=== PATIENT | male | born 1945 | race Caucasian/White ===

== ENCOUNTER 2020-10-12 06:08 | Outpatient (REF) | payer OTHER, SELFPAY ==
[2020-10-12 11:42] LABS: Alanine Aminotransferase 22 U/L (0-40); Albumin Level 4.2 g/dL (3.5-5.0); Alkaline Phosphatase 58 U/L (39-117); Anion Gap 12 (12-20); Aspartate Amino Transferase 27 U/L (5-37); Bilirubin Total 0.6 mg/dL (0.0-1.0); Blood Urea Nitrogen 25 mg/dL (9-16); Calcium 8.9 mg/dL (8.4-10.2); Carbon Dioxide 28 mmol/L (22-29); Chloride 100 mmol/L (96-108); Cholesterol 138 mg/dL; Estimated Glomerular Filt Rate > 60; Glucose Fasting 99 mg/dL (60-99); HDL Cholesterol 30 mg/dL; LDL Cholesterol Calculated 90 mg/dl; Potassium 4.3 mmol/L (3.3-5.1); Sodium 136 mmol/L (135-145); Triglycerides 93 mg/dL
[2020-10-12 11:49] LABS: Estimated Average Glucose 117 mg/dL; Hemoglobin A1c % 5.7 %
== END 2020-10-12 06:09 | disposition home or self-care (01) ==
LOC: HO.HMGCLDS 06:08
PROVIDERS: PCP Internal Medicine; Visit Provider Internal Medicine
DX: E78.5 Hyperlipidemia, unspecified (principal); I10 Essential (primary) hypertension; R73.9 Hyperglycemia, unspecified
CPT/HCPCS: 36415; 80053; 80061; 83036

== ENCOUNTER → 2020-10-18 15:07 | Outpatient (BNVA) | payer OTHER, SELFPAY | PROVIDERS: PCP Internal Medicine; Visit Provider Internal Medicine Cardiovascular Disease | DX: I25.10 Atherosclerotic heart disease of native coronary artery without angina pectoris (principal); I10 Essential (primary) hypertension | CPT/HCPCS: 93005 ==

== ENCOUNTER → 2020-10-25 07:42 | Outpatient (REF) | payer OTHER, SELFPAY ==
--- NOTE | 2020-10-25 07:49 | CA_ITS ---
Acquisition Time: 2020-10-25 08:44:19 Total Exercise Time: 00:05:58 Test Indications: Screening for CAD Medications: ASA ATENOLOL LISINOPRIL ATORVASTATIN HCTZ/TRIAMTERENE Protocol: FANTA Max HR: 126 BPM 86% of Pred: 146 BPM Max BP: 158/068 mmHG Max Work Load: 7.0 METS Exercise stress test using Fanta protocol. Total of 5 min 58 sec. METS 7.00, and TAPHR up to 86%. . Denies any anginal sx. EKG with occ. PVC's in Recovery. Ischemic changes seen in some lateral and inferior leads. Normotensive response to exercise. Patient has no symptoms with his previous NE. ? The need for diagnostic cardiac catheterization. tests reviewed with Dr. Casillas Referred By: Klaus Casillas Overread By: Michelle Hodge
== END ==
LOC: HO.CARD 07:42
PROVIDERS: Visit Provider Internal Medicine Cardiovascular Disease
DX: I25.10 Atherosclerotic heart disease of native coronary artery without angina pectoris (principal)
CPT/HCPCS: 93017

== ENCOUNTER 2020-11-15 06:07 | Outpatient (REF) | payer OTHER, SELFPAY ==
[2020-11-15 11:24] LABS: Prothrombin Time 12.1 SEC (10.8-13.0)
[2020-11-15 11:26] LABS: Hematocrit 35.1 % (42-52); Hemoglobin 11.7 g/dl (14.0-18.0); Mean Corpuscular HGB Conc 33.3 g/dl (31.0-36.0); Mean Corpuscular Hemoglobin 29.9 pg (27.0-33.0); Mean Corpuscular Volume 89.8 fL (80-98); Mean Platelet Volume 12.2 fL (9.4-12.4); Platelet Count 133 X10*3/uL (160-400); Red Blood Count 3.91 X10*6/uL (4.60-5.80); Red Cell Distribution Width 12.4 % (11.0-16.0); White Blood Count 5.5 X10*3/uL (4.8-10.8)
[2020-11-15 11:55] LABS: Anion Gap 13 (12-20); Blood Urea Nitrogen 32 mg/dL (9-16); Carbon Dioxide 26 mmol/L (22-29); Chloride 102 mmol/L (96-108); Estimated Glomerular Filt Rate > 60; Glucose Random 100 mg/dL (60-115); Potassium 4.6 mmol/L (3.3-5.1); Sodium 136 mmol/L (135-145)
== END 2020-11-15 06:08 | disposition home or self-care (01) ==
LOC: HO.HMGCLDS 06:07
PROVIDERS: PCP Internal Medicine; Visit Provider Internal Medicine Cardiovascular Disease
DX: I25.10 Atherosclerotic heart disease of native coronary artery without angina pectoris (principal)
CPT/HCPCS: 36415; 80048; 85027; 85610

== ENCOUNTER → 2020-12-13 15:19 | Outpatient (BNVA) | payer OTHER, SELFPAY | PROVIDERS: PCP Internal Medicine; Visit Provider Internal Medicine Cardiovascular Disease ==

== ENCOUNTER → 2021-03-28 14:43 | Outpatient (BNVA) | payer OTHER, SELFPAY | PROVIDERS: PCP Internal Medicine; Referring Provider Internal Medicine; Visit Provider Internal Medicine Cardiovascular Disease | DX: I25.10 Atherosclerotic heart disease of native coronary artery without angina pectoris (principal); I21.9 Acute myocardial infarction, unspecified; I10 Essential (primary) hypertension; R73.9 Hyperglycemia, unspecified; E78.5 Hyperlipidemia, unspecified; Z98.61 Coronary angioplasty status | CPT/HCPCS: 93005 ==

== ENCOUNTER → 2021-09-26 15:02 | Outpatient (BNVA) | payer OTHER, SELFPAY | PROVIDERS: PCP Internal Medicine; Referring Provider Internal Medicine; Visit Provider Internal Medicine Cardiovascular Disease ==

== ENCOUNTER 2021-10-09 05:59 | Outpatient (REF) | payer OTHER, SELFPAY ==
[2021-10-09 11:40] LABS: Hematocrit 35.9 % (42.0-52.0); Hemoglobin 12.1 g/dl (14.0-18.0); Mean Corpuscular HGB Conc 33.7 g/dl (31.0-36.0); Mean Corpuscular Hemoglobin 30.1 pg (27.0-33.0); Mean Corpuscular Volume 89.3 fL (80.0-98.0); Mean Platelet Volume 11.4 fL (9.4-12.4); Platelet Count 139 X10*3/uL (160-400); Red Blood Count 4.02 X10*6/uL (4.60-5.80); Red Cell Distribution Width 12.6 % (11.0-16.0); White Blood Count 5.5 X10*3/uL (4.8-10.8)
[2021-10-09 11:53] LABS: Estimated Average Glucose 114 mg/dL; Hemoglobin A1c % 5.6 %
[2021-10-09 12:05] LABS: Alanine Aminotransferase 17 U/L (0-40); Alkaline Phosphatase 63 U/L (39-117); Anion Gap 11 (12-20); Aspartate Amino Transferase 25 U/L (5-37); Bilirubin Total 0.7 mg/dL (0.0-1.0); Blood Urea Nitrogen 16 mg/dL (9-16); Calcium 9.3 mg/dL (8.4-10.2); Carbon Dioxide 28 mmol/L (22-29); Chloride 100 mmol/L (96-108); Cholesterol 125 mg/dL; Estimated Glomerular Filt Rate > 60; Glucose Fasting 103 mg/dL (60-99); HDL Cholesterol 31 mg/dL; LDL Cholesterol Calculated 79 mg/dl; Potassium 4.2 mmol/L (3.3-5.1); Sodium 135 mmol/L (135-145); Triglycerides 79 mg/dL
== END 2021-10-09 06:00 | disposition home or self-care (01) ==
LOC: HO.HMGCLDS 05:59
PROVIDERS: Visit Provider Internal Medicine
DX: E78.5 Hyperlipidemia, unspecified (principal); I10 Essential (primary) hypertension; I25.10 Atherosclerotic heart disease of native coronary artery without angina pectoris; R73.9 Hyperglycemia, unspecified
CPT/HCPCS: 36415; 80053; 80061; 83036; 85027

== ENCOUNTER 2022-04-18 06:03 | Outpatient (REF) | payer OTHER, SELFPAY ==
[2022-04-18 12:04] LABS: Creatinine Urine 48.22 mg/dL; Microalbum/Creatinine Ratio Ur 16.5 ug/mg cr
[2022-04-18 12:05] LABS: Estimated Average Glucose 111 mg/dL; Hemoglobin A1c % 5.5 %
[2022-04-18 12:30] LABS: Alanine Aminotransferase 23 U/L (0-40); Albumin Level 4.2 g/dL (3.5-5.0); Alkaline Phosphatase 59 U/L (39-117); Anion Gap 13 (12-20); Aspartate Amino Transferase 32 U/L (5-37); Bilirubin Total 0.5 mg/dL (0.0-1.0); Blood Urea Nitrogen 27 mg/dL (9-16); Calcium 9.2 mg/dL (8.4-10.2); Carbon Dioxide 26 mmol/L (22-29); Chloride 99 mmol/L (96-108); Cholesterol 122 mg/dL; Estimated Glomerular Filt Rate > 60; Glucose Fasting 106 mg/dL (60-99); HDL Cholesterol 35 mg/dL; LDL Cholesterol Calculated 68 mg/dl; Potassium 4.3 mmol/L (3.3-5.1); Prostate Specific Antigen Scr 3.31 ng/mL (<0.05-4.0); Sodium 134 mmol/L (135-145); Triglycerides 96 mg/dL
== END 2022-04-18 06:04 | disposition home or self-care (01) ==
LOC: HO.HMGCLDS 06:03
PROVIDERS: PCP Internal Medicine; Visit Provider Internal Medicine
DX: Z12.5 Encounter for screening for malignant neoplasm of prostate (principal); E78.5 Hyperlipidemia, unspecified; R73.9 Hyperglycemia, unspecified; I10 Essential (primary) hypertension; I25.10 Atherosclerotic heart disease of native coronary artery without angina pectoris
CPT/HCPCS: 36415; 80053; 80061; 82043; 83036; 84153

== ENCOUNTER → 2022-05-27 15:45 | Outpatient (BNVA) | payer OTHER, SELFPAY | PROVIDERS: PCP Internal Medicine; Referring Provider Internal Medicine; Visit Provider Internal Medicine Cardiovascular Disease | DX: I10 Essential (primary) hypertension (principal); E78.5 Hyperlipidemia, unspecified; Z98.61 Coronary angioplasty status | CPT/HCPCS: 93005 ==

== ENCOUNTER 2022-11-06 11:51 | Outpatient (REF) | payer OTHER, SELFPAY ==
[2022-11-06 14:41] LABS: Anion Gap 12 (12-20); Blood Urea Nitrogen 21 mg/dL (9-16); Calcium 9.4 mg/dL (8.4-10.2); Carbon Dioxide 28 mmol/L (22-29); Chloride 98 mmol/L (96-108); Estimated Glomerular Filt Rate > 60; Glucose Random 86 mg/dL (60-115); Potassium 4.5 mmol/L (3.3-5.1); Sodium 133 mmol/L (135-145)
== END 2022-11-06 11:52 | disposition home or self-care (01) ==
LOC: HO.HMGCLDS 11:51
PROVIDERS: PCP Internal Medicine; Visit Provider Internal Medicine
DX: E87.1 Hypo-osmolality and hyponatremia (principal); I25.10 Atherosclerotic heart disease of native coronary artery without angina pectoris; R60.9 Edema, unspecified
CPT/HCPCS: 36415; 80048

== ENCOUNTER 2022-11-18 12:58 | Outpatient (REF) | payer OTHER, SELFPAY ==
--- NOTE | ~2022-11-18 | XR_ITS ---
EXAMINATION: XR SHOULDER, LEFT CLINICAL INFORMATION: Left shoulder pain COMPARISON: None TECHNIQUE: Three views of the left shoulder. FINDINGS: No fracture or dislocation. The glenohumeral joint is well aligned with prominent osteophytes and mild narrowing of the joint space. Narrowing of the subacromial space. Moderate hypertrophic degenerative change of the acromioclavicular joint. The visualized lung is clear. The visualized ribs are intact. XR/XR shoulder LT min 2V IMPRESSION: Moderate degenerative changes of the left shoulder.
== END 2022-11-18 12:59 | disposition home or self-care (01) ==
LOC: HO.HMGCX 12:58
PROVIDERS: PCP Internal Medicine; Visit Provider Physician Assistant
DX: M25.512 Pain in left shoulder (principal)
CPT/HCPCS: 73030

== ENCOUNTER → 2022-11-20 14:47 | Outpatient (REF) | payer OTHER, SELFPAY ==
--- NOTE | 2022-11-20 14:49 | CA_ITS ---
Transthoracic Echocardiogram Patient (Last, First, Middle): Zander Brambila, Gender: Male Date of : 1945 Age: 77 Procedure Date: 11/20/2022 Procedure Type: Transthoracic Echocardiogram Location: OP Height: 172. cm Weight: 68.04 kg BSA: 1.80 m2 Heart Rate: 65 bpm BP: 135 / 55 mmHg Bulk Coolers Installer: BLANK Referring MD: Hollie Starks MD Symptoms: I25.10 - Atherosclerotic heart disease of [place] coronary artery without... Study Quality: Fair ECG Rhythm: Sinus Conclusions: - The left ventricular systolic function is normal. The calculated ejection fraction is 57% by biplane method. - The basal inferior segment is akinetic. Findings Left Ventricle Normal left ventricular cavity size. There is normal left ventricular wall thickness. The left ventricular systolic function is normal. The calculated ejection fraction is 57% by biplane method. There is evidence of regional wall motion abnormalities. Wall Motion Rest Echo Findings The basal inferior segment is akinetic. Aortic Valve There is no aortic valve stenosis. Mitral Valve There is mild mitral annular calcification. There is no mitral valve stenosis. Great Vessels The asc aorta is normal in size. Small plaque is seen in the sino tubular ridge. Pericardium/Pleural There is no evidence of pericardial effusion. Prior Study Comparison No significant change compared to prior study dated: 02/08/2019. Inferior wall motion abnormality noted on prior images. Measurements 2D Linear Measurements IVSd: 0.81 0.6-0.9/0.6-1.0 cm LVIDd: 4.36 3.9-5.3/4.2-5.9 cm LVIDd Index: 2.42 2.4-3.2/2.2-3.1 cm/m2 LVIDs: 2.98 2.0-3.6 cm LVPWd: 0.90 0.7-1.1 cm LV Mass: 146.97 67-162/88-224 g LV Mass Index: 81.65 43-95/49-115 g/m2 LVOT Diam: 2.20 3.0+(-)1.3 cm 2D Systolic Function EF 4C: 63.70 >55% EF 2C: 53.60 >55% EF BiP: 56.70 >55% LVOT LVOT Pk Harry: 0.84 LVOT Mn Harry: 0.58 LVOT VTI: 0.20 LVOT Pk Grad: 3.00 LVOT Mn Grad: 2.00 LVOT Diam: 2.20 LVOT Area: 3.80 Tricuspid Valve RA Press: 3.00 Updated in Other Vendor System with Status of Final Austin Kim MD electronically signed on 11/20/2022 3:54:32 PM with status of Final
== END ==
LOC: HO.CARD 14:47
PROVIDERS: Visit Provider Internal Medicine
DX: R60.9 Edema, unspecified (principal); I25.10 Atherosclerotic heart disease of native coronary artery without angina pectoris; E87.1 Hypo-osmolality and hyponatremia
CPT/HCPCS: 93308

== ENCOUNTER 2022-11-25 14:19 | Outpatient (REF) | payer OTHER, SELFPAY ==
[2022-11-25 15:08] LABS: Influenza A PCR NEGATIVE (Negative); Influenza B PCR NEGATIVE (Negative); Resp Syncy Virus RNA Qual PCR NEGATIVE (Negative); SARS COV2 PCR INHOUSE NEGATIVE (Negative)
== END 2022-11-25 14:20 | disposition home or self-care (01) ==
LOC: HO.LNP 14:19
PROVIDERS: Visit Provider Internal Medicine
DX: Z20.822 Contact with and (suspected) exposure to COVID-19 (principal); R43.9 Unspecified disturbances of smell and taste
CPT/HCPCS: 0241U

== ENCOUNTER → 2022-12-19 10:58 | Outpatient (BNVA) | payer OTHER, SELFPAY | PROVIDERS: PCP Internal Medicine; Visit Provider Physician Assistant | DX: M19.012 Primary osteoarthritis, left shoulder (principal) | CPT/HCPCS: 20610; J1040 ==

== ENCOUNTER 2023-04-21 06:02 | Outpatient (REF) | payer OTHER, SELFPAY ==
[2023-04-21 08:15] LABS: B Type Natriuretic Peptide 98 pg/mL (<100)
[2023-04-21 11:59] LABS: MANUAL DIFF FLAG NO
[2023-04-21 12:38] LABS: Basophils Percent Auto 0.8 % (0-2); Eosinophils Absolute Auto 0.4 X10*3/uL (0.0-0.4); Eosinophils Percent Auto 8.4 % (0-4); Hematocrit 33.6 % (42.0-52.0); Hemoglobin 11.8 g/dl (14.0-18.0); Imm Gran Abs Auto 0.01 X10*3/uL (0.00-0.03); Imm Gran Pct Auto 0.2 % (0.0-0.4); Lymphocytes Absolute Auto 1.3 X10*3/uL (1.2-4.9); Lymphocytes Percent Auto 25.7 % (20-40); Mean Corpuscular HGB Conc 35.1 g/dl (31.0-36.0); Mean Corpuscular Volume 88.2 fL (80.0-98.0); Mean Platelet Volume 12.2 fL (9.4-12.4); Monocytes Absolute Auto 0.6 X10*3/uL (0.1-1.2); Monocytes Percent Auto 11.4 % (2-11); Neutrophils Absolute Auto 2.7 x10*3/uL (2.0-8.3); Neutrophils Percent Auto 53.5 % (45-73); Platelet Count 120 X10*3/uL (160-400); Red Blood Count 3.81 X10*6/uL (4.60-5.80); Red Cell Distribution Width 12.6 % (11.0-16.0); White Blood Count 5.1 X10*3/uL (4.8-10.8)
[2023-04-21 12:41] LABS: Alanine Aminotransferase 21 U/L (0-40); Albumin Level 3.9 g/dL (3.5-5.0); Alkaline Phosphatase 58 U/L (39-117); Anion Gap 11 (12-20); Aspartate Amino Transferase 31 U/L (5-37); Bilirubin Total 0.6 mg/dL (0.0-1.0); Blood Urea Nitrogen 18 mg/dL (9-16); Calcium 9.3 mg/dL (8.4-10.2); Carbon Dioxide 26 mmol/L (22-29); Chloride 101 mmol/L (96-108); Cholesterol 121 mg/dL; Estimated Glomerular Filt Rate > 60; Glucose Fasting 105 mg/dL (60-99); HDL Cholesterol 37 mg/dL; LDL Cholesterol Calculated 66 mg/dl; Potassium 3.9 mmol/L (3.3-5.1); Sodium 134 mmol/L (135-145); Total Protein 7.2 g/dL (6.5-8.0); Triglycerides 92 mg/dL
[2023-04-22 05:50] LABS: Estimated Average Glucose 111 mg/dL; Hemoglobin A1c % 5.5 %
== END 2023-04-21 06:03 | disposition home or self-care (01) ==
LOC: HO.HMGCLDS 06:02
PROVIDERS: PCP Internal Medicine; Visit Provider Internal Medicine
DX: Z00.00 Encounter for general adult medical examination without abnormal findings (principal); E78.5 Hyperlipidemia, unspecified; E87.1 Hypo-osmolality and hyponatremia; I25.10 Atherosclerotic heart disease of native coronary artery without angina pectoris; R73.9 Hyperglycemia, unspecified; I10 Essential (primary) hypertension
CPT/HCPCS: 36415; 80053; 80061; 83036; 83880; 85025

== ENCOUNTER 2023-04-28 13:00 | Outpatient (AMB) | payer OTHER, SELFPAY ==
[2023-04-28 13:34] VITALS: BP 108/62; PULSE 57; O2SAT 98; BMI 22.7
--- NOTE | 2023-04-28 13:34 | A.OFFPC_ITS ---
Vital Signs 04/28/23 13:34 Height 5 ft 8 in Weight 149 lb BMI 22.7 BP 108/62 Blood Pressure Location Lt brachial Position Sitting Pulse 57 Pulse Source Pulse Oximeter Pulse Oximetry (%) 98 Oxygen Delivery Method Room Air Intake Visit Reasons: Annual Physical Intake Note: Pt is here today for PE. Allergies No Known Allergies [No Known Allergies*] Allergy (Verified 04/28/23 13:37) Medication List - Last Reconciled 04/28/23 by Hollie Starks MD aspirin 81 mg PO DAILY atenolol (Tenormin) 50 mg PO DAILY atorvastatin (Lipitor) 40 mg PO DAILY clopidogrel 75 mg PO DAILY dextromethorphan-guaifenesin 10-200 mg (Coricidin HBP Chest Congestion-Cough) 1 tab-cap PO Q8H PRN fluticasone propionate 50 mcg/actuation (Flonase Allergy Relief) 1 spray i ntranasal BID PRN fluticasone propionate 50 mcg/actuation (Flonase Allergy Relief) 1 spray intranasal DAILY lisinopril (Zestril) 40 mg PO DAILY sildenafil (Viagra) 50 mg PO DAILY PRN sildenafil (Viagra) 100 mg PO DAILY PRN triamterene-hydrochlorothiazid 37.5-25 mg 1 cap PO QAM Tobacco use date assessed: 04/28/23 Fall risk assessment: No Falls in past year Last assessed Fall Risk: 04/28/23 Dental Screening Dental Screen Date: 04/28/23 Did you have a dental visit in the last 12 months?: Yes Did you have a dental problem in the last 6 months where you did not have access to dental care?: No Was dental information given to patient?: Patient has dentist HPI Annual Physical HPI Details Pt presents for PE PFSH Medical History Hernia Herniated disc Hyperglycemia Hyperlipidemia Hypertension Normocytic anemia Surgical History S/P colonoscopic polypectomy Family History Father Pneumonia Mother Diabetes mellitus Sister No problems noted. 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 1. Little interest or pleasure in doing things: not at all 2. Feeling down, depressed, or hopeless: not at all 3. Trouble falling or staying asleep, or sleeping too much: not at all 4. Feeling tired or having little energy: not at all 5. Poor appetite or overeating: not at all 6. Feeling bad about yourself - or that you are a failure or have let yourself or your family down: not at all 7. Trouble concentrating on things, such as reading the newspaper or watching television: not at all 8. Moving or speaking so slowly that other people could have noticed. Or the opposite - being so fidgety or restless that you have been moving around a lot more than usual: not at all 9. Thoughts that you would be better off or of hurting yourself in some way: not at all Total score: 0 Depression Screening Interpretation: Negative Source: Developed by Drs. Efrain Nelson, Kathleen Strong, Matt Mason and colleagues, with an educational jamila from [employer] Thrive Questionnaire Date Thrive assessed: 04/28/23 I am a: Patient What is your living situation today?: I have a steady place to live Within the past 12 months, did the food you bought not last and you didn't have the money to get more?: Never true Within the past 12 months, did you worry whether your food would run out before you got money to buy more?: Never true Do you have trouble paying for medicines?: No Do you have trouble getting transportation to medical appointments?: No Do you have trouble paying your heating and electricity bill?: No Do you have trouble taking care of your child, family member or friend?: No Do you have trouble with day-to-day activities such as bathing, preparing meals, shopping, managing finances, etc.?: No Are you currently unemployed and looking for a job?: No Are you interested in more education?: No Please select the resources that you would like help with: None Currently or been in a relationship where the following occur: no concerns reported AUDIT C Alcohol Use Questionnaire (AUDIT-C) 1. How often do you have a drink containing alcohol?: Monthly or less 2. How many drinks containing alcohol do you have on a typical day when you are drinking?: 1 or 2 3. How often do you have six or more drinks on one occasion?: Never Total Score: 1 MARLEY-7 AMB Questionnaire MARLEY-7 Date MARLEY - 7 assessed: 04/28/23 Feeling nervous, anxious, or on edge: 0 = Not at all Not being able to stop or control worryin = Not at all Worrying too much about different things: 0 = Not at all Trouble relaxin = Not at all Being so restless that it is hard to sit still: 0 = Not at all Becoming easily annoyed or irritable: 0 = Not at all Feeling afraid as if something awful might happen: 0 = Not at all Total MARLEY-7 score (0-4 normal; 5-9 mild; 10-14 moderate; 15-21 severe): 0 Source: Developed by Drs. Efrain Nelson, Kathleen Strong, Matt Mason and colleagues, with an educational jamila from [employer]. Review of Systems Const All systems reviewed & are unremarkable except as noted in HPI and below Reports no additional complaints Eyes Reports no additional complaints ENT Reports no additional complaints Card Reports no additional complaints Resp Reports no additional complaints GI Reports no additional complaints Reports no additional complaints Physical exam (Primary Care) Vital Signs: Last Vital Signs Pulse 57 04/28/23 13:34 BP 108/62 04/28/23 13:34 Pulse Ox 98 04/28/23 13:34 Oxygen Delivery Method Room Air 04/28/23 13:34 BMI result Body Mass Index 22.7 Tobacco/Smoking Status: Tobacco use Status Tobacco use date assessed 04/28/23 04/28/23 13:40 Patient Tobacco Use Status Former Tobacco user 04/28/23 13:36 e-Cigarette/Vaping Use Never Used 04/28/23 13:36 PHQ-9: PHQ-9 Score PHQ-9: Total score 0 04/28/23 13:41 Depression Screening Interpretation: Negative Thrive Assessment: Date of Thrive Assessment Date Thrive assessed 04/28/23 04/28/23 13:41 Currently or been in a relationship where the following occur: no concerns reported Const General: no acute distress HENMT Ears: hearing grossly normal bilaterally Mouth: Normal oral and palatal mucosa present Eyes General: appearance normal, both eyes and all related structures Resp Effort & Inspection: normal respiratory effort Auscultation: clear to auscultation bilaterally Cardio Rhythm: regular rhythm Heart sounds: S1 normal heart sound present and S2 normal heart sound present Bruits: Abdominal aortic bruit present GI Inspection: Yes normal to inspection Palpation (GI): Abdominal aortic bruit present Extrem General: Yes no clubbing, cyanosis or edema Assessment and Plan Assessment & Plan (1) Hyperglycemia: Code(s): R73.9 - Hyperglycemia, unspecified Plan: A1c is 5.5, continue ADA diet regular exercise (2) Hyperlipidemia: Code(s): E78.5 - Hyperlipidemia, unspecified Plan: Continue statin (3) Hypertension: Comment: Stable Code(s): I10 - Essential (primary) hypertension Plan: Continue current medications (4) CAD (coronary artery disease): Comment: silent ischemia. 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 He has FFR positive mid LAD stenosis which is collateralizing the right coronary artery. s/p MICHAEL placement 11/2020 Code(s): I25.10 - Atherosclerotic heart disease of [place] coronary artery without angina pectoris (5) Annual physical exam: Code(s): Z00.00 - Encounter for general adult medical examination without abnormal findings Plan: Return for physical in 1 year Orders: Orders Comprehensive [place]. Panel Fast 365 Days E78.5 - Hyperlipidemia, unspecified, I10 - Essential (primary) hypertension, I25.10 - Atherosclerotic heart disease of [place] coronary artery without angina pectoris, R73.9 - Hyperglycemia, unspecified Complete Blood Count Auto Diff 365 Days E78.5 - Hyperlipidemia, unspecified, I10 - Essential (primary) hypertension, I25.10 - Atherosclerotic heart disease of [place] coronary artery without angina pectoris, R73.9 - Hyperglycemia, unspecified Lipid Panel 365 Days E78.5 - Hyperlipidemia, unspecified, I10 - Essential (p rimary) hypertension, I25.10 - Atherosclerotic heart disease of [place] coronary artery without angina pectoris, R73.9 - Hyperglycemia, unspecified PSA,Total (Free>4and<10) 365 Days E78.5 - Hyperlipidemia, unspecified, I10 - Essential (primary) hypertension, I25.10 - Atherosclerotic heart disease of [place] coronary artery without angina pectoris, R73.9 - Hyperglycemia, un specified Hemoglobin A1c 365 Days E78.5 - Hyperlipidemia, unspecified, I10 - Essential (primary) hypertension, I25.10 - Atherosclerotic heart disease of [place] coronary artery without angina pectoris, R73.9 - Hyperglycemia, unspecified Coding Level of Care Code Est Pt Prev Care >65y(67184) Diagnoses Hyperglycemia R73.9 Hyperlipidemia E78.5 Hypertension I10 CAD (coronary artery disease) I25.10 Annual physical exam Z00.00
== END 2023-04-28 14:19 | disposition home or self-care (01) ==
PROVIDERS: PCP Internal Medicine; Visit Provider Internal Medicine
DX: R73.9 Hyperglycemia, unspecified (principal); E78.5 Hyperlipidemia, unspecified; I10 Essential (primary) hypertension; I25.10 Atherosclerotic heart disease of native coronary artery without angina pectoris; Z00.00 Encounter for general adult medical examination without abnormal findings
CPT/HCPCS: 99397

== ENCOUNTER 2023-05-14 14:01 | Outpatient (AMB) | payer OTHER, SELFPAY ==
--- NOTE | 2023-05-14 14:12 | A.OFFVIS_ITS ---
Intake Vital Signs 05/14/23 14:13 Height 5 ft 8 in Weight 150 lb 5.684 oz BMI 22.9 BP 102/54 L Blood Pressure Location Lt brachial Position Sitting Pulse 63 Pulse Source Monitor Intake Visit Reasons: 1 YEAR FOLLOW UP Intake Note: 1 year follow up with EKG. Telecommunications Technician Required: No Accompanied by: Self / Same As Patient Allergies No Known Allergies [No Known Allergies*] Allergy (Verified 05/14/23 14:16) Medication List - Last Reconciled 05/14/23 by Klaus Casillas MD aspirin 81 mg PO DAILY atenolol (Tenormin) 50 mg PO DAILY atorvastatin (Lipitor) 40 mg PO DAILY clopidogrel 75 mg PO DAILY dextromethorphan-guaifenesin 10-200 mg (Coricidin HBP Chest Congestion-Cough) 1 tab-cap PO Q8H PRN fluticasone propionate 50 mcg/actuation (Flonase Allergy Relief) 1 spray intranasal DAILY lisinopril (Zestril) 40 mg PO DAILY sildenafil (Viagra) 100 mg PO DAILY PRN triamterene-hydrochlorothiazid 37.5-25 mg 1 cap PO QAM HPI HPI Comments History of Present Illness Details 78-year-old gentleman here for follow-up. He has background history of known coronary artery disease with occluded right coronary artery and severe LAD stenosis which was FFR positive. He was taken for PCI to LAD. He had right radial artery dissection. He is asymptomatic. No bleeding issues. He has been following Mediterranean diet and has lost 20 pounds. 05/14/2023: He returns for follow-up. He has been doing well. He continues to work 40 hours per week. No chest discomfort shortness of breath. He had some shoulder injury and is asking whether he can use NSAIDs. I have advised him to use them as needed and not regularly specially not multiple doses in a day. He has been taking aspirin Plavix since his PCI. [facility] Medical History Hernia Herniated disc Hyperglycemia Hyperlipidemia Hypertension Normocytic anemia Surgical History S/P colonoscopic polypectomy Family History Father Pneumonia Mother Diabetes mellitus Sister No problems noted. 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 Cognitive needs: No Hearing needs: Yes Vision needs: No Review of Systems Const Denies weakness ENT Denies dizziness Card Denies chest pain, Denies chest pain with activity, Denies syncope, Denies rapid heart rate, Denies pedal edema, Denies edema, Denies leg edema, Denies lightheadedness, Denies palpitations, Denies dyspnea, Denies dyspnea on exertion and Denies orthopnea Resp Denies cough, Denies dyspnea and Denies dyspnea on exertion GI Denies hematochezia and Denies change in stool character Musc Denies abnormal gait, Denies muscle cramps, Denies muscle weakness, Denies numbness, Denies radiating pain into limb and Denies tingling Neuro Denies abnormal gait, Denies dizziness, Denies syncope, Denies numbness, Denies tingling and Denies weakness Endo Denies palpitations Physical Exam Vital Signs: Last Vital Signs Pulse 63 05/14/23 14:13 BP 102/54 L 05/14/23 14:13 BMI result Body Mass Index 22.9 GENERAL APPEARANCE: in no acute distress, well developed, well nourished. NECK/THYROID: no carotid bruit, no jugular venous distention. SKIN: no suspicious lesions, warm and dry. HEART: no murmurs, regular rate and rhythm, S1, S2 normal. LUNGS: clear to auscultation bilaterally. ABDOMEN: normal, bowel sounds present, soft, nontender, nondistended. EXTREMITIES: no clubbing, cyanosis, or edema. PERIPHERAL PULSES: equal. NEUROLOGIC: nonfocal, alert and oriented. PSYCH: mood/affect full range. Office Procedures EKG Details: Sinus rhythm 63 beats per minute, normal ECG, QTC 409 milliseconds. [id number], Complete Assessment & Plan Assessment & Plan (1) Stable angina: Code(s): I20.8 - Other forms of angina pectoris Plan: Pleasant 78-year-old gentleman who is presenting for follow-up. He previously had LAD PCI. He has been doing well. No chest discomfort shortness of breath. He is doing well. I have advised him to stop the aspirin and use Plavix monotherapy going forward. He can use NSAIDs as needed but not regularly. I have advised him to use Tylenol more regularly if he has pain in his shoulder. Thank you for allowing me to participate in the care of your patient. Please feel free to contact me if you have any questions. Medications: Discontinued aspirin Discontinued Reason: Doctor's Order 81 mg PO DAILY 90 tabs 3RF Coding Level of Care Code Est Pt Level 3 (00478) Diagnoses Stable angina I20.8 CPT Codes EKG - CPT: 99742-[id number], Complete ([id number])
[2023-05-14 14:13] VITALS: BP 102/54; PULSE 63; BMI 22.9
== END 2023-05-14 14:36 | disposition home or self-care (01) ==
PROVIDERS: PCP Internal Medicine; Visit Provider Internal Medicine Cardiovascular Disease
DX: I20.8 Other forms of angina pectoris (principal)
CPT/HCPCS: 93010; 99213

== ENCOUNTER → 2023-05-14 14:01 | Outpatient (BNVA) | payer OTHER, SELFPAY | PROVIDERS: PCP Internal Medicine; Visit Provider Internal Medicine Cardiovascular Disease | DX: I20.8 Other forms of angina pectoris (principal) | CPT/HCPCS: 93005 ==

== ENCOUNTER 2023-05-19 13:25 | Outpatient (AMB) | payer OTHER, SELFPAY ==
--- NOTE | 2023-05-19 13:54 | MHC.OFFWIV ---
Intake Vital Signs 05/19/23 14:04 Height 5 ft 8 in Weight 146 lb BMI 22.2 BP 132/80 Blood Pressure Location Lt brachial Position Sitting Pulse 65 Pulse Source Pulse Oximeter Temp 97.6 F Temp Source Temporal Artery Scan Pulse Oximetry (%) 98 Oxygen Delivery Method Room Air Intake Visit Reasons: EP Muscle weak/Flu (masked) Intake Note: Pt is here c/o body aches, and diarhea. Patient Tobacco Use Status: Former Tobacco user Quit Date: 1983 Allergies No Known Allergies [No Known Allergies*] Allergy (Verified 05/19/23 14:35) Medication List - Last Reconciled 05/19/23 by Henrry Martinez MD atenolol (Tenormin) 50 mg PO DAILY atorvastatin (Lipitor) 40 mg PO DAILY clopidogrel 75 mg PO DAILY dextromethorphan-guaifenesin 10-200 mg (Coricidin HBP Chest Congestion-Cough) 1 tab-cap PO Q8H PRN fluticasone propionate 50 mcg/actuation (Flonase Allergy Relief) 1 spray intranasal DAILY lisinopril (Zestril) 40 mg PO DAILY sildenafil (Viagra) 100 mg PO DAILY PRN triamterene-hydrochlorothiazid 37.5-25 mg 1 cap PO QAM Do you need a note to return to daycare/school/sports/work: No HPI EP Muscle weak/Flu (masked) HPI Details 78-year-old male presents to the office for a sick visit. He is complaining of weakness, fatigue and shoulder pain for the past day. Patient complains of pain in the upper part of the neck. Is also feeling symptoms of malaise and fatigue. Started having symptoms of diarrhea this morning. [facility] Medical History Hernia Herniated disc Hyperglycemia Hyperlipidemia Hypertension Normocytic anemia Surgical History S/P colonoscopic polypectomy Family History Father Pneumonia Mother Diabetes mellitus Sister No problems noted. 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 Cognitive needs: No Hearing needs: Yes Vision needs: No Physical Exam Vital Signs: Last Vital Signs Temp 97.6 F 05/19/23 14:04 Pulse 65 05/19/23 14:04 BP 132/80 05/19/23 14:04 Pulse Ox 98 05/19/23 14:04 Oxygen Delivery Method Room Air 05/19/23 14:04 BMI result Body Mass Index 22.2 Const General: cooperative and healthy appearing Nutritional Appearance: well nourished Orientation/consciousness: patient oriented x3 Limitations: no limitations HEENT Head: Yes normal to inspection Eyes General: appearance normal, both eyes and all related structures Neck Neck: Yes normal visual inspection Chest Chest palpation & inspection: normal palpation of entire chest wall Resp Effort & Inspection: normal respiratory effort Neuro General: patient oriented x3 Extrem Other: Right shoulder: Movement arm at the shoulder causes crepitus. Full range of motion Assessment & Plan Assessment & Plan (1) Shoulder strain: Code(s): S46.919A - Strain of unspecified muscle, fascia and tendon at shoulder and upper arm level, unspecified arm, initial encounter Plan: X-ray images personally reviewed by me, evidence of DJD. I suggested he contact his PCP for a referral to Orthopedic surgery for possible steroid injections. COVID testing and Lyme testing done. Will call with the results. Orders: Orders Liver Panel Today S43.401A - Unspecified sprain of right shoulder joint, initial encounter, S46.919A - Strain of unspecified muscle, fascia and tendon at shoulder and upper arm level, unspecified arm, initial encounter Basic Metabolic Panel Today S43.401A - Unspecified sprain of right shoulder joint, initial encounter, S46.919A - Strain of unspecified muscle, fascia and tendon at shoulder and upper arm level, unspecified arm, initial encounter SARS-CoV2/FLU/RSV Today R43.9 - Unspecified disturbances of smell and taste, S43.401A - Unspecified sprain of right shoulder joint, initial encounter, S46.919A - Strain of unspecified muscle, fascia and tendon at shoulder and upper arm level, unspecified arm, initial encounter Erythrocyte Sedimentation Rate Today S43.401A - Unspecified sprain of right shoulder joint, initial encounter, S46.919A - Strain of unspecified muscle, fascia and tendon at shoulder and upper arm level, unspecified arm, initial encounter Complete Blood Count no Diff Today S43.401A - Unspecified sprain of right shoulder joint, initial encounter, S46.919A - Strain of unspecified muscle, fascia and tendon at shoulder and upper arm level, unspecified arm, initial encounter Creatine Kinase Total Today S43.401A - Unspecified sprain of right shoulder joint, initial encounter, S46.919A - Strain of unspecified muscle, fascia and tendon at shoulder and upper arm level, unspecified arm, initial encounter XR shoulder RT min 2V Today S43.401A - Unspecified sprain of right shoulder joint, initial encounter Lyme IgG/IgM w/reflex to WB Today S43.401A - Unspecified sprain of right shoulder joint, initial encounter Coding Level of Care Code Est Pt Level 4 (06159) Diagnoses Shoulder strain S46.919A
[2023-05-19 14:04] VITALS: BP 132/80; PULSE 65; TEMP 36.4; O2SAT 98; BMI 22.2
== END 2023-05-19 14:50 | disposition home or self-care (01) ==
PROVIDERS: PCP Internal Medicine; Visit Provider Internal Medicine
DX: S46.919A Strain of unspecified muscle, fascia and tendon at shoulder and upper arm level, unspecified arm, initial encounter (principal)
CPT/HCPCS: 99214

== ENCOUNTER 2023-05-19 14:32 | Outpatient (REF) | payer OTHER, SELFPAY ==
--- NOTE | ~2023-05-19 | XR_ITS ---
EXAMINATION: XR SHOULDER, RIGHT CLINICAL INFORMATION: Right shoulder sprain. COMPARISON: Right shoulder 03/29/2020. TECHNIQUE: Three views of the right shoulder. FINDINGS: Alignment is anatomic. Mild degenerative changes across the glenohumeral joint with inferior glenoid spurring. Moderate degenerative changes at the acromioclavicular joint with undersurface spurring of the acromion. The visualized lungs are clear. The visualized rib cage appears normal. XR/XR shoulder RT min 2V IMPRESSION: Degenerative changes in the shoulder. No fracture.
[2023-05-19 16:25] LABS: Alanine Aminotransferase 19 U/L (0-40); Albumin Level 4.5 g/dL (3.5-5.0); Alkaline Phosphatase 68 U/L (39-117); Anion Gap 16 (12-20); Aspartate Amino Transferase 28 U/L (5-37); Bilirubin Direct 0.3 mg/dL (0.0-0.5); Bilirubin Total 0.7 mg/dL (0.0-1.0); Blood Urea Nitrogen 41 mg/dL (9-16); Calcium 9.9 mg/dL (8.4-10.2); Carbon Dioxide 23 mmol/L (22-29); Chloride 98 mmol/L (96-108); Estimated Glomerular Filt Rate 34; Glucose Random 103 mg/dL (60-115); Potassium 4.2 mmol/L (3.3-5.1); Sodium 133 mmol/L (135-145); Total Protein 8.2 g/dL (6.5-8.0)
[2023-05-19 16:46] LABS: Hematocrit 36.7 % (42.0-52.0); Hemoglobin 12.9 g/dl (14.0-18.0); Mean Corpuscular HGB Conc 35.1 g/dl (31.0-36.0); Mean Corpuscular Hemoglobin 31.5 pg (27.0-33.0); Mean Corpuscular Volume 89.5 fL (80.0-98.0); Mean Platelet Volume 11.9 fL (9.4-12.4); Platelet Count 137 X10*3/uL (160-400); White Blood Count 4.3 X10*3/uL (4.8-10.8)
[2023-05-19 16:56] LABS: Influenza A PCR NEGATIVE (Negative); Influenza B PCR NEGATIVE (Negative); Resp Syncy Virus RNA Qual PCR NEGATIVE (Negative); SARS COV2 PCR INHOUSE POSITIVE (Negative)
[2023-05-19 17:32] LABS: Erythrocyte Sedimentation Rate 27 MM/HR (0-15)
[2023-05-21 05:20] LABS: Lyme Abs Screen <0.90 index
== END 2023-05-19 14:33 | disposition home or self-care (01) ==
LOC: HO.HMGCX 14:32
PROVIDERS: PCP Internal Medicine; Visit Provider Internal Medicine
DX: S43.401A Unspecified sprain of right shoulder joint, initial encounter (principal); S46.919A Strain of unspecified muscle, fascia and tendon at shoulder and upper arm level, unspecified arm, initial encounter; X58.XXXA Exposure to other specified factors, initial encounter; Y93.9 Activity, unspecified; Y92.9 Unspecified place or not applicable; Y99.9 Unspecified external cause status; R43.9 Unspecified disturbances of smell and taste; M25.511 Pain in right shoulder; Z20.828 Contact with and (suspected) exposure to other viral communicable diseases
CPT/HCPCS: 0241U; 36415; 73030; 80048; 80076; 82550; 85027; 85652; 86617; 86618

== ENCOUNTER 2023-05-27 10:30 | Outpatient (REF) | payer OTHER, SELFPAY ==
[2023-05-27 14:07] LABS: Anion Gap 12 (12-20); Blood Urea Nitrogen 20 mg/dL (9-16); Calcium 9.7 mg/dL (8.4-10.2); Carbon Dioxide 25 mmol/L (22-29); Chloride 100 mmol/L (96-108); Estimated Glomerular Filt Rate > 60; Glucose Random 94 mg/dL (60-115); Potassium 4.4 mmol/L (3.3-5.1); Sodium 133 mmol/L (135-145)
== END 2023-05-27 10:31 | disposition home or self-care (01) ==
LOC: HO.HMGCLDS 10:30
PROVIDERS: PCP Internal Medicine; Visit Provider Internal Medicine
DX: N17.9 Acute kidney failure, unspecified (principal)
CPT/HCPCS: 36415; 80048

== ENCOUNTER 2023-06-12 08:23 | Outpatient (AMB) | payer OTHER, SELFPAY ==
--- NOTE | 2023-06-12 08:30 | MHC.PC.OV ---
Vital Signs 06/12/23 08:31 Height 5 ft 8 in Weight 147 lb BMI 22.3 BP 106/60 Blood Pressure Location Lt brachial Position Sitting Pulse 61 Pulse Source Pulse Oximeter Pulse Oximetry (%) 98 Oxygen Delivery Method Room Air Intake Visit Reasons: Followup COVID-sinus congestion Intake Note: Pt is here today for a follow up visit after Covid. Pt c/o sinus congestion. Allergies No Known Allergies [No Known Allergies*] Allergy (Verified 06/12/23 08:32) Medication List - Last Reconciled 06/12/23 by Hollie Stakrs MD atenolol (Tenormin) 50 mg PO DAILY atorvastatin (Lipitor) 40 mg PO DAILY clopidogrel 75 mg PO DAILY dextromethorphan-guaifenesin 10-200 mg (Coricidin HBP Chest Congestion-Cough) 1 tab-cap PO Q8H PRN fluticasone propionate 50 mcg/actuation (Flonase Allergy Relief) 1 spray intranasal DAILY lisinopril (Zestril) 40 mg PO DAILY sildenafil (Viagra) 100 mg PO DAILY PRN triamterene-hydrochlorothiazid 37.5-25 mg 1 cap PO QAM Tobacco use date assessed: 04/28/23 HPI Followup COVID-sinus congestion HPI Details Pt presents c/o nasal congestion and clear discharge for 3 weeks. Patient tested positive for COVID 3 weeks ago. He denies fever chills shortness of breath sore throat facial pain. Patient denies seasonal allergies. He has been using Flonase nasal spray and taking Claritin for the last 3 days without significant relief. Hypertension is controlled on current medications [facility] Medical History Hernia Herniated disc Hyperglycemia Hyperlipidemia Hypertension Normocytic anemia Surgical History S/P colonoscopic polypectomy Family History Father Pneumonia Mother Diabetes mellitus Sister No problems noted. 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 Efrain Nelson, Kathleen Strong, Matt Mason and colleagues, with an educational jamila from [employer]. Review of Systems Const All systems reviewed & are unremarkable except as noted in HPI and below Reports no additional complaints Eyes Reports no additional complaints ENT Reports no additional complaints Card Reports no additional complaints Resp Reports no additional complaints GI Reports no additional complaints Reports no additional complaints Physical exam (Primary Care) Vital Signs: Last Vital Signs Pulse 61 06/12/23 08:31 BP 106/60 06/12/23 08:31 Pulse Ox 98 06/12/23 08:31 Oxygen Delivery Method Room Air 06/12/23 08:31 BMI result Body Mass Index 22.3 Tobacco/Smoking Status: Tobacco use Status Tobacco use date assessed 04/28/23 06/12/23 08:34 Patient Tobacco Use Status Former Tobacco user 06/12/23 08:34 e-Cigarette/Vaping Use Never Used 06/12/23 08:34 Thrive Assessment: Date of Thrive Assessment Date Thrive assessed 04/28/23 06/12/23 08:34 Const General: no acute distress [facility] General nose exam: Normal external nose present, Abnormal mucous membranes and turbinates present erythematous bilateral and Nasal discharge present mucoid Face and sinus: Yes normal facial exam and No sinus tenderness Neck Neck: Yes no lymphadenopathy and Yes supple Resp Auscultation: clear to auscultation bilaterally Cardio Rhythm: regular rhythm Heart sounds: S1 normal heart sound present and S2 normal heart sound present Assessment and Plan Assessment & Plan (1) Allergic rhinitis: Code(s): J30.9 - Allergic rhinitis, unspecified Plan: Continue Claritin and prednisone 20 mg daily for 5 days is prescribed. Patient was advised to use saline nasal spray (2) Hypertension: Comment: Stable Code(s): I10 - Essential (primary) hypertension Plan: cont meds Medications: New prednisone 20 mg PO DAILY 5 tabs 0RF Coding Level of Care Code Est Pt Level 3 (77402) Diagnoses Allergic rhinitis J30.9 Hypertension I10
[2023-06-12 08:31] VITALS: BP 106/60; PULSE 61; O2SAT 98; BMI 22.3
== END 2023-06-12 08:55 | disposition home or self-care (01) ==
PROVIDERS: PCP Internal Medicine; Visit Provider Internal Medicine
DX: J30.9 Allergic rhinitis, unspecified (principal); I10 Essential (primary) hypertension
CPT/HCPCS: 99213

== ENCOUNTER 2023-06-25 12:45 | Outpatient (AMB) | payer OTHER, SELFPAY ==
--- NOTE | 2023-06-25 12:50 | A.OFFVIS_ITS ---
Intake Vital Signs 06/25/23 12:54 Height 5 ft 8 in Weight 147 lb BMI 22.3 Intake Visit Reasons: ov- Primary osteoarthritis, left shoulder Intake Note: Zander is a 77 year old male who presents today for a follow up of left shoulder, last injection 12/19/22. Patient reports having bilateral shoulder pain. States last injection provided him relief until recently the past 3 weeks his pain returned. He has complaints of right shoulder pain since April and was seen at [facility] where xrays were taken and told he has arthritis. He is requesting to have bilateral shoulder cortisone injections. Allergies No Known Allergies [No Known Allergies*] Allergy (Verified 06/25/23 12:55) HPI ov- Primary osteoarthritis, left shoulder HPI Details 78-year-old male who returns to the [facility] today for a follow-up of left shoulder pain. He had his last injection on 12/19/22 which provided him relief until the past 3 months. He states he has bilateral shoulder pain which is equal in pain. He c/o right shoulder pain since April and was seen at walk- in clinic where x-rays were performed. He finds relief with heating pads on his right shoulder. He is interested in having a bilateral shoulder cortisone injection. He does not have a history of diabetes. [facility] Medical History Hernia Herniated disc Hyperglycemia Hyperlipidemia Hypertension Normocytic anemia Surgical History S/P colonoscopic polypectomy Family History Father Pneumonia Mother Diabetes mellitus Sister No problems noted. 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 Cognitive needs: No Hearing needs: Yes Vision needs: No Review of Systems Const All systems reviewed & are unremarkable except as noted in HPI and below Physical Exam Vital Signs: BMI result Body Mass Index 22.3 Const General: cooperative, healthy appearing, comfortable, no acute distress, well developed and alert Orientation/consciousness: patient oriented x3 HEENT Head: Yes normal to inspection, Yes normocephalic and Yes atraumatic Eyes General: appearance normal, both eyes and all related structures Resp Effort & Inspection: normal respiratory effort and able to speak in complete sentences Cardio Rate: regular rate Peripheral pulses: Peripheral pulses 2+ throughout GI Palpation (GI): Soft to palpation Skin Lesions: no lesions Rashes: no rashes Neuro General: patient oriented x3 Extrem Other: Left shoulder normal to inspection. No significant tenderness to palpation of the shoulder. Forward flexion to 175, external rotation to 90, internal rotation to S1. 5/5 RTC strength. Negative Gonzalez and cross body abduction. NVI. Office Procedures Joint Injection/Drain Joint Injection/Drain Primary Site: left shoulder Secondary Site: right shoulder Prep: site was prepped using aseptic technique, ethochloride spray was applied and injection warnings given Injected: 80 mg of, DepoMedrol, with 8 mL of, 1% plain lidocaine and in the subcromial space Approach Used: posterolateral Procedure: The patient tolerated the procedure well and there was some relief with the local anesthesia Coding 05195 - Glenohumeral/Tronchanteric Bursa/Intraarticular Procedure code (CPT) selection complete Results Reviewed Results Reviewed: 06/25/23 13:02 Lidocaine HCl 2 % MPF [Xylocaine 2 % MPF] 5 ml .ROUTE .STK-MED ONE methylPREDNISolone acetate [DEPO-MedroL] 80 mg .ROUTE .STK-MED ONE Assessment & Plan Assessment & Plan (1) Osteoarthritis of left shoulder: Code(s): M19.012 - Primary osteoarthritis, left shoulder Qualifiers: Osteoarthritis type: primary Qualified Code(s): M19.012 - Primary osteoarthritis, left shoulder Plan We discussed options today which include steroid injection. They did consent to move forward with the bilateral shoulder injection, which was tolerated well. I recommended rest, ice and elevation and OTC anti-inflammatories PRN for discomfort. If symptoms persist or worsens over the next 6-8 weeks, patient will contact the office, otherwise follow-up as needed. Patient Instructions: Scribed for Kalia Izaguirre PA-C, by Duc Chamberlain medical editor, on 06/25/2023 a t 12:45 PM EST. Kalia Cisse PA-C, have personally reviewed and agree with the information entered by the scribe. Coding Level of Care Code Est Pt Level 3 (75417) Diagnoses Primary osteoarthritis of left shoulder M19.012 Osteoarthritis type: primary CPT Codes Coding - Joint 7: 03756 - Glenohumeral/Tronchanteric Bursa/Intraarticular ([id number])
[2023-06-25 12:54] VITALS: BMI 22.3
== END 2023-06-25 13:46 | disposition home or self-care (01) ==
PROVIDERS: PCP Internal Medicine; Visit Provider Physician Assistant
DX: M19.012 Primary osteoarthritis, left shoulder (principal); M19.011 Primary osteoarthritis, right shoulder
CPT/HCPCS: 20610; 99213

== ENCOUNTER → 2023-06-25 12:45 | Outpatient (BNVA) | payer OTHER, SELFPAY | PROVIDERS: PCP Internal Medicine; Visit Provider Physician Assistant | DX: M19.012 Primary osteoarthritis, left shoulder (principal); M25.511 Pain in right shoulder | CPT/HCPCS: 20610; J1040 ==

== ENCOUNTER 2023-11-14 13:27 | Outpatient (AMB) | payer OTHER, SELFPAY ==
--- NOTE | 2023-11-14 14:01 | A.OFFVIS_ITS ---
Intake Vital Signs 11/14/23 14:09 Height 5 ft 8 in Weight 147 lb BMI 22.3 Intake Visit Reasons: ov- Primary osteoarthritis, left shoulder Intake Note: Zander a 78 year old male presents today for an evaluation of bilateral shoulder pain, last injection 06/25/23. Patient reports injections provided him with relief. States his left shoulder causes him the most discomfort. Limited ROM. He is requesting to repeat injections and also requesting if he could be prescribed medication to help with his sore muscles. Allergies No Known Allergies [No Known Allergies*] Allergy (Verified 11/14/23 14:04) HPI ov- Primary osteoarthritis, left shoulder HPI Details 78-year-old male who [facility] for a follow-up of shoulder pain. He states the right shoulder is doing well, he c/o increased pain in the left shoulder. He states his last injection was helpful. He was able to perform most ADLs without pain. He states over the last several weeks he has noticed increased pain with activity. [facility] Medical History Hernia Herniated disc Hyperglycemia Hyperlipidemia Hypertension Normocytic anemia Surgical History S/P colonoscopic polypectomy Family History Father Pneumonia Mother Diabetes mellitus Sister No problems noted. 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 Tenderness over the bicipital groove and along the deltoid region of the shoulder. Forward flexion to 175, external rotation to 90, internal rotation to S1. 5/5 RTC strength. Negative Gonzalez and cross body abduction. NVI. Office Procedures Joint Injection/Drain Joint Injection/Drain Primary Site: left shoulder Prep: site was prepped using aseptic technique, ethochloride spray was applied and injection warnings given Injected: 80 mg of, DepoMedrol, with 8 mL of, 1% plain lidocaine and in the subcromial space Approach Used: posterolateral Procedure: The patient tolerated the procedure well and there was some relief with the local anesthesia Coding 28542 - Glenohumeral/Tronchanteric Bursa/Intraarticular Procedure code (CPT) selection complete Assessment & Plan Assessment & Plan (1) Osteoarthritis of left shoulder: Code(s): M19.012 - Primary osteoarthritis, left shoulder Qualifiers: Osteoarthritis type: primary Qualified Code(s): M19.012 - Primary osteoarthritis, left shoulder Plan We discussed options today which include steroid injection. They did consent to move forward with the left shoulder injection, which was tolerated well. I recommended rest, ice and elevation and OTC anti-inflammatories PRN for discomfort. If symptoms persist or worsens over the next 6-8 weeks, patient will contact the office, otherwise follow-up as needed. Patient Instructions: Scribed for Kalia Izaguirre PA-C, by Duc Chamberlain medical affairs specialist, on 11/14/2023 at 1:45 PM EST. I, Kalia Izaguirre PA-C, have personally reviewed and agree with the information entered by the scribe. Coding Level of Care Code Est Pt Level 3 (16656) Diagnoses Primary osteoarthritis of left shoulder M19.012 Osteoarthritis type: primary CPT Codes Coding - Joint 7: 34210 - Glenohumeral/Tronchanteric Bursa/Intraarticular ([id number])
[2023-11-14 14:09] VITALS: BMI 22.3
== END 2023-11-14 14:32 | disposition home or self-care (01) ==
PROVIDERS: PCP Internal Medicine; Visit Provider Physician Assistant
DX: M19.012 Primary osteoarthritis, left shoulder (principal)
CPT/HCPCS: 20610; 99213

== ENCOUNTER → 2023-11-14 13:27 | Outpatient (BNVA) | payer OTHER, SELFPAY | PROVIDERS: PCP Internal Medicine; Visit Provider Physician Assistant | DX: M19.012 Primary osteoarthritis, left shoulder (principal) | CPT/HCPCS: 20610; J1040 ==

== ENCOUNTER 2024-03-04 12:30 | Outpatient (AMB) | payer OTHER, SELFPAY ==
[2024-03-04 13:04] VITALS: BP 120/58; PULSE 61; O2SAT 96; BMI 22.7
--- NOTE | 2024-03-04 13:04 | A.OFFPC_ITS ---
Vital Signs 03/04/24 13:04 Height 5 ft 8 in Weight 149 lb BMI 22.7 BP 120/58 L Blood Pressure Location Lt brachial Position Sitting Pulse 61 Pulse Source Pulse Oximeter Pulse Oximetry (%) 96 Oxygen Delivery Method Room Air Intake Visit Reasons: Wax on ears Allergies No Known Allergies [No Known Allergies*] Allergy (Verified 03/04/24 13:04) Medication List - Last Reconciled 03/04/24 by Hollie Starks MD atenolol (Tenormin) 50 mg PO DAILY atorvastatin (Lipitor) 40 mg PO DAILY clopidogrel 75 mg PO DAILY fluticasone propionate 50 mcg/actuation (Flonase Allergy Relief) 1 spray intranasal DAILY lisinopril (Zestril) 40 mg PO DAILY sildenafil (Viagra) 100 mg PO DAILY PRN triamterene-hydrochlorothiazid 37.5-25 mg 1 cap PO QAM Tobacco use date assessed: 03/04/24 Fall risk assessment: No Falls in past year Last assessed Fall Risk: 03/04/24 Dental Screening Dental Screen Date: 03/04/24 Did you have a dental visit in the last 12 months?: Yes Did you have a dental problem in the last 6 months where you did not have access to dental care?: No Was dental information given to patient?: Patient has dentist HPI Wax on ears HPI Details Patient presents for the follow-up hypertension hyperlipidemia controlled on current medications. 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 [facility] Medical History Hyperglycemia Herniated disc Hernia Hyperlipidemia Hypertension Normocytic anemia Surgical History S/P colonoscopic polypectomy Family History Father Pneumonia Mother Diabetes mellitus Sister No problems noted. 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 How often do you have a drink containing alcohol?: Monthly or less 2. How many drinks containing alcohol do you have on a typical day when you are drinking?: 1 or 2 3. How often do you have six or more drinks on one occasion?: Never Total Score: 1 Score Reviewed/Action Taken: Yes MARLEY-7 AMB Questionnaire MARLEY-7 Date MARLEY - 7 assessed: 04/28/23 Source: Developed by Drs. Efrain Nelson, Kathleen Strong, Matt Mason and colleagues, with an educational jamila from [employer]. Review of Systems Const All systems reviewed & are unremarkable except as noted in HPI and below Eyes Reports no additional complaints ENT Reports no additional complaints Card Reports no additional complaints Resp Reports no additional complaints GI Reports no additional complaints Reports no additional complaints Physical exam (Primary Care) Vital Signs: Last Vital Signs Pulse 61 03/04/24 13:04 BP 120/58 L 03/04/24 13:04 Pulse Ox 96 03/04/24 13:04 Oxygen Delivery Method Room Air 03/04/24 13:04 BMI result Body Mass Index 22.7 Tobacco/Smoking Status: Tobacco use Status Tobacco use date assessed 03/04/24 03/04/24 13:05 Patient Tobacco Use Status Former Tobacco user 03/04/24 13:05 e-Cigarette/Vaping Use Never Used 03/04/24 13:05 Thrive Assessment: Date of Thrive Assessment Date Thrive assessed 04/28/23 03/04/24 13:05 Const General: no acute distress HENMT Head: Yes normal to inspection Ears: TM's normal bilaterally Neck Neck: Yes supple Resp Effort & Inspection: normal respiratory effort Auscultation: clear to auscultation bilaterally Cardio Rhythm: regular rhythm Heart sounds: S1 normal heart sound present and S2 normal heart sound present GI Inspection: Yes normal to inspection Assessment and Plan Assessment & Plan (1) Impacted cerumen, right ear: Comment: Cerumen removed from the right ear canal, no complications with procedure, and canal clear with TMs within normal limits afterwards. Patient had no complaints or concerns Code(s): H61.21 - Impacted cerumen, right ear Plan: Patient was advised to use Debrox ear drops to prevent wax buildup regularly (2) Hyperlipidemia: Code(s): E78.5 - Hyperlipidemia, unspecified Plan: Continue statin (3) Hypertension: Comment: Stable Code(s): I10 - Essential (primary) hypertension Plan: Continue current medications Coding Level of Care Code Est Pt Level 3 (74958) Diagnoses Impacted cerumen, right ear H61.21 Hyperlipidemia E78.5 Hypertension I10
== END 2024-03-04 13:36 | disposition home or self-care (01) ==
LOC: HO.HMGC 12:30
PROVIDERS: PCP Internal Medicine; Visit Provider Internal Medicine
DX: H61.21 Impacted cerumen, right ear (principal); E78.5 Hyperlipidemia, unspecified; I10 Essential (primary) hypertension
CPT/HCPCS: 99213

== ENCOUNTER 2024-04-16 08:04 | Outpatient (AMB) | payer OTHER, SELFPAY ==
--- NOTE | 2024-04-16 08:10 | AM.OFFWIN_ITS ---
Intake Vital Signs 04/16/24 08:11 Height 5 ft 8 in Weight 149 lb BMI 22.7 BP 158/68 H Blood Pressure Location Rt brachial Position Sitting Pulse 62 Pulse Source Pulse Oximeter Temp 97.8 F Temp Source Oral Pulse Oximetry (%) 94 Oxygen Delivery Method Room Air Intake Visit Reasons: EP Fell/head cold Intake Note: pt c/o fall last night, hurt ribs RT side and head cold Patient Tobacco Use Status: Former Tobacco user Allergies No Known Allergies [No Known Allergies*] Allergy (Verified 04/16/24 08:10) Do you need a note to return to daycare/school/sports/work: No HPI HPI Comments History of Present Illness Details 79-year-old male with past medical histo ry significant for essential hypertension, hyperlipidemia, coronary artery disease status post PCI who presented to the walk-in clinic complaining of multiple complaints. First, patient is complaining of some sinus congestion as well as left ear fullness. He denies any fever/chills. He denies any cough. He denies any sore throat. He denies any significant rhinorrhea. Second, patient states he had a mechanical fall last night. He states he tripped on something on the floor causing him to fall on his right side. He has been complaining of right lower rib pain since then. He denies any chest pain or shortness of breath. He denies any lightheadedness or dizziness prior to the fall. He states the fall was purely mechanical. He denies any ecchymosis to the area. Patient states he did notice several small spots of dried blood in his urine this morning; however, he denies any juan c/gross hematuria, dysuria, urinary frequency/urgency. Patient denies injuring himself in any other way and denies any head trauma or loss of consciousness. He denies any shoulder pain, elbow pain, wrist pain, hip pain, neck/low back pain, etc. [facility] Medical History Hyperglycemia Herniated disc Hernia Hyperlipidemia Hypertension Normocytic anemia Surgical History S/P colonoscopic polypectomy Family History Father Pneumonia Mother Diabetes mellitus Sister No problems noted. 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 Cognitive needs: No Hearing needs: Yes Vision needs: No Review of Systems Const All systems reviewed & are unremarkable except as noted in HPI and below Reports no additional complaints Eyes Reports no additional complaints ENT Reports no additional complaints Card Reports no additional complaints Resp Reports no additional complaints GI Reports no additional complaints Reports no additional complaints Musc Reports no additional complaints Skin/Breast Reports system reviewed and no additional complaints, except as documented Neuro Reports no additional complaints Psych Reports no additional complaints Endo Reports no additional complaints Khris/Lymph Reports no additional complaints Aller/Immun Reports no additional complaints Physical Exam Vital Signs: BMI result Body Mass Index 22.7 Const Other: Vital signs reviewed. Constitutional: Non-toxic appearing. No acute distress. Well-developed and well-nourished. HEENT: Normocephalic and atraumatic. There is some fluid noted behind the left tympanic membrane; however, tympanic membranes are without erythema or edema bilaterally. External auditory canals without erythema or edema or cerumen impaction bilaterally. Moist mucous membranes. Skin: Warm and dry. No rashes or lesions noted. Neck: Full and painless range of motion. No cervical lymphadenopathy. Cardio: Regular rate and rhythm. No murmurs, gallops, or rubs. No lower extremity edema. No JVD. Pulmonary: No respiratory distress. No accessory muscle usage. Clear to auscultation bilaterally without wheezing, crackles, or rhonchi. Gastrointestinal: Soft, non-tender, and non-distended in all 4 quadrants. Normoactive bowel sounds in all 4 quadrants. Genitourinary: No CVA tenderness. Musculoskeletal: Tenderness to palpation to the left posterior/lateral rib area. No ecchymosis. Neuro: Alert and oriented x4. Cranial nerves 2-12 grossly intact. No focal deficits appreciated. Psych: Normal mood and affect. Results AMB Urinalysis, Automated UA Leukoctes 0 Adeline/uL Last Edit by Miguel Guillermo CMA on 04/16/24 08:56 UA Nitrite Negative Last Edit by Miguel Guillermo CMA on 04/16/24 08:56 UA Urobilinogen 0.2 mg/dL Last Edit by Miguel Guillermo, GARCIA on 04/16/24 08:56 UA Protein 15 mg/dL Last Edit by Miguel Guillermo, GARCIA on 04/16/24 08:56 UA pH 6.0 Last Edit by Miguel Guillermo, GARCIA on 04/16/24 08:56 UA Blood 200 Sandro/uL Last Edit by Miguel Guillermo, GARCIA on 04/16/24 08:56 UA Specific [place] 1.015 Last Edit by Miguel Guillermo CMA on 04/16/24 08:56 UA Ketone Negative Last Edit by Miguel Guillermo CMA on 04/16/24 08:56 UA Bilirubin 0 mg/dL Last Edit by Miguel Guillermo, GARCIA on 04/16/24 08:56 UA Glucose 0 mg/dL Last Edit by Miguel Guillermo CMA on 04/16/24 08:56 Assessment & Plan Assessment & Plan (1) Sinus congestion: Code(s): R09.81 - Nasal congestion Plan: Patient had complained of some nasal/sinus congestion left ear fullness. He denies any other URI symptoms. On physical examination, there is some fluid behind his left ear although tympanic membranes are clear without erythema or edema bilaterally and his external auditory canals are clear without edema or cerumen impaction bilaterally. Patient likely has a mild viral versus allergic rhinitis. Recommended continuing with fluticasone nasal spray as well as starting antihistamines such as cetirizine or loratadine. Patient verbalizes understanding and he is in agreement with the plan. (2) Rib pain on right side: Code(s): R07.81 - Pleurodynia Plan: Patient states he had a mechanical trip and fall last night that caused him to hit the right side of his ribs. He denies any lightheadedness/dizziness or chest pain/shortness of breath prior to the fall and states that it was truly mechanical. Patient has been complaining of right rib pain since then. On physical examination, he has tenderness to palpation of the right posterior/lateral ribs. He did notice a few miniscule spots of dried blood in his urine but denies any juan c/gross hematuria. A urinalysis was obtained, which showed 3+ blood. A chest x-ray and x-ray of the right ribs was obtained, which showed at least 2 fractured ribs posteriorly. Given posterior fractures and hematuria, there is concern for renal injury. We discussed the treatment plan for the rib fractures, which includes pain management with p.o. acetaminophen and [id number] lidocaine patches. Patient was also educated on the importance of pulmonary toileting with incentive spirometer to avoid atelectasis/pneumonia. He was also advised to brace his right side with coughing, sneezing, laughing etc. Patient was instructed to proceed directly to the emergency room given concern for renal injury. I spoke with [facility] and they were made aware of patient's arrival. Patient verbalizes understanding and he is in agreement with the plan. Orders: Orders XR ribs RT min 3V w CXR1V Today R07.81 - Pleurodynia AMB Urinalysis Automated Today Z13.9 - Encounter for screening, unspecified Coding Level of Care Code Est Pt Level 3 (37753) Diagnoses Sinus congestion R09.81 Rib pain on right side R07.81
[2024-04-16 08:11] VITALS: BP 158/68; PULSE 62; TEMP 36.6; O2SAT 94; BMI 22.7
== END 2024-04-16 09:57 | disposition home or self-care (01) ==
PROVIDERS: PCP Internal Medicine; Visit Provider Physician Assistant Medical
DX: R09.81 Nasal congestion (principal); R07.81 Pleurodynia; Z13.9 Encounter for screening, unspecified
CPT/HCPCS: 81003; 99213

== ENCOUNTER 2024-04-16 08:25 | Outpatient (REF) | payer OTHER, SELFPAY ==
--- NOTE | ~2024-04-16 | XR_ITS ---
EXAMINATION: XR RIBS, RIGHT CLINICAL INFORMATION: Pleurodynia. COMPARISON: Chest radiograph 09/29/2019. TECHNIQUE: 3 views of the right ribs were obtained. FINDINGS: Mildly displaced right-sided anterolateral ninth and 10th rib fractures. Possible trace amount of right-sided pleural fluid. No pneumothorax. Focal airspace densities overlying the right infrahilar region/medial right lower lung field. Stable central bronchovascular prominence. Normal heart size. XR/XR ribs RT min 3V w CXR1V IMPRESSION: 1. Mildly displaced right-sided anterolateral 9th and 10th rib fractures. 2. Focal airspace densities in the right infrahilar region/medial right lower lung field could represent contusions or infectious/inflammatory infiltrate. Recommend clinical correlation and a short-term follow-up examination to ensure resolution.
== END 2024-04-16 08:26 | disposition home or self-care (01) ==
LOC: HO.HMGCX 08:25
PROVIDERS: PCP Internal Medicine; Visit Provider Physician Assistant Medical
DX: R07.81 Pleurodynia (principal)
CPT/HCPCS: 71101

== ENCOUNTER 2024-04-16 09:25 | Emergency (ER) | payer OTHER, SELFPAY ==
[2024-04-16] VITALS (9 sets, daily range): BP systolic 139–172; BP diastolic 58–65; PULSE 59–66; RESP 16–18; TEMP 36.2–37.1; O2SAT 98–100; BMI 22.8
--- NOTE | ~2024-04-16 | CT_ITS ---
EXAMINATION: CT CERVICAL SPINE WITHOUT CONTRAST CLINICAL INFORMATION: Neck pain, trauma. COMPARISON: None available. TECHNIQUE: Multiple helical unenhanced images were acquired through the cervical spine. Multiplanar computer reformatted images were acquired from the dataset in the sagittal and coronal plane. This CT examination was performed using dose optimization techniques as appropriate, variously including the following: *Automated exposure control *Adjustment of mA and/or kV according to patient size (this includes techniques or standardized protocols for targeted exams where dose is matched to indication/reason for exam; i.e. extremities or head) *Use of iterative reconstruction technique DLP: 311 mGy-cm FINDINGS: CT examination of the cervical spine shows no prevertebral soft tissue swelling. Vertebral body height and alignment are maintained. No acute fracture or subluxation is evident. The odontoid process, cervicothoracic and cervical medullary junctions are normal. There are no bone lesions. Review of individual intervertebral levels shows degenerative disc disease most advanced at C5-C6, with a vacuum phenomenon, disc space narrowing and anterior and posterior osteophyte formation. Similarly, at C6-C7 and C7-T1, disc space narrowing, prominent anterior and posterior osteophytes are present. There are also degenerative changes at the atlantoaxial articulation. There is a 21 x 15 mm ovoid low density right thyroid lobe mass. Bilateral stylohyoid ligament calcification is present, which can be a cause of neck pain or dysphagia. CT/CT cervical spine wo IV con IMPRESSION: 1. No acute cervical spine fracture or subluxation. 2. Multilevel degenerative disc disease, most advanced at C5-C6 and C6-C7.. 3. Right thyroid lobe nodule. If not done elsewhere previously, thyroid ultrasound is recommended. 4. Bilateral stylohyoid ligament calcification, incidentally noted, which can be associated with neck pain or dysphagia. Fleischner guidelines were followed.
--- NOTE | ~2024-04-16 | CT_ITS ---
EXAMINATION: CT chest w IV con, CT abdomen pelvis w IV con CLINICAL INFORMATION: Reason for Exam R sided rib pain s/p fall COMPARISON: None TECHNIQUE: Multidetector volumetric imaging was performed through the chest, abdomen and pelvis with IV contrast. There was administration of 85 mL of Omnipaque [address] examination was performed using dose optimization techniques as appropriate, variously including the following: *Automated exposure control *Adjustment of mA and/or kV according to patient size (this includes techniques or standardized protocols for targeted exams where dose is matched to indication/reason for exam; i.e. extremities or head) *Use of iterative reconstruction technique DLP: 857 mGy-cm FINDINGS: LUNG: No focal consolidation, nodules or masses. No pulmonary contusion is detected. PLEURA: No pleural effusion, hemothorax or pneumothorax. MEDIASTINUM: Normal heart size. No pericardial effusion. No hilar or mediastinal lymphadenopathy. VASCULAR: Normal caliber thoracic aorta. There are coronary artery calcifications. CHEST WALL/AXILLA: No axillary or internal mammary lymphadenopathy. LIVER, GALLBLADDER, AND BILIARY TREE: The liver is normal in size, shape, and attenuation. No focal hepatic lesion or biliary ductal dilatation is present. The gallbladder is unremarkable with no evidence of radiopaque gallstones, gallbladder wall thickening, or obvious pericholecystic inflammatory changes. PANCREAS: Unremarkable. SPLEEN: Splenic granulomata are present. ADRENAL GLANDS: Unremarkable. KIDNEYS AND URETERS: There are multiple bilateral renal cysts. Other small low density lesions in both kidneys are presumably cysts though too small to characterize. The kidneys are normal in size, shape, and attenuation. No hydronephrosis, hydroureter, or calculi seen. No perinephric stranding. BLADDER: Unremarkable. GASTROINTESTINAL TRACT: The small and large bowel are unremarkable. The appendix is unremarkable. ABDOMINAL WALL: No significant hernia is appreciated. LYMPH NODES: Normal. VASCULAR: Unremarkable. PELVIC VISCERA: Unremarkable. Prominent vascular structures are noted in the left inguinal region, with an appearance suggestive of varices. There is severe proximal iliac and distal aortic atherosclerosis. The distal aortic lumen is narrowed to 6 mm. There is near total occlusion of both the left and right common iliac arterial origin. OSSEOUS STRUCTURES: There are right posterior-lateral seventh, eighth and ninth nondisplaced rib fractures. In the spine, generalized demineralization is present as are severe degenerative changes at all levels, but no compression fracture is evident. CT/CT abdomen pelvis w IV con IMPRESSION: 1. Nondisplaced right posterior-lateral seventh, eighth and ninth rib fractures. No underlying hemopneumothorax or pneumothorax. 2. No other acute post traumatic findings in the chest, abdomen or pelvis. 3. Severe aortoiliac atherosclerosis with near total occlusion of the common iliac arteries bilaterally and marked narrowing of the distal aorta. 4. Prominent left inguinal blood vessel; correlation with physical examination is recommended. Ultrasound might also be of benefit if clinically warranted.
--- NOTE | ~2024-04-16 | CT_ITS ---
EXAMINATION: CT HEAD WITHOUT CONTRAST CLINICAL INFORMATION: Fall, head strike COMPARISON: None available TECHNIQUE: Contiguous axial imaging was performed from the skull base to vertex without intravenous administration of contrast. This CT examination was performed using dose optimization techniques as appropriate, variously including the following: *Automated exposure control *Adjustment of mA and/or kV according to patient size (this includes techniques or standardized protocols for targeted exams where dose is matched to indication/reason for exam; i.e. extremities or head) *Use of iterative reconstruction technique DLP: 617 mGy-cm FINDINGS: CT examination of the brain shows age-related involutional changes with prominence of the ventricles and sulci. Periventricular white matter hypodensities are evident, likely on the basis of chronic microvascular ischemic disease. No acute hemorrhage, mass effect or shift is evident. In the posterior fossa, the brainstem, cerebellum and fourth ventricle are unremarkable. The orbits and bony calvarium are intact. The globes are aphakic. Mucosal thickening is evident within left maxillary, bilateral ethmoid and left frontal sinuses. Mild bilateral sphenoid sinus mucosal thickening is also evident. CT/CT head/brain wo IV con IMPRESSION: 1. Age-related involutional changes and microvascular disease. 2. No acute hemorrhage, mass effect, shift or acute intracranial pathology. 3. Sinusitis.
--- NOTE | 2024-04-16 09:46 | ED_ITS ---
HPI - Fall General Chief Complaint: Fall Stated Complaint: broken ribs Time Seen by Provider: 04/16/24 09:43 Source: patient Mode of arrival: ambulatory Limitations: no limitations History of Present Illness ED Provider: Bo YOUNG HPI Narrative: This is a 79-year-old male history of acute renal failure, angina, edema, dysplastic nevus, CAD, hyperlipidemia, hypertension, hyperglycemia, anemia presenting to the emergency department with concerns of right-sided rib pain that started last night status post trip and fall, he lost his balance, tripped, fell and hit the right side of his chest, since then has been having pain worse with movement, palpation, breathing better at rest. No head strike he had a is on clopidogrel. No loss of consciousness. Patient reports he went to urgent Care he had an x-ray and he was told to of his ribs were broken and then he was advised to come in for further evaluation and treatment. He denies preceding symptoms to fall such as chest pain, shortness of breath and weakness. Patient also complains of mild hematuria which started status post fall. At this time he denies chest pain, shortness of breath, fevers, chills, nausea, vomiting, abdominal pain, headache, vision changes, dizziness and weakness. GCS-15 NIHSS- 0 Related Data Previous Rx's ?Medication ?Instructions ?Recorded sildenafil 100 mg tablet (Viagra) 100 mg PO DAILY PRN sexual 11/06/22 activity #30 tabs fluticasone propionate 50 1 spray intranasal DAILY #9.9 mL 03/18/23 mcg/actuation nasal spray,suspension (Flonase Allergy Relief) clopidogrel 75 mg tablet 75 mg PO DAILY #90 tabs 05/22/23 atorvastatin 40 mg tablet (Lipitor) 40 mg PO DAILY #90 tabs 06/03/23 lisinopril 40 mg tablet (Zestril) 40 mg PO DAILY #90 tabs 12/18/23 atenolol 50 mg tablet (Tenormin) 50 mg PO DAILY #90 tabs 02/10/24 triamterene 37.5 1 cap PO QAM #90 caps 04/05/24 mg-hydrochlorothiazide 25 mg capsule Allergies Allergy/AdvReac Type Severity Reaction Status Date / Time No Known Allergies Allergy Verified 04/16/24 09:32 [No Known Allergies*] Review of Systems 2 Review of Systems: Yes all other systems are reviewed and are negative [facility] Past Medical History Attestation statement: The following information was validated with the patient. Source: old records reviewed and nursing notes reviewed Medical History Hyperglycemia Herniated disc Hernia Hyperlipidemia Hypertension Normocytic anemia Surgical History S/P colonoscopic polypectomy Family History Family History Father Pneumonia Mother Diabetes mellitus Sister No problems noted. 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 Oriented X3.? No acute distress.? Head: Normocephalic, atraumatic, no step-offs or deformities Eyes: Pupils equal, round and reactive to light.? CVS: Normal heart rate and rhythm.? Pulses normal.? Respiratory: No respiratory distress.? Breath sounds normal.? Abdomen: Soft and nontender.? Skin: Skin warm and dry.? Normal skin color.? Normal skin turgor.? MSK: Tenderness to palpation to the left posterior/lateral rib area around ribs 7-10 No ecchymosis. Extremities: No lower extremity edema.? No calf ttp. 5/5 strength to bilateral upper and lower extremities Back: No midline tenderness, no C-spine tenderness, full range of motion, no CVA tenderness bilaterally Neuro: Oriented X 3.? No motor deficit.? No sensory deficit. CN 2-12 intact Course Reevaluation(s) Reevaluation #1: CBC no acute findings needing intervention. Chemistry sodium of 130 IV fluids ordered. BUN and creatinine slightly elevated at baseline no acute findings. Troponin negative. EKG nonischemic. UA without infection. CT scan does confirm nondisplaced right posterior lateral 7th 8th and 9th rib fractures no hemothorax or pneumothorax. No other posttraumatic findings and chest, abdomen or pelvis. Arthrosclerotic disease noted in the aorto iliac region. Left inguinal blood vessel prominent. Palpable pulses bilaterally no leg edema. I do not need emergent Doppler at this time unlikely arterial or venous occlusion. Degenerative changes in the cervical spine. Right thyroid nodule, Time: 14:49 Reevaluation #2: Patient was given incentive spirometer. Patient to be admitted to the hospital for observation Pain still present more morphine ordered as he tolerated it well before. Time: 14:49 Reevaluation #3: Hospitalist do not feel like this is an appropriate admission for this facility, they recommend trauma transfer to [facility] ED Dr. Lopez accepts transfer at this time. Time: 15:27 Medications Administered Discontinued Medications Generic Name Dose Route Start Last Admin Trade Name Freq PRN Reason Stop Dose Admin Sodium Chloride 1,000 mls @ 999 mls/hr 04/16/24 11:15 04/16/24 13:34 Ns IV 04/16/24 12:15 Infused .Q1H1M HIMA Infusion Iohexol 100 ml 04/16/24 11:22 04/16/24 11:22 Iohexol 350 Mg/Ml 100 Ml Infus..Btl IV 04/16/24 11:23 85 ml ONCE ONE Administration Lidocaine 1 patch 04/16/24 10:03 04/16/24 10:34 Lidocaine 4 % Patch Adh..Patch TRANSDERMA 04/16/24 10:04 1 patch ONCE ONE Administration Protocol Morphine Sulfate 4 mg 04/16/24 09:59 04/16/24 10:34 Morphine Sulfate 4 Mg/Ml Cartridge IVPUSH 04/16/24 10:00 4 mg ONCE ONE Administration Protocol Medical Decision Making Medical Decision Making [facility] Narrative: 0949 71-year-old male presents status post fall yesterday complaining of right-sided rib pain. Patient on clopidogrel. Denies preceding symptoms to fall. No head strike or loss of consciousness. Physical exam Tenderness to palpation to the left posterior/lateral rib area. No ecchymosis. History and physical exam concerning for rib fractures, unlikely flail chest, pneumothorax, acute respiratory distress. Unlikely intracranial hemorrhage, stroke, posterior stroke. Low suspicion for cervical spine fracture, dislocation or traumatic subluxation. Will rule out traumatic injury to abdomen. Will rule out UTI and cystitis as patient briefly mentioned he noticed hematuria at some point Plan labs, imaging, urine. Differential Diagnosis Differential Diagnoses: The differential diagnosis associated with the presentation includes History and physical exam concerning for rib fractures, unlikely flail chest, pneumothorax, acute respiratory distress. Unlikely intracranial hemorrhage, stroke, posterior stroke. Low suspicion for cervical spine fracture, dislocation or traumatic subluxation. Will rule out traumatic injury to abdomen. Will rule out UTI and cystitis as patient briefly mentioned he noticed hematuria at some point Admission/Observation Consideration of admission/observation: Escalation of care including admission/observation considered possible Lab Data MDM Lab Attestation statement: I reviewed the patient's lab results. 04/16/24 10:25 04/16/24 10:25 Labs: Lab Results 04/16/24 04/16/24 Range/Units 10:25 11:36 WBC 7.2 (4.8-10.8) X10*3/uL RBC 3.89 L (4.60-5.80) X10*6/uL Hgb 12.1 L (14.0-18.0) g/dl Hct 34.1 L (42.0-52.0) % MCV 87.7 (80.0-98.0) fL MCH 31.1 (27.0-33.0) pg MCHC 35.5 (31.0-36.0) g/dl RDW 13.3 (11.0-16.0) % Plt Count 138 L (160-400) X10*3/uL MPV 11.0 (9.4-12.4) fL Immature Gran % (Auto) 0.3 (0.0-0.4) % Neut % (Auto) 71.5 (45-73) % Lymph % (Auto) 13.8 L (20-40) % [place] % (Auto) 9.5 (2-11) % Eos % (Auto) 4.3 H (0-4) % Baso % (Auto) 0.6 (0-2) % Lymph # (Auto) 1.0 L (1.2-4.9) X10*3/uL [place] # (Auto) 0.7 (0.1-1.2) X10*3/uL Eos # (Auto) 0.3 (0.0-0.4) X10*3/uL Baso # (Auto) 0.0 (0.0-0.2) X10*3/uL Abs Immat Gran (auto) 0.02 (0.00-0.03) X10*3/uL Absolute Neuts (auto) 5.2 (2.0-8.3) x10*3/uL Absolute Nucleated RBC 0.000 (0.0-0.012) X10*3/uL Nucleated RBC % (auto) 0.0 (0.0-0.2) /100WBC PT 12.6 (11.1-13.3) SEC INR 1.0 (0.9-1.1) Sodium 130 L (135-145) mmol/L Potassium 3.9 (3.3-5.1) mmol/L Chloride 94 L (96-108) mmol/L Carbon Dioxide 28 (22-29) mmol/L Anion Gap 12 (12-20) BUN 20 H (9-16) mg/dL Creatinine 0.94 (0.5-1.4) mg/dL Estim Creat Clear Calc 60.3 Estimated GFR > 60 Random Glucose 104 (60-115) mg/dL Calcium 9.9 (8.4-10.2) mg/dL Magnesium 2.1 (1.6-2.6) mg/dL Total Bilirubin 0.8 (0.0-1.0) mg/dL AST 26 (5-37) U/L ALT 23 (0-40) U/L Alkaline Phosphatase 67 (39-117) U/L Troponin I High Sens 4.6 (<3.5-35.0) ng/L Total Protein 7.6 (6.5-8.0) g/dL Albumin 4.3 (3.5-5.0) g/dL Urine Color Yellow Urine Appearance Clear Urine pH 7.5 (5.0-9.0) Ur Specific [place] 1.010 (1.005-1.025) Urine Protein Negative (Neg-Trace) mg/dL Urine Glucose (UA) Negative (Negative) mg/dL Urine Ketones Negative (Negative) mg/dL Urine Blood Small (1+) H (Negative) Urine Nitrite Negative (Negative) Ur Leukocyte Esterase Negative (Negative) Urine RBC 6-10 H (0-2) /HPF Urine WBC 0-5 (0-5) /HPF Ur Squamous Epith Cells 0-2 (0-2) /HPF Urine Bacteria None Seen (None Seen) Hyaline Casts 0-2 (0-2) /LPF Independent Interpretation I performed an independent interpretation of an: EKG (Vent. Rate : 059 BPM Atrial Rate : 059 BPM P-R Int : 194 ms QRS Dur : 114 ms QT Int : 402 ms P-R-T Axes : 086 013 041 degrees QTc Int : 397 ms Sinus bradycardia Otherwise normal ECG No previous ECGs available) and CT Scan (CT/CT chest w IV con IMPRESSION: 1. Nondisplaced right posterior-lateral seventh, eighth and ninth rib fractures. No underlying hemopneumothorax or pneumothorax. 2. No other acute post traumatic findings in the chest, abdomen or pelvis. 3. Severe aortoiliac atherosclerosis with near total occlus) Radiology Impression Discussion of test interpretation with radiology: I have reviewed the radiologist's reading. External Record Review External record reviewed: Inpatient record, Office record, Outpatient record, Prior outpatient labs, Prior outpatient radiology, Primary care record and Outside ED record Prescription Management I considered prescription management with: Pain Medication Chronic Conditions Patient?s care impacted by: Hypertension and Other (htn, hld, ) Critical Care Time Critical Care Time Critical Care Time: Yes Total Critical Care Time: 35 Attestation: I attest to this time spent taking care of the patient, obtaining history, physical, reviewing labs, imaging, speaking to my attending, specialist or hospitalist. Discharge Plan Discharge Clinical Impression: Fracture, ribs, Fall, Acute hyponatremia, Thyroid nodule Patient Disposition: [facility] Transfer Details: Dr. Lopez ED --> ED [facility] Prescriptions: No Action fluticasone propionate [Flonase Allergy Relief] 50 mcg/actuation spray,suspension 1 spray intranasal DAILY Qty: 9.9 1RF Rx Instructions: administer into each nostril clopidogrel 75 mg tablet 75 mg PO DAILY Qty: 90 3RF atorvastatin [Lipitor] 40 mg tablet 40 mg PO DAILY Qty: 90 3RF lisinopril [Zestril] 40 mg tablet 40 mg PO DAILY Qty: 90 3RF atenolol [Tenormin] 50 mg tablet 50 mg PO DAILY Qty: 90 3RF triamterene-hydrochlorothiazid 37.5-25 mg capsule 1 cap PO QAM Qty: 90 3RF sildenafil [Viagra] 100 mg tablet 100 mg PO DAILY PRN (Reason: sexual activity) Qty: 30 0RF Rx Instructions: administer 30 minutes to 4 hours before activity Print Language: Afghan
--- NOTE | 2024-04-16 09:50 | ECG_ITS ---
Test Reason : FALL Blood Pressure : / mmHG Vent. Rate : 059 BPM Atrial Rate : 059 BPM P-R Int : 194 ms QRS Dur : 114 ms QT Int : 402 ms P-R-T Axes : 086 013 041 degrees QTc Int : 397 ms Sinus bradycardia Otherwise normal ECG No previous ECGs available Referred By: Brandy Caicedo Electronically Signed By:GARRY GAMA MD
--- NOTE | 2024-04-16 10:26 | PC.NURSE ---
Labs sent as ordered
--- NOTE | 2024-04-16 10:26 | PC.NURSE ---
20G to RAC. Tolerated well.
[2024-04-16 10:32] LABS: MANUAL DIFF FLAG NO
[2024-04-16] MEDS: Lidocaine 4 % Patch ADH..PATCH 1 PATCH TRANSDERMA (10:34)
[2024-04-16] MEDS: Morphine Sulfate 4 MG/ML CARTRIDGE IVPUSH ×2 (10:34→15:51)
--- NOTE | 2024-04-16 10:34 | PC.NURSE ---
Orthostatic VS complete
--- NOTE | 2024-04-16 10:36 | PC.NURSE ---
Pt. medicated per NOV.
[2024-04-16 10:37] LABS: Basophils Percent Auto 0.6 % (0-2); Eosinophils Absolute Auto 0.3 X10*3/uL (0.0-0.4); Eosinophils Percent Auto 4.3 % (0-4); Hematocrit 34.1 % (42.0-52.0); Hemoglobin 12.1 g/dl (14.0-18.0); Imm Gran Abs Auto 0.02 X10*3/uL (0.00-0.03); Imm Gran Pct Auto 0.3 % (0.0-0.4); Lymphocytes Percent Auto 13.8 % (20-40); Mean Corpuscular HGB Conc 35.5 g/dl (31.0-36.0); Mean Corpuscular Hemoglobin 31.1 pg (27.0-33.0); Mean Corpuscular Volume 87.7 fL (80.0-98.0); Monocytes Absolute Auto 0.7 X10*3/uL (0.1-1.2); Monocytes Percent Auto 9.5 % (2-11); Neutrophils Absolute Auto 5.2 x10*3/uL (2.0-8.3); Neutrophils Percent Auto 71.5 % (45-73); Platelet Count 138 X10*3/uL (160-400); Red Blood Count 3.89 X10*6/uL (4.60-5.80); Red Cell Distribution Width 13.3 % (11.0-16.0); White Blood Count 7.2 X10*3/uL (4.8-10.8)
[2024-04-16 10:45] LABS: Prothrombin Time 12.6 SEC (11.1-13.3)
[2024-04-16 11:03] LABS: Alanine Aminotransferase 23 U/L (0-40); Albumin Level 4.3 g/dL (3.5-5.0); Alkaline Phosphatase 67 U/L (39-117); Anion Gap 12 (12-20); Aspartate Amino Transferase 26 U/L (5-37); Bilirubin Total 0.8 mg/dL (0.0-1.0); Blood Urea Nitrogen 20 mg/dL (9-16); Calcium 9.9 mg/dL (8.4-10.2); Carbon Dioxide 28 mmol/L (22-29); Chloride 94 mmol/L (96-108); Creatinine Clr Calc Pharmacy 60.3; Estimated Glomerular Filt Rate > 60; Glucose Random 104 mg/dL (60-115); Magnesium 2.1 mg/dL (1.6-2.6); Potassium 3.9 mmol/L (3.3-5.1); Sodium 130 mmol/L (135-145); Total Protein 7.6 g/dL (6.5-8.0)
[2024-04-16 11:11] LABS: Troponin-I High Sensitivity 4.6 ng/L (<3.5-35.0)
[2024-04-16] MEDS: iohexoL 350 MG/ML 100 ML INFUS..BTL IV (11:22)
[2024-04-16 11:45] LABS: Appearance Urine Clear; Color Urine Yellow; Glucose Urine UA Negative (Negative); Leukocyte Esterase Urine Negative (Negative); Nitrite Urine Negative (Negative); PH 7.5 (5.0-9.0); UMIC TRIGGER UACC YES; Urine Blood Small (1+) (Negative); Urine Ketones Negative (Negative); Urine Protein Negative (Neg-Trace)
[2024-04-16 11:47] LABS: Bacteria Urine None Seen (None Seen); Hyaline Casts Urine 0-2 /LPF (0-2); Squamous Epithelial Cell Urine 0-2 /HPF (0-2); WBC Urine 0-5 /HPF (0-5)
[2024-04-16] MEDS: 0.9 % Sodium Chloride 1,000 ML 999 ML IV (11:57)
--- NOTE | 2024-04-16 17:48 | PC.NURSE ---
[id number] CALLED ON BEHALF OF THIS PT. TO MAYLIN CHARLTON AT [facility].
== END 2024-04-16 17:49 | disposition short-term general hospital (02) ==
PROVIDERS: Physician Assistant; Emergency Provider Student in an Organized Health Care Education/Training Program; PCP Internal Medicine
DX: S22.41XA Multiple fractures of ribs, right side, initial encounter for closed fracture (principal); W10.1XXA Fall (on)(from) sidewalk curb, initial encounter; E87.1 Hypo-osmolality and hyponatremia; E04.1 Nontoxic single thyroid nodule; I10 Essential (primary) hypertension; E78.5 Hyperlipidemia, unspecified; Z87.891 Personal history of nicotine dependence; Y93.01 Activity, walking, marching and hiking; Y92.480 Sidewalk as the place of occurrence of the external cause; Y99.9 Unspecified external cause status; Z79.02 Long term (current) use of antithrombotics/antiplatelets; Z79.899 Other long term (current) drug therapy
CPT/HCPCS: 36415; 70450; 71260; 72125; 74177; 80053; 81001; 83735; 84484; 85025; 85610; 93005; 94010; 96361; 96374; 96376; 99285; J2270; Q9967

== ENCOUNTER → 2024-04-16 09:50 | Outpatient (BNV) | payer OTHER, SELFPAY | PROVIDERS: Emergency Provider Student in an Organized Health Care Education/Training Program; PCP Internal Medicine; Visit Provider Internal Medicine Cardiovascular Disease | DX: R00.1 Bradycardia, unspecified (principal) | CPT/HCPCS: 93010 ==

== ENCOUNTER 2024-04-22 10:11 | Outpatient (AMB) | payer OTHER, SELFPAY ==
[2024-04-22 10:15] VITALS: BP 136/66; PULSE 62; O2SAT 100; BMI 23.6
--- NOTE | 2024-04-22 10:15 | A.OFFPC_ITS ---
Vital Signs 04/22/24 10:15 Height 5 ft 8 in Weight 155 lb BMI 23.6 BP 136/66 Blood Pressure Location Lt brachial Position Sitting Pulse 62 Pulse Source Pulse Oximeter Pulse Oximetry (%) 100 Oxygen Delivery Method Room Air Intake Visit Reasons: Hospital follow up Intake Note: Pt is here today for a Hospital follow up visit. Allergies No Known Allergies [No Known Allergies*] Allergy (Verified 04/22/24 10:17) Tobacco use date assessed: 04/22/24 Fall risk assessment: 1 Fall in past year Last assessed Fall Risk: 04/22/24 Dental Screening Dental Screen Date: 03/04/24 [facility] Hospital follow up HPI Details Patient presents for the follow-up of hospitalization for right lower rib fracture after a mechanical fall. Patient tripped over the curb. He denies any head trauma loss of consciousness palpitations or chest pains. Patient has been taking oxycodone every 6 hours and reports constipation for the last few days. He denies abdominal pain, nausea vomiting and has been passing gas. Patient tried MiraLax yesterday without effect. Hypertension is controlled on current medications [facility] Medical History (Updated 04/22/24 @ 10:47 by Hollie Starks MD) Hyperglycemia Herniated disc Hernia Hyperlipidemia Hypertension Normocytic anemia Surgical History S/P colonoscopic polypectomy Family History Father Pneumonia Mother Diabetes mellitus Sister No problems noted. 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 1. Little interest or pleasure in doing things: not at all 2. Feeling down, depressed, or hopeless: not at all 3. Trouble falling or staying asleep, or sleeping too much: not at all 4. Feeling tired or having little energy: several days 5. Poor appetite or overeating: not at all 6. Feeling bad about yourself - or that you are a failure or have let yourself or your family down: not at all 7. Trouble concentrating on things, such as reading the newspaper or watching television: not at all 8. Moving or speaking so slowly that other people could have noticed. Or the opposite - being so fidgety or restless that you have been moving around a lot more than usual: not at all 9. Thoughts that you would be better off or of hurting yourself in some way: not at all Total score: 1 Depression Screening Interpretation: Negative Depression Screening Done: Yes 25410 - PHQ-9 Billing: Yes Source: Developed by Drs. Efrain Nelson, Kathleen Strong, Matt Mason and colleagues, with an educational jamila from [employer]. Thrive Questionnaire Date Thrive assessed: 04/22/24 I am a: Patient What is your living situation today?: I have a steady place to live Within the past 12 months, did the food you bought not last and you didn't have the money to get more?: I choose not to answer this question Within the past 12 months, did you worry whether your food would run out before you got money to buy more?: I choose not to answer this question Do you have trouble paying for medicines?: I choose not to answer this question Do you have trouble getting transportation to medical appointments?: I choose not to answer this question Do you have trouble paying your heating and electricity bill?: I choose not to answer this question Do you have trouble taking care of your child, family member or friend?: I choose not to answer this question Do you have trouble with day-to-day activities such as bathing, preparing meals, shopping, managing finances, etc.?: I choose not to answer this question Are you currently unemployed and looking for a job?: I choose not to answer this question Are you interested in more education?: I choose not to answer this question Currently or been in a relationship where the following occur: I choose not to answer THRIVE Score: 0 AUDIT C Alcohol Use Questionnaire (AUDIT-C) 1. How often do you have a drink containing alcohol?: Monthly or less 2. How many drinks containing alcohol do you have on a typical day when you are drinking?: 1 or 2 3. How often do you have six or more drinks on one occasion?: Never Total Score: 1 MARLEY-7 AMB Questionnaire MARLEY-7 Date MARLEY - 7 assessed: 04/22/24 Feeling nervous, anxious, or on edge: 0 = Not at all Not being able to stop or control worryin = Not at all Worrying too much about different things: 0 = Not at all Trouble relaxin = Not at all Being so restless that it is hard to sit still: 0 = Not at all Becoming easily annoyed or irritable: 0 = Not at all Feeling afraid as if something awful might happen: 0 = Not at all Total MARLEY-7 score (0-4 normal; 5-9 mild; 10-14 moderate; 15-21 severe): 0 Source: Developed by Drs. Efrain Nelson, Kathleen Strong, Matt Mason and colleagues, with an educational jamila from [employer]. MARLEY-7 Assessment Billing MARLEY-7 Assessment Tool: MARLEY-7 Assessment 57890 Review of Systems Const All systems reviewed & are unremarkable except as noted in HPI and below Eyes Reports no additional complaints Resp Reports no additional complaints GI Reports no additional complaints Reports no additional complaints Physical exam (Primary Care) Vital Signs: Last Vital Signs Pulse 62 04/22/24 10:15 BP 136/66 04/22/24 10:15 Pulse Ox 100 04/22/24 10:15 Oxygen Delivery Method Room Air 04/22/24 10:15 BMI result Body Mass Index 23.6 Tobacco/Smoking Status: Tobacco use Status Tobacco use date assessed 04/22/24 04/22/24 10:21 Patient Tobacco Use Status Former Tobacco user 04/22/24 10:15 e-Cigarette/Vaping Use Never Used 04/22/24 10:15 PHQ-9: PHQ-9 Score PHQ-9: Total score 1 04/22/24 10:21 Depression Screening Interpretation: Negative Thrive Assessment: Date of Thrive Assessment Date Thrive assessed 04/22/24 04/22/24 10:15 Currently or been in a relationship where the following occur: I choose not to answer Const General: no acute distress Neck Neck: Yes supple Resp Effort & Inspection: normal respiratory effort Auscultation: diminished lung sounds Cardio Rhythm: regular rhythm Heart sounds: S1 normal heart sound present and S2 normal heart sound present GI Inspection: Yes normal to inspection Palpation (GI): Soft to palpation Percussion: Yes normal to percussion Auscultation: normal bowel sounds Assessment and Plan Assessment & Plan (1) Hypertension: Comment: Stable Code(s): I10 - Essential (primary) hypertension Plan: Continue current medications (2) Right rib fracture: Code(s): S22.31XA - Fracture of one rib, right side, initial encounter for closed fracture Plan: Supportive care discussed with the patient, He will continue to use lidocaine patches and he completed oxycodone (3) Constipation: Code(s): K59.00 - Constipation, unspecified Plan: Bowel care discussed with the patient. He was advised to take MiraLax 3 times a day for least 2 days, increase fluid intake and fiber. Coding Level of Care Code Est Pt Level 4 (71660) Diagnoses Hypertension I10 Right rib fracture S22.31XA Constipation K59.00 Additional Codes MARLEY-7 Assessment Billing - MARLEY-7 Assessment Tool: MARLEY-7 Assessment 25967 ([id number])
== END 2024-04-22 10:48 | disposition home or self-care (01) ==
PROVIDERS: PCP Internal Medicine; Visit Provider Internal Medicine
DX: I10 Essential (primary) hypertension (principal); S22.31XA Fracture of one rib, right side, initial encounter for closed fracture; K59.00 Constipation, unspecified
CPT/HCPCS: 99214

== ENCOUNTER 2024-05-04 06:01 | Outpatient (REF) | payer OTHER, SELFPAY ==
[2024-05-04 10:31] LABS: MANUAL DIFF FLAG NO
[2024-05-04 10:38] LABS: Basophils Absolute Auto 0.1 X10*3/uL (0.0-0.2); Basophils Percent Auto 0.9 % (0-2); Eosinophils Absolute Auto 0.4 X10*3/uL (0.0-0.4); Eosinophils Percent Auto 7.8 % (0-4); Hematocrit 33.2 % (42.0-52.0); Hemoglobin 11.4 g/dl (14.0-18.0); Imm Gran Abs Auto 0.01 X10*3/uL (0.00-0.03); Imm Gran Pct Auto 0.2 % (0.0-0.4); Lymphocytes Absolute Auto 1.5 X10*3/uL (1.2-4.9); Lymphocytes Percent Auto 27.1 % (20-40); Mean Corpuscular HGB Conc 34.3 g/dl (31.0-36.0); Mean Corpuscular Hemoglobin 30.1 pg (27.0-33.0); Mean Corpuscular Volume 87.6 fL (80.0-98.0); Monocytes Absolute Auto 0.6 X10*3/uL (0.1-1.2); Monocytes Percent Auto 10.7 % (2-11); Neutrophils Percent Auto 53.3 % (45-73); Platelet Count 145 X10*3/uL (160-400); Red Blood Count 3.79 X10*6/uL (4.60-5.80); Red Cell Distribution Width 13.2 % (11.0-16.0); White Blood Count 5.6 X10*3/uL (4.8-10.8)
[2024-05-04 11:05] LABS: Alanine Aminotransferase 24 U/L (0-40); Albumin Level 4.2 g/dL (3.5-5.0); Alkaline Phosphatase 63 U/L (39-117); Anion Gap 13 (12-20); Aspartate Amino Transferase 25 U/L (5-37); Bilirubin Total 0.8 mg/dL (0.0-1.0); Blood Urea Nitrogen 22 mg/dL (9-16); Calcium 9.9 mg/dL (8.4-10.2); Carbon Dioxide 25 mmol/L (22-29); Chloride 98 mmol/L (96-108); Cholesterol 138 mg/dL (<200); Estimated Glomerular Filt Rate > 60; Glucose Fasting 95 mg/dL (60-99); HDL Cholesterol 33 mg/dL (>40); LDL Cholesterol Calculated 85 mg/dL (<100); Sodium 132 mmol/L (135-145); Total Protein 7.4 g/dL (6.5-8.0); Triglycerides 101 mg/dL (<150)
[2024-05-04 11:07] LABS: Estimated Average Glucose 114 mg/dL; Hemoglobin A1c % 5.6 % (<6.0); PSA,Total (Free>4and<10) 3.12 ng/mL (0.00-4.00)
== END 2024-05-04 06:02 | disposition home or self-care (01) ==
LOC: HO.HMGCLDS 06:01
PROVIDERS: PCP Internal Medicine; Visit Provider Internal Medicine
DX: I25.10 Atherosclerotic heart disease of native coronary artery without angina pectoris (principal); I10 Essential (primary) hypertension; E78.5 Hyperlipidemia, unspecified; R73.9 Hyperglycemia, unspecified; Z12.5 Encounter for screening for malignant neoplasm of prostate
CPT/HCPCS: 36415; 80053; 80061; 83036; 84153; 85025

== ENCOUNTER 2024-05-12 11:29 | Outpatient (AMB) | payer OTHER, SELFPAY ==
[2024-05-12 11:30] VITALS: BP 124/64; PULSE 58; O2SAT 97; BMI 22.2
--- NOTE | 2024-05-12 11:30 | MHC.PC.OV ---
Vital Signs 05/12/24 11:30 Height 5 ft 8 in Weight 146 lb BMI 22.2 BP 124/64 Blood Pressure Location Lt brachial Position Sitting Pulse 58 Pulse Source Pulse Oximeter Pulse Oximetry (%) 97 Oxygen Delivery Method Room Air Intake Visit Reasons: Annual PE Intake Note: Pt is here today for PE. Allergies No Known Allergies [No Known Allergies*] Allergy (Verified 05/12/24 11:30) Medication List - Last Reconciled 05/12/24 by Hollie Starks MD atenolol (Tenormin) 50 mg PO DAILY atorvastatin (Lipitor) 40 mg PO DAILY clopidogrel 75 mg PO DAILY fluticasone propionate 50 mcg/actuation (Flonase Allergy Relief) 1 spray intranasal DAILY lisinopril (Zestril) 40 mg PO DAILY sildenafil (Viagra) 100 mg PO DAILY PRN triamterene-hydrochlorothiazid 37.5-25 mg 1 cap PO QAM Tobacco use date assessed: 05/12/24 Dental Screening Dental Screen Date: 03/04/24 HPI Annual PE HPI Details Pt is for PE. PFSH Medical History Hyperglycemia Herniated disc Hernia Hyperlipidemia Hypertension Normocytic anemia Surgical History S/P colonoscopic polypectomy Family History Father Pneumonia Mother Diabetes mellitus Sister No problems noted. 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 Efrain Nelson, Kathleen Strong, Matt Mason and colleagues, with an educational jamila from [employer]. Review of Systems Const All systems reviewed & are unremarkable except as noted in HPI and below Eyes Reports no additional complaints ENT Reports no additional complaints Card Reports no additional complaints Resp Reports no additional complaints GI Reports no additional complaints Reports no additional complaints Physical exam (Primary Care) Vital Signs: Last Vital Signs Pulse 58 05/12/24 11:30 BP 124/64 05/12/24 11:30 Pulse Ox 97 05/12/24 11:30 Oxygen Delivery Method Room Air 05/12/24 11:30 BMI result Body Mass Index 22.2 Tobacco/Smoking Status: Tobacco use Status Tobacco use date assessed 05/12/24 05/12/24 11:31 Patient Tobacco Use Status Former Tobacco user 05/12/24 11:31 e-Cigarette/Vaping Use Never Used 05/12/24 11:31 Thrive Assessment: Date of Thrive Assessment Date Thrive assessed 04/22/24 05/12/24 11:31 Const General: no acute distress HENMT Head: Yes normal to inspection Face and sinus: Yes normal facial exam Mouth: Normal oral and palatal mucosa present Neck Neck: Yes no lymphadenopathy and Yes supple Resp Effort & Inspection: normal respiratory effort Auscultation: clear to auscultation bilaterally Cardio Rhythm: regular rhythm Heart sounds: S1 normal heart sound present and S2 normal heart sound present GI Inspection: Yes normal to inspection Palpation (GI): Soft to palpation Percussion: Yes normal to percussion Auscultation: normal bowel sounds Extrem Other: 1+ PITTING EDEMA BILATERALLY AND CHRONIC VENOUS STASIS Assessment and Plan Assessment & Plan (1) S/P colonoscopic polypectomy: Comment: 04/2019 Dr. 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 Patient will continue fluid restriction if the sodium level remains low Dyazide will be changed to Lasix otherwise patient will return in 6 months with a fasting labs before (3) CAD (coronary artery disease): Comment: silent ischemia. 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 He has FFR positive mid LAD stenosis which is collateralizing the right coronary artery. s/p MICHAEL placement 11/2020 Code(s): I25.10 - Atherosclerotic heart disease of [place] coronary artery without angina pectoris Plan: Follow-up with the Cardiology (4) Hyperlipidemia: Comment: Patient could not tolerate 80 mg of atorvastatin Code(s): E78.5 - Hyperlipidemia, unspecified Plan: Continue statin (5) Hypertension: Comment: Stable Code(s): I10 - Essential (primary) hypertension Plan: Continue current medications (6) Anemia: Comment: [place] [facility] [place] Code(s): D64.9 - Anemia, unspecified Orders: Orders Lipid Panel 6 Months E78.5 - Hyperlipidemia, unspecified, E87.1 - Hypo-osmolality and hyponatremia, I10 - Essential (primary) hypertension, I25.10 - Atherosclerotic heart disease of [place] coronary artery without angina pectoris IRON PROFILE 3 Months D64.9 - Anemia, unspecified Vitamin B12 and Folate 3 Months D64.9 - Anemia, unspecified Basic Metabolic Panel 3 Months E87.1 - Hypo-osmolality and hyponatremia Comprehensive [place]. Panel Fast 6 Months E78.5 - Hyperlipidemia, unspecified, E87.1 - Hypo-osmolality and hyponatremia, I10 - Essential (primary) hypertension, I25.10 - Atherosclerotic heart disease of [place] coronary artery without angina pectoris Complete Blood Count Auto Diff 6 Months E78.5 - Hyperlipidemia, unspecified, E87.1 - Hypo-osmolality and hyponatremia, I10 - Essential (primary) hypertension, I25.10 - Atherosclerotic heart disease of [place] coronary artery without angina pectoris Referrals Gastroenterology Referral Z98.890 - Other specified postprocedural states Coding Level of Care Code Est Pt Prev Care >65y(00417) Diagnoses S/P colonoscopic polypectomy Z98.890 Hyponatremia E87.1 CAD (coronary artery disease) I25.10 Hyperlipidemia E78.5 Hypertension I10 Anemia D64.9
== END 2024-05-12 12:43 | disposition home or self-care (01) ==
PROVIDERS: PCP Internal Medicine; Visit Provider Internal Medicine
DX: Z00.00 Encounter for general adult medical examination without abnormal findings (principal); E87.1 Hypo-osmolality and hyponatremia; I25.10 Atherosclerotic heart disease of native coronary artery without angina pectoris; E78.5 Hyperlipidemia, unspecified; I10 Essential (primary) hypertension; D64.9 Anemia, unspecified; Z23 Encounter for immunization
CPT/HCPCS: 90471; 90677; 99397

== ENCOUNTER 2024-05-14 10:53 | Outpatient (AMB) | payer OTHER, SELFPAY ==
--- NOTE | 2024-05-14 10:57 | MHC.OFFVIS ---
Vital Signs 05/14/24 11:45 Height 5 ft 8 in Weight 146 lb BMI 22.2 Intake Visit Reasons: OV - Left shoulder pain follow up Intake Note: Hendricks a 79 year old male who presents today for a follow up of left shoulder, last injection on 11/14/23. Patient reports last injection provided him relief until recently. He noticed his pain returned after a fall landing on his right side causing rib fractures. He would like to repeat injection. Allergies No Known Allergies [No Known Allergies*] Allergy (Verified 05/14/24 11:44) Medication List - Last Reconciled 05/14/24 by Kalia Izaguirre PA-C atenolol (Tenormin) 50 mg PO DAILY atorvastatin (Lipitor) 40 mg PO DAILY clopidogrel 75 mg PO DAILY fluticasone propionate 50 mcg/actuation (Flonase Allergy Relief) 1 spray intranasal DAILY lisinopril (Zestril) 40 mg PO DAILY sildenafil (Viagra) 100 mg PO DAILY PRN triamterene-hydrochlorothiazid 37.5-25 mg 1 cap PO QAM HPI HPI OV - Left shoulder pain follow up: Details: 79-year-old male who returns to the office today for a follow-up of left shoulder pain. He reports his pain returned after a fall landing on his right-side causing rib fractures. He had his last injection on 11/14/23 which provided him relief until recently. He would like to repeat the injection. He does not have a history of diabetes. [facility], [facility] Medical History (Updated 05/12/24 @ 12:40 by Hollie Starks MD) Anemia Hyperglycemia Herniated disc Hernia Hyperlipidemia Hypertension Normocytic anemia Surgical History S/P colonoscopic polypectomy Family History Father Pneumonia Mother Diabetes mellitus Sister No problems noted. 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 Tenderness over the bicipital groove and along the deltoid region of the shoulder. Forward flexion to 175, external rotation to 90, internal rotation to S1. 5/5 RTC strength. Negative Gonzalez and cross body abduction. NVI. Office Procedures Joint Injection/Aspiration Joint Injection/Aspiration Primary Site: left shoulder Prep: site was prepped using aseptic technique, ethochloride spray was applied and injection warnings given Injected: 80 mg of, DepoMedrol, with 8 mL of, 1% plain lidocaine and in the subcromial space Approach Used: posterolateral Procedure: The patient tolerated the procedure well and there was some relief with the local anesthesia Coding 32916 - Glenohumeral/Tronchanteric Bursa/Intraarticular Procedure code (CPT) selection complete Assessment & Plan Assessment & Plan (1) Osteoarthritis of left shoulder: Code(s): M19.012 - Primary osteoarthritis, left shoulder Category: Medical Qualifiers: Osteoarthritis type: primary Qualified Code(s): M19.012 - Primary osteoarthritis, left shoulder Plan We discussed options today, which include steroid injection. The patient did consent to move forward with the left shoulder injection, which was tolerated well. I recommended rest, ice, and elevation and OTC anti-inflammatories as needed for discomfort. If symptoms persist or worsen over the next 6-8 weeks, patient will contact the office, otherwise follow-up as needed. ? Patient Instructions: Scribed for Kalia Izaguirre PA-C, by [employer], on 05/14/2024 at 11:00 AM EST.? I, Kalia Izaguirre PA-C, have personally reviewed and agree with the information entered by the scribe. Coding Level of Care Code Est Pt Level 3 (18676) Complex EM visit Add On G2211 Diagnoses Primary osteoarthritis of left shoulder M19.012 Osteoarthritis type: primary CPT Codes Coding - Joint 7: 72787 - Glenohumeral/Tronchanteric Bursa/Intraarticular ([id number])
[2024-05-14 11:45] VITALS: BMI 22.2
== END 2024-05-14 12:17 | disposition home or self-care (01) ==
PROVIDERS: PCP Internal Medicine; Visit Provider Physician Assistant
DX: M19.012 Primary osteoarthritis, left shoulder (principal)
CPT/HCPCS: 20610; 99213

== ENCOUNTER → 2024-05-14 10:53 | Outpatient (BNVA) | payer OTHER, SELFPAY | PROVIDERS: PCP Internal Medicine; Visit Provider Physician Assistant | DX: M19.012 Primary osteoarthritis, left shoulder (principal) | CPT/HCPCS: 20610; J1010 ==

== ENCOUNTER 2024-05-24 15:18 | Outpatient (AMB) | payer OTHER, SELFPAY ==
[2024-05-24 15:22] VITALS: BP 120/60; PULSE 60; BMI 22.2
--- NOTE | 2024-05-24 15:22 | A.OFFVIS_ITS ---
Vital Signs 05/24/24 15:22 Height 5 ft 8 in Weight 145 lb 15.136 oz BMI 22.2 BP 120/60 Blood Pressure Location Lt brachial Position Sitting Pulse 60 Pulse Source Pulse Oximeter Intake Visit Reasons: 1Y follow up Family Caseworker Required: No Accompanied by: Self / Same As Patient Allergies No Known Allergies [No Known Allergies*] Allergy (Verified 05/14/24 11:44) Medication List - Last Reconciled 05/24/24 by Klaus Casillas MD atenolol (Tenormin) 50 mg PO DAILY atorvastatin (Lipitor) 40 mg PO DAILY clopidogrel 75 mg PO DAILY fluticasone propionate 50 mcg/actuation (Flonase Allergy Relief) 1 spray intranasal DAILY lisinopril (Zestril) 40 mg PO DAILY sildenafil (Viagra) 100 mg PO DAILY PRN triamterene-hydrochlorothiazid 37.5-25 mg 1 cap PO QAM HPI Comments Details: 79-year-old gentleman here for follow-up. He has background history of known coronary artery disease with occluded right coronary artery and severe LAD stenosis which was FFR positive. He was taken for PCI to LAD. He had right radial artery dissection. He is asymptomatic. No bleeding issues. He has been following Mediterranean diet and has lost 20 pounds. 05/14/2023: He returns for follow-up. He has been doing well. He continues to work 40 hours per week. No chest discomfort shortness of breath. He had some shoulder injury and is asking whether he can use NSAIDs. I have advised him to use them as needed and not regularly specially not multiple doses in a day. He has been taking aspirin Plavix since his PCI. 05/24/2024: He is here for follow-up. Continues to be asymptomatic. Taking medications regularly. Blood pressure is well controlled. [facility] Medical History (Updated 05/12/24 @ 12:40 by Hollie Starks MD) Anemia Hyperglycemia Herniated disc Hernia Hyperlipidemia Hypertension Normocytic anemia Surgical History S/P colonoscopic polypectomy Family History Father Pneumonia Mother Diabetes mellitus Sister No problems noted. 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 Cognitive needs: No Hearing needs: Yes Vision needs: No Review of Systems Const Denies chills, Denies fatigue, Denies fever(s), Denies frequent falls, Denies weakness, Denies weight gain and Denies weight loss ENT Denies dizziness Card Denies chest pain, Denies leg edema, Denies lightheadedness, Denies palpitations, Denies dyspnea and Denies dyspnea on exertion Resp Denies cough, Denies dyspnea and Denies dyspnea on exertion GI Denies hematochezia Musc Denies abnormal gait, Denies muscle weakness, Denies numbness, Denies radiating pain into limb and Denies tingling Neuro Denies abnormal gait, Denies dizziness, Denies frequent falls, Denies numbness, Denies tingling and Denies weakness Endo Denies fatigue and Denies palpitations Physical Exam Vital Signs: Last Vital Signs Pulse 60 05/24/24 15:22 BP 120/60 05/24/24 15:22 BMI result Body Mass Index 22.2 GENERAL APPEARANCE: in no acute distress, well developed, well nourished. NECK/THYROID: no carotid bruit, no jugular venous distention. SKIN: no suspicious lesions, warm and dry. HEART: no murmurs, regular rate and rhythm, S1, S2 normal. LUNGS: clear to auscultation bilaterally. ABDOMEN: normal, bowel sounds present, soft, nontender, nondistended. EXTREMITIES: no clubbing, cyanosis, or edema. PERIPHERAL PULSES: equal. NEUROLOGIC: nonfocal, alert and oriented. PSYCH: mood/affect full range. Assessment & Plan Assessment & Plan (1) Hypertension: Comment: Stable Code(s): I10 - Essential (primary) hypertension Category: Medical (2) CAD (coronary artery disease): Comment: silent ischemia. 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 He has FFR positive mid LAD stenosis which is collateralizing the right coronary artery. s/p MICHAEL placement 11/2020 Code(s): I25.10 - Atherosclerotic heart disease of [place] coronary artery without angina pectoris Category: Medical Plan Pleasant 79 year gentleman who is here for follow-up. 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 He had a drug-eluting stent placed to LAD in 2020. He has done well since then. On Plavix monotherapy at this point. Blood pressure is well controlled. He will see us back in 6 months. Thank you for allowing me to participate in the care of your patient. Please feel free to contact me if you have any questions. Medications: Refilled clopidogrel 75 mg PO DAILY 90 tabs 3RF Coding Level of Care Code Est Pt Level 4 (62310) Diagnoses Hypertension I10 CAD (coronary artery disease) I25.10
== END 2024-05-24 15:44 | disposition home or self-care (01) ==
PROVIDERS: PCP Internal Medicine; Visit Provider Internal Medicine Cardiovascular Disease
DX: I10 Essential (primary) hypertension (principal); I25.10 Atherosclerotic heart disease of native coronary artery without angina pectoris
CPT/HCPCS: 99214

== ENCOUNTER → 2024-05-24 15:18 | Outpatient (BNVA) | payer OTHER, SELFPAY | PROVIDERS: PCP Internal Medicine; Visit Provider Internal Medicine Cardiovascular Disease ==

== ENCOUNTER 2024-07-20 16:03 | Outpatient (REF) | payer OTHER, SELFPAY ==
[2024-07-20 17:34] LABS: Anion Gap 10 (12-20); Blood Urea Nitrogen 27 mg/dL (9-16); Calcium 9.1 mg/dL (8.4-10.2); Carbon Dioxide 28 mmol/L (22-29); Chloride 101 mmol/L (96-108); Estimated Glomerular Filt Rate 52; Glucose Random 94 mg/dL (60-115); Iron 83 mcg/dL (45-160); Percent Iron Saturation 31 % (15-50); Potassium 4.4 mmol/L (3.3-5.1); Sodium 135 mmol/L (135-145); Total Iron Binding Capacity 270 mcg/dL (228-428); Unsaturated Iron Binding 187 ug/dL
[2024-07-20 18:10] LABS: Folate 15.9 ng/mL (> or = 4.0); Vitamin B12 563 pg/mL (200-900)
[2024-07-21 02:40] LABS: CT PCR NOT DETECTED (Not Detect.); NG PCR NOT DETECTED (Not Detect.)
[2024-07-21 08:01] LABS: Syphilis Screen Nonreactive (Nonreactive)
[2024-07-21 08:21] LABS: HIV AB/AG Nonreactive (Nonreactive); HIV Num 1 0.09 S/CO (0.00-0.99)
== END 2024-07-20 16:04 | disposition home or self-care (01) ==
LOC: HO.LAB 16:03
PROVIDERS: PCP Internal Medicine; Visit Provider Internal Medicine
DX: E87.1 Hypo-osmolality and hyponatremia (principal); D64.9 Anemia, unspecified; A64 Unspecified sexually transmitted disease
CPT/HCPCS: 80048; 82607; 82746; 83540; 86780; 87389; 87491; 87591

== ENCOUNTER 2024-08-13 09:43 | Outpatient (AMB) | payer OTHER, SELFPAY ==
--- NOTE | 2024-08-13 09:46 | A.OFFVIS_ITS ---
Vital Signs 08/13/24 09:59 Height 5 ft 8 in Weight 145 lb BMI 22.0 Intake Visit Reasons: Inj-left shoulder inj-last 05/14/24 Limited ROM Intake Note: Zander a 79 year old male who presents today for a left shoulder injection. Patient reports injection on 05/14/24 provided him with relief for about a month. States having limited ROM. He is requesting to repeat injection. Allergies No Known Allergies [No Known Allergies*] Allergy (Verified 08/13/24 09:59) Medication List - Last Reconciled 08/13/24 by Kalia Izaguirre PA-C atenolol (Tenormin) 50 mg PO DAILY atorvastatin (Lipitor) 40 mg PO DAILY clopidogrel 75 mg PO DAILY fluticasone propionate 50 mcg/actuation (Flonase Allergy Relief) 1 spray intranasal DAILY lisinopril (Zestril) 40 mg PO DAILY sildenafil (Viagra) 100 mg PO DAILY PRN triamterene-hydrochlorothiazid 37.5-25 mg 1 cap PO QAM HPI HPI Inj-left shoulder inj-last 05/14/24 Limited ROM: Details: 79-year-old male who returns to the office today for a follow-up of left shoulder pain. He continues to have pain and limited ROM in his shoulder. He had his last injection on 05/14/24 which provided him relief for about a month. He would like to repeat the injection. [facility] Medical History (Updated 07/19/24 @ 14:54 by Hollie Starks MD) Anemia Hyperglycemia Herniated disc Hernia Hyperlipidemia Hypertension Normocytic anemia Surgical History S/P colonoscopic polypectomy Family History Father Pneumonia Mother Diabetes mellitus Sister No problems noted. 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 Tenderness over the bicipital groove and along the deltoid region of the shoulder. Forward flexion to 175, external rotation to 90, internal rotation to S1. 5/5 RTC strength. Negative Gonzalez and cross body abduction. NVI. ? Office Procedures AMB Joint Injection/Aspiration Joint Injection/Aspiration Primary Site: left shoulder Prep: site was prepped using aseptic technique, ethochloride spray was applied and injection warnings given Injected: 80 mg of, DepoMedrol, with 8 mL of, 1% plain lidocaine and in the subcromial space Approach Used: posterolateral Procedure: The patient tolerated the procedure well and there was some relief with the local anesthesia Coding 54977 - Glenohumeral/Tronchanteric Bursa/Intraarticular Procedure code (CPT) selection complete Assessment & Plan Assessment & Plan (1) Osteoarthritis of left shoulder: Code(s): M19.012 - Primary osteoarthritis, left shoulder Category: Medical Qualifiers: Osteoarthritis type: primary Qualified Code(s): M19.012 - Primary osteoarthritis, left shoulder Plan We discussed options today, which include steroid injection. The patient did consent to move forward with the left shoulder injection, which was tolerated well. I recommended rest, ice, and elevation and OTC anti-inflammatories as needed for discomfort. If symptoms persist or worsens over the next 6-8 weeks, patient will contact the office, otherwise follow-up as needed. Patient Instructions: Scribed for Kalia Izaguirre PA-C, by Duc Chamberlain medical assistant per diem, on 08/13/2024 at 9:45 AM EST.? I, Kalia Izaguirre PA-C, have personally reviewed and agree with the information entered by the scribe. Coding Level of Care Code Est Pt Level 3 (40113) Complex EM visit Add On G2211 Diagnoses Primary osteoarthritis of left shoulder M19.012 Osteoarthritis type: primary CPT Codes Coding - Joint 7: 91303 - Glenohumeral/Tronchanteric Bursa/Intraarticular ([id number])
[2024-08-13 09:59] VITALS: BMI 22.0
--- OUTSIDE RECORDS SUMMARY | 2024-08-18 07:06 | XMS_ITS ---
Author Name [facility] [facility] [place] [facility] [place] [facility] [place] Address [address] [place] [address] Care Team Providers Care Regional Hr Manager Name Role Phone DOUG CONTRERAS Primary Care Provider Unavail able LADAN AGUIAR Unavailable Unavailable JOSE THAPA Unavailable Unavailable Insurance Providers: All historical and current Section Date Range: From patient's date of to the date document was created. This section includes the names of all active insurance providers for the patient. Insurance Provider Type of Coverage Plan Name Start of Policy Coverage End of Policy Coverage Group Number Member ID Insurance Provider's Telephone Number Policy Anthony's Name Patient's Relationship to Policy Anthony [facility] [employer] [facility] Jul 09, 2012 [id number] LAYNE SMART PATIENT MEDICARE (R) MEDICARE (M) PART A Dec 07, 2010 PART A [id number] LAYNE SMART PATIENT Selected Encounter This section includes the information on record at [place] for the Encounter. Date/Time Encounter Type Encounter Description Reason Provider Source Apr 27, 2024 09:00 AM HEARING AID REPAIR/MODIFYING AUDIOLOGY ICD-10-CM Z46.1 Encounter for fitting and adjustment of hearing aid TERE FISCHER Encounter Template Text not used by [facility] Assessments - Encounter Diagnoses This section includes the primary and secondary diagnoses documented for the Encounter. Date/Time Primary/Secondary Diagnosis Diagnosis Name Provider Source Apr 27, 2024 09:24 AM PRIMARY Encounter for fitting and adjustment of hearing aid RAS CASTANON Errol FAHEEM [facility] Apr 27, 2024 09:24 AM SECONDARY Sensorineural hearing loss, bilateral KENNYRayaRAS [facility] Social History: Smoking Status (Most current) and Tobacco Use (All prior to encounter date) This section includes the most current, and the historical, smoking and tobacco- related health factors from the [place] facility where the Encounter took place. Current Smoking Status This section includes the most current smoking, or tobacco-related health factor, from the [place] facility where the Encounter took place. Date/Time Current Smoking Status Comment Facil ity Dec 30, 2017 02:22 PM QUIT TOBACCO USE > 7 YEARS AGO [facility] Tobacco Use History This section includes a history of the smoking, or tobacco-related health factors, that were collected on or before the date of the Encounter. The data comes from the [place] facility where the Encounter took place. Date/Time Smoking Status/Tobac co Use Comment Facility Nov 12, 2016 02:58 PM QUIT TOBACCO USE > 7 YEARS AGO [facility] Sep 14, 2015 04:22 PM QUIT TOBACCO USE > 7 YEARS AGO stopped in the 's [facility] Aug 05, 2005 03:05 PM HISTORY OF SMOKING Smoke free since 1986 [facility] Jun 27, 2004 03:51 PM HISTORY OF SMOKING smoke-free since 1987. [facility] Jul 13, 2003 03:26 PM HISTORY OF SMOKING Quit in 1983 [facility] Jan 05, 2002 02:30 PM QUIT TOBACCO USE > 7 YEARS AGO [facility] Encounter Notes: All associated encounter notes This section contains the clinical notes associated to the Encounter. Date/Time Encounter Note(s) Provider Source Apr 27, 2024 07:34 AM AUDIOLOGY NOTE: LOCAL TITLE: AUDIOLOGY HEALTH COMMUNICATIONS ELECTRICIAN SUPERVISOR STANDARD TITLE: AUDIOLOGY NOTE DATE OF NOTE: APR 27, 2024@07:34 ENTRY DATE: APR 27, 2024@07:34:36 AUTHOR: SCOTT CASTANON COSIGNER: TERE FISCHER URGENCY: STATUS: COMPLETED April 27, 2024 History/Background: [place] was seen for a hearing aid follow up, unaccompanied. scheduled today's appointment reporting his left earmold is not staying in his ear. Dim[place] also reported his back up hearing aid is not working. Hearing aids: Prism Microwave Evolv AI BTEs Serial Numbers: [id number] Battery size: Rechargeable Date Issued: 02/13/2022 AND Hearing aids: Prism Microwave 13Z Series i110 BTEs Serial Numbers: [id number] Battery size: 13 Date Issued: 11/04/2014 Hearing aid check: Both hearing aids were cleaned and checked. Replaced size 3 thin tube with a size 4 thin tube. [place] reported better fit. Right Z series is confirmed , no power on audibles or amplification heard after battery was replaced. The right Z Series will be sent to television repair teacher for repair and will be mailed directly to via [facility]. Otoscopy: Clear canal left ear, non-occluding cerumen deep in right ear canal. Tympanometry revealed a type A tympanogram. Plan: will follow up as needed. /luly/ SCOTT CASTANON Audiology Health Bone Drier Operator Signed: 04/27/2024 10:20 /luly/ TERE Agustin, [facility]-A CHIEF, AUDIOLOGY/QUILL PICKING MACHINE OPERATOR Cosigned: 04/27/2024 11:02 SCOTT CASTANON CNTL [facility]
--- OUTSIDE RECORDS SUMMARY | 2024-08-18 07:06 | XMS_ITS ---
Author Name [facility] [place] [facility] [place] Address [address] [place] [address] Care Team Providers Care Publisher Assistant Name Role Phone DOUG CONTRERAS Primary Care [...] Anthony's Name Patient's Relationship to Policy Anthony [facility] [employer] [employer] TE[employer] KANCHAN Jul 09, 2012 [id number] LAYNE SMART PATIENT MEDICARE (R) MEDICARE (M) PART A Dec 07, 2010 PART A [id number] LAYNE SMART PATIENT Selected Encounter This section includes the information on record at [place] for the Encounter. Date/Time Encounter Type Encounter Description Reason Provider Source Mar 03, 2024 02:30 PM HEARING AID REPAIR/MODIFYING AUDIOLOGY ICD-10-CM Z46.1 Encounter for fitting and adjustment of hearing aid TERE FISCHER Encounter Template Text not used by [facility] Assessments - Encounter Diagnoses This section includes the primary and secondary diagnoses documented for the Encounter. Date/Time Primary/Secondary Diagnosis Diagnosis Name Provider Source Mar 03, 2024 02:56 PM PRIMARY Encounter for fitting and adjustment of hearing aid RAS CASTANON [facility] Mar 03, 2024 02:56 PM SECONDARY Sensorineural hearing loss, bilateral RAS CASTANON [facility] Plan of Treatment: Future Appointments (+ 6 months) and Future Tests (+/- 45 days) The Plan of Treatment section includes future care activities for the patient from all [place] [facility] [place]. This section includes future appointments and future orders which are active, pending or scheduled. Future Appointments This section includes appointments that were scheduled to occur 6 months from the date of the Encounter, up to a maximum of 20 appointments. The data comes from all [place] treatment facilities. Appointment Date/Time Appointment Type Appointme nt Facility Name Apr 27, 2024 09:00 AM AMBULATORY - REHAB MEDICIN E [facility] Social History: Smoking Status (Most current) and Tobacco Use (All prior to encounter date) This section includes the most current, and the historical, smoking and tobacco- related health factors from the [place] facility where the Encounter took place. Current Smoking Status This section includes the most current smoking, or tobacco-related health factor, from the [place] facility where the Encounter took place. Date/Time Current Smoking Status Comment [facility] Dec 30, 2017 02:22 PM QUIT TOBACCO USE > 7 YEARS AGO [facility] Tobacco Use History This section includes a history of the smoking, or tobacco-related health factors, that were collected on or before the date of the Encounter. The data comes from the [place] facility where the Encounter took place. Date/Time Smoking Status/Tobac co Use Comment Facility Nov 12, 2016 02:58 PM QUIT TOBACCO USE > 7 YEARS AGO [facility] Sep 14, 2015 04:22 PM QUIT TOBACCO USE > 7 YEARS AGO stopped in the 's [facility] Aug 05, 2005 03:05 PM HISTORY OF SMOKING Smoke free since 1986 [facility] Jun 27, 2004 03:51 PM HISTORY OF SMOKING smoke-free since 1987. [facility] Jul 13, 2003 03:26 PM HISTORY OF SMOKING Quit in 1983 [facility] Jan 05, 2002 02:30 PM QUIT TOBACCO USE > 7 YEARS AGO [facility] Encounter Notes: All associated encounter notes This section contains the clinical notes associated to the Encounter. Date/Time Encounter Note(s) Provider Source Mar 03, 2024 08:04 AM AUDIOLOGY NOTE: LOCAL TITLE: AUDIOLOGY [facility] STANDARD TITLE: AUDIOLOGY NOTE DATE OF NOTE: MAR 03, 2024@08:04 ENTRY DATE: MAR 03, 2024@08:04:43 AUTHOR: SCOTT CASTANON COSIGNER: TERE FISCHER URGENCY: STATUS: COMPLETED March 03, 2024 History/Background: [place] was seen for a hearing aid follow up, unaccompanied. scheduled today's appointment reporting his left hearing aid is not working. stated he sent his 2015 Z Series out for repair and since he received them back they have been loud and giving feedback Hearing aids: Rocio Evolv AI BTEs Serial Numbers: [id number] Battery size: Rechargeable Date Issued: 02/13/2022 AND Hearing aids: Rocio 13Z Series i110 BTEs Serial Numbers: [id number] Battery size: 13 Date Issued: 11/04/2014 Hearing aid check: Both hearing aids were cleaned and checked. Replaced size 3 thin tubes and aries covers on all 4 hearing aids. Biologic check was good for EVOLV aids. Z Series were tinny with high pitches. Z Series were connected to [email or web address] and 03/02/2015 settings were restored to hearing aids. Listening inspection was good. Otoscopy: Clear canal left ear, nearly occluding cerumen right ear. Advised to contact pcp team for cerumen removal. Battery supply was ordered per Veterans request. Plan: will follow up as needed. Suicide Screen: C-SSRS Screening [place]-Suicide Severity Rating Scale (C-SSRS Screener) 1. Over the past month, have you wished you were or wished you could go to sleep and not wake up? No 2. Over the past month, have you had any actual thoughts of killing yourself? No 3. Over the past month, have you been thinking about how you might do this? Response not required due to responses to other questions. 4. Over the past month, have you had these thoughts and had some intention of acting on them? Response not required due to responses to other questions. 5. Over the past month, have you started to work out or worked out the details of how to kill yourself? Response not required due to responses to other questions. 6. If yes, at any time in the past month did you intend to carry out this plan? Response not required due to responses to other questions. 7. In your lifetime, have you ever done anything, started to do anything, or prepared to do anything to end your life (for example, collected pills, obtained a gun, gave away valuables, went to the roof but didn't jump)? No 8. If YES, was this within the past 3 months? Response not required due to responses to other questions. /luly/ SCOTT CASTANON Audiology Health Access Service Representative Signed: 03/03/2024 14:58 /luly/ TERE Agustin, JOSE JUAN-A CHIEF, AUDIOLOGY/SOCIAL MEDIA MARKETING SPECIALIST Cosigned: 03/03/2024 15:07 SCOTT CASTANON [facility]
--- OUTSIDE RECORDS SUMMARY | 2024-08-18 07:06 | XMS_ITS | Continuity of Care Document ---
Author Name [facility] Organization [facility] Care Team Providers Care Radio Station Operator Name Role Phone [facility] Unavailable Unavailable Problems Combined list of problems from Department of Defense and Veterans Affairs facilities. It does not include entries that were removed or entered in error. Problem Status Onset Date Problem Type Date of Resolution Comments Source HEARING LOSS NOS Active Condition [facility] [place] HYPERLIPIDEMIA NEC/NOS Active Condition [facility] [place] HYPERTENSION NOS Active Condition [facility] Diagnosis: ICD-10-CM Z46.1 Encounter for fitting and adjustment of hearing aid [facility] [place] [facility] Medications Combined list of outpatient medications from Department of Defense and Veterans Affairs facilities.Medications provided include 1) outpatient medications from the last 15 months, and 2) patient-reported medications. Medication Details Route Status Patient Instructions Prescription Expires Prescription Number Last Dispense Date Ordering Provider Order Date Order Qty Source ATENOLOL 50MG TAB TAKE ONE TABLET BY MOUTH EVERY MORNING ORAL ACTIVE DOUG CONTRERAS [facility] HYDROCHLORO THIAZIDE 50MG/TRIAMT ERENE 75MG TAB TAKE ONE TABLET BY MOUTH EVERY MORNING ORAL ACTIVE [facility] IBUPROFEN TAB TAKE BY MOUTH NEEDED ORAL ACTIVE [facility] LISINOPRIL 40MG TAB TAKE ONE TABLET BY MOUTH DAILY ORAL ACTIVE [facility] SIMVASTATIN 40MG TAB TAKE ONE-HALF TABLET BY MOUTH DAILY [facility] Immunizations Combined list of available immunizations from the Department of Defense and Veterans Affairs facilities. Immunization Series Date Given Administered By Site Reaction Lot Number CVX Code Drug Rehab Director Status Comments Source COVID-19 (MODERNA), MRNA, LNP-S, PF, 100 MCG/0.5 ML DOSE 2 2020 207 complet ed MOD; [id number]; 1 [facility] COVID-19 (MODERNA), MRNA, LNP-S, PF, 100 MCG/0.5 ML DOSE 1 2020 207 complet ed MOD; [id number]; 1 [facility] INFLUENZA, INJECTABLE, MDCK, PRESERVATIVE FREE, QUADRIVALENT 2018 171 complet ed Partner: [facility]. Administe red by: [facility] Clinician (NPI=Not Provided) . Partner 6 Lot#: [id number] Mfr: SEQIRUS [facility] PNEUMOCOCCAL CONJUGATE PCV 13 2017 133 complet ed [facility] INFLUENZA, SEASONAL, INJECTABLE 2016 141 complet ed [facility] FLU,3 YRS (HISTORICAL) 2016 88 complet ed [facility] DTAP 2015 20 complet ed Site: Right Deltoid [facility] DTAP, UNSPECIFIED FORMULATION 2015 107 complet ed [facility] FLU,3 YRS (HISTORICAL) 2015 88 complet ed Site: Left Deltoid [facility] FLU,3 YRS (HISTORICAL) 2013 88 complet ed outside provider [facility] FLU,3 YRS (HISTORICAL) 2005 MOIRA YOST 88 complet ed [facility] FLU,3 YRS (HISTORICAL) 2004 CECILIA CURRY 88 complet ed [facility] FLU,3 YRS (HISTORICAL) 2003 GREG MCKENZIE 88 complet ed [facility] FLU,3 YRS (HISTORICAL) 2002 88 complet ed [facility] Encounters Combined list of: 1) Encounters from Department of Veterans Affairs facilities going back up to thelast 18 months. 2) Encounters from the Department of Defense facilities going back up to 280 months. Location Location Details Encounter Type Encounter Number Reason For Visit Attending Provider ADM Date DC Date Status Disposition Source [facility] [place] [facility] Outpatient Encounter [id number] 09/06 [facility] [place] [facility] [place] [facility] HEARING AID REPAIR/MOD IFYING [id number] Diagnos is: ICD-10- CM Z46.1 Encount er for fitting and adjustm ent of hearing aid<br/ > AALIYAH,KATIE L 03/03 [facility] [place] [facility] [place] [facility] HEARING AID REPAIR/MOD IFYING [id number] Diagnos is: ICD-10- CM Z46.1 Encount er for fitting and adjustm ent of hearing aid<br/ > AALIYAH,KATIE L 04/27 [facility] [place] [facility] [facility] Social History Combined list of available smoking, tobacco, and other social history from Department of Defense and Veterans Affairs facilities. Social History Type Response Date Comment Source Tobacco smoking status NHIS QUIT TOBACCO USE > 7 YEARS AGO 12/30/2017 [facility] [place] [facility] History of tobacco use QUIT TOBACCO USE > 7 YEARS AGO 11/12/2016 [facility] [place] [facility] History of tobacco use QUIT TOBACCO USE > 7 YEARS AGO 09/14/2015 stopped in the 80's [facility] [place] [facility] History of tobacco use HISTORY OF SMOKING 08/05/2005 Smoke free since 1986 [facility] [place] [facility] History of tobacco use HISTORY OF SMOKING 06/27/2004 smoke-free since 1987. [facility] [place] [facility] History of tobacco use HISTORY OF SMOKING 07/13/2003 Quit in 1983 [facility] [place] [facility] History of tobacco use QUIT TOBACCO USE > 7 YEARS AGO 01/05/2002 [facility]
== END 2024-08-13 10:38 | disposition home or self-care (01) ==
PROVIDERS: PCP Internal Medicine; Visit Provider Physician Assistant
DX: M19.012 Primary osteoarthritis, left shoulder (principal)
CPT/HCPCS: 20610; 99213

== ENCOUNTER → 2024-08-13 09:43 | Outpatient (BNVA) | payer OTHER, SELFPAY | PROVIDERS: PCP Internal Medicine; Visit Provider Physician Assistant | DX: M19.012 Primary osteoarthritis, left shoulder (principal) | CPT/HCPCS: 20610; J1010; J2003 ==

== ENCOUNTER 2024-09-17 16:06 | Outpatient (REF) | payer OTHER, SELFPAY ==
--- OUTSIDE RECORDS SUMMARY | 2024-09-17 16:09 | XMS_ITS | Continuity of Care Document ---
Author Name [facility] Organization [facility] Care Team Providers Care Wallpaper Hanger Name Role Phone [facility] Unavailable Unavailable Problems Combined list of problems [...] of hearing aid Active Diagnosis [facility] [place] [facility] Medications Combined list [...] EVERY MORNING ORAL ACTIVE D[facility]G CONTRERAS 2013 [facility] HYDROCHLORO THIAZIDE 50MG/TRIAMT ERENE 75MG TAB TAKE ONE TABLET BY MOUTH EVERY MORNING ORAL ACTIVE [facility] IBUPROFEN TAB TAKE BY MOUTH NEEDED ORAL ACTIVE [facility] LISINOPRIL 40MG TAB TAKE ONE TABLET BY MOUTH DAILY ORAL ACTIVE [facility] SIMVASTATIN 40MG TAB TAKE ONE-HALF TABLET BY MOUTH DAILY ORAL ACTIVE [facility] SM[facility] 2013 [facility] [place] [facility] [facility] Immunizations Combined list of available immunizations from the Department of Defense and Veterans Affairs facilities. Immunization Series Date Given Administered By Site Reaction Lot Number CVX Code Drug Manager Urology Status Comments Source COVID-19 (MODERNA), MRNA, LNP-S, PF, 100 MCG/0.5 ML DOSE 2 2020 207 complet ed MOD; [id number]; 1 [facility] COVID-19 (MODERNA), MRNA, LNP-S, PF, 100 MCG/0.5 ML DOSE 1 2020 207 complet ed MOD; [id number]; 1 [facility] [place] INFLUENZA, INJECTABLE, MDCK, PRESERVATIVE FREE, QUADRIVALENT 2018 171 complet ed Partner: [facility]. Administe red by: [facility] Clinician (NPI=Not Provided) . Partner 6 Lot#: [id number] Mfr: [facility]QIRUS [facility] [place] [...] FLU,3 YRS (HISTORICAL) 2002 88 complet ed [facility] Encounters Combined list of: 1) Encounters from Department of Veterans Affairs facilities going back up to thelast 18 months. 2) Encounters from the Department of Defense facilities going back up to 280 months. Location Location Details Encounter Type Encounter Number Reason For Visit Attending Provider ADM Date DC Date Status Disposition Source [facility] [place] [facility] Outpatient Encounter [id number] 09/06 [facility] [place] [facility] [place] [facility] HEARING AID REPAIR/MOD IFYING [id number] Diagnos is: ICD-10- CM Z46.1 Encount er for fitting and adjustm ent of hearing aid<br/ > AALIYAH,KATIE L 03/03 [facility] [place] [facility] CNT [facility] [place] [facility] HEARING AID REPAIR/MOD IFYING [id number] Diagnos is: ICD-10- CM Z46.1 Encount er for fitting and adjustm ent of hearing aid<br/ > AALIYAH,KATIE L 04/27 [facility] [place] [facility] [facility] Social History Combined list of available smoking, tobacco, and other social history from Department of Defense and Veterans Affairs facilities. Social History Type Response Date Comment Source Tobacco smoking status NHIS QUIT TOBACCO USE > 7 YEARS AGO 12/30/2017 [facility] [place] [facility] History of tobacco use QUIT TOBACCO USE > 7 YEARS AGO 11/12/2016 [facility] [place] [facility] History of tobacco use QUIT TOBACCO USE > 7 YEARS AGO 09/14/2015 stopped in the 80's [facility] [place] [facility] History of tobacco use HISTORY OF SMOKING 08/05/2005 Smoke free since 1986 [facility] [place] [facility] History of tobacco use HISTORY OF SMOKING 06/27/2004 smoke-free since 1987. [facility] [place] [facility] History of tobacco use HISTORY OF SMOKING 07/13/2003 Quit in 1983 [facility] [place] [facility] History of tobacco use QUIT TOBACCO USE > 7 YEARS AGO 01/05/2002 [place] [facility]
--- OUTSIDE RECORDS SUMMARY | 2024-09-17 16:09 | XMS_ITS ---
Author Name [facility] Organization [facility] Address [address] [place] [id number] Care Team Providers Care Glass Worker Name Role Phone DOUG CONTRERAS Primary Care [...] Anthony's Name Patient's Relationship to Policy Anthony [facility] ION TECH KANCHAN Jul 09, 2012 [id number] [phone] LAYNE SMART PATIENT MEDICARE (R) MEDICARE (M) PART A Dec 07, 2010 PART A [id number] LAYNE SMART PATIENT Selected Encounter This section includes the information on record at [place] for the Encounter. Date/Time Encounter Type Encounter [...] of hearing aid RAS CASTANON Errol FAHEEM [facility] Apr 27, 2024 09:24 AM SECONDARY Sensorineural hearing loss, bilateral KENNYRayaRAS [facility] Social History: Smoking Status (Most current) and Tobacco Use (All prior to encounter date) This section includes the most current, and the historical, smoking and tobacco- related health factors from the [place] facility where the Encounter took place. Current Smoking Status This section includes the most current smoking, or tobacco-related health factor, from the [place] facility where the Encounter took place. Date/Time Current Smoking Status Comment Facil ity Dec 30, 2017 02:22 PM QUIT TOBACCO USE > 7 YEARS AGO [facility] Tobacco Use History This section includes a history of the smoking, or tobacco-related health factors, that were collected on or before the date of the Encounter. The data comes from the [place] facility where the Encounter took place. Date/Time Smoking Status/Tobac co Use Comment Facility Nov 12, 2016 02:58 PM QUIT TOBACCO USE > 7 YEARS AGO [facility] Sep 14, 2015 04:22 PM QUIT TOBACCO USE > 7 YEARS AGO stopped in the 's [facility] Aug 05, 2005 03:05 PM HISTORY OF SMOKING Smoke free since 1986 [facility] Jun 27, 2004 03:51 PM HISTORY OF SMOKING smoke-free since 1987. [facility] Jul 13, 2003 03:26 PM HISTORY OF SMOKING Quit in 1983 [facility] Jan 05, 2002 02:30 PM QUIT TOBACCO USE > 7 YEARS AGO [facility] Encounter Notes: All associated encounter notes This section contains the clinical notes associated to the Encounter. Date/Time Encounter Note(s) Provider Source Apr 27, 2024 07:34 AM AUDIOLOGY NOTE: LOCAL TITLE: AUDIOLOGY HEALTH COMPUTER APPLICATIONS DEVELOPER STANDARD TITLE: AUDIOLOGY NOTE DATE OF NOTE: APR 27, 2024@07:34 ENTRY DATE: APR 27, 2024@07:34:36 AUTHOR: SCOTT CASTANON COSIGNER: TERE FISCHER URGENCY: STATUS: COMPLETED April 27, 2024 History/Background: [place] was seen for a hearing aid follow up, unaccompanied. scheduled today's appointment reporting his left earmold is not staying in his ear. also reported his back up hearing aid is not working. Hearing aids: Gewara Evolv AI BTEs Serial Numbers: [id number] Battery size: Rechargeable Date Issued: 02/13/2022 AND Hearing aids: Gewara 13Z Series i110 BTEs Serial Numbers: [id number] Battery size: 13 Date Issued: 11/04/2014 Hearing aid check: Both hearing aids were cleaned and checked. Replaced size 3 thin tube with a size 4 thin tube. reported better fit. Right Z series is confirmed , no power on audibles or amplification heard after battery was replaced. The right Z Series will be sent to documentation designer for repair and will be mailed directly to via [facility]. Otoscopy: Clear canal left ear, non-occluding cerumen deep in right ear canal. Tympanometry revealed a type A tympanogram. Plan: will follow up as needed. /luly/ SCOTT CASTANON Audiology Health Orange Picker Signed: 04/27/2024 10:20 /luly/ TERE Agustin, [facility]A CHIEF, AUDIOLOGY/CHANNEL MARKETING MANAGER Cosigned: 04/27/2024 11:02 SCOTT CASTANON CNTL [facility]N [facility]
--- OUTSIDE RECORDS SUMMARY | 2024-09-17 16:09 | XMS_ITS ---
Author Name [facility] Organization [facility] Address [address] [place] [address] Care Team Providers Care Manager Data Warehousing Name Role Phone DOUG CONTRERAS Primary Care [...] Anthony's Name Patient's Relationship to Policy Anthony [facility]GAN[facility] ION TECH KANCHAN Jul 09, 2012 [id number] [phone] [phone] LAYNE SMART PATIENT MEDICARE (R) MEDICARE (M) PART A Dec 07, 2010 PART A [id number] LAYNE SMART PATIENT Selected Encounter This section includes the information on record at [place] for the Encounter. Date/Time Encounter Type Encounter [...] and adjustment of hearing aid RAS CASTANON [facility] Mar 03, 2024 02:56 PM SECONDARY Sensorineural hearing loss, bilateral RAS CASTANON [facility] Plan of Treatment: Future Appointments (+ 6 months) and Future Tests (+/- 45 days) The Plan of Treatment section includes future care activities for the patient [facility] [place] [facility]. This section includes future appointments and future orders which are active, pending or scheduled. Future Appointments This section includes appointments that were scheduled to occur 6 months from the date of the Encounter, up to a maximum of 20 appointments. The data comes from all [place] treatment facilities. Appointment Date/Time Appointment Type Appointme nt Facility Name Apr 27, 2024 09:00 AM AMBULATORY - REHAB MEDICIN E [facility] Social History: Smoking Status (Most current) and Tobacco Use (All prior to encounter date) This section includes the most current, and the historical, smoking and tobacco- related health factors from the [place] facility where the Encounter took place. Current Smoking Status This section includes the most current smoking, or tobacco-related health factor, from the [place] facility where the Encounter took place. Date/Time Current Smoking Status Comment [facility] Dec 30, 2017 02:22 PM QUIT TOBACCO USE > 7 YEARS AGO [facility] Tobacco Use History This section includes a history of the smoking, or tobacco-related health factors, that were collected on or before the date of the Encounter. The data comes from the [place] facility where the Encounter took place. Date/Time Smoking Status/Tobac co Use Comment Facility Nov 12, 2016 02:58 PM QUIT TOBACCO USE > 7 YEARS AGO [facility] Sep 14, 2015 04:22 PM QUIT TOBACCO USE > 7 YEARS AGO stopped in the 's [facility] Aug 05, 2005 03:05 PM HISTORY OF SMOKING Smoke free since 1986 [facility] Jun 27, 2004 03:51 PM HISTORY OF SMOKING smoke-free since 1987. [facility] Jul 13, 2003 03:26 PM HISTORY OF SMOKING Quit in 1983 [facility] Jan 05, 2002 02:30 PM QUIT TOBACCO USE > 7 YEARS AGO [facility] Encounter Notes: All associated encounter notes This section contains the clinical notes associated to the Encounter. Date/Time Encounter Note(s) Provider Source Mar 03, 2024 08:04 AM AUDIOLOGY NOTE: LOCAL TITLE: AUDIOLOGY RUST STANDARD TITLE: AUDIOLOGY NOTE DATE OF NOTE: MAR 03, 2024@08:04 ENTRY DATE: MAR 03, 2024@08:04:43 AUTHOR: SCOTT CASTANON COSIGNER: TERE FISCHER URGENCY: STATUS: COMPLETED March 03, 2024 History/Background: [place] was seen for a hearing aid follow up, unaccompanied. scheduled today's appointment reporting his left hearing aid is not working. stated he sent his 2015 Z Series out for repair and since he received them back they have been loud and giving feedback Hearing aids: [employer] Evolv AI BTEs Serial Numbers: [id number] Battery size: Rechargeable Date Issued: 02/13/2022 AND Hearing aids: [employer]io 13Z Series i110 BTEs Serial Numbers: [id number] Battery size: 13 Date Issued: 11/04/2014 Hearing aid check: Both hearing aids were cleaned and checked. Replaced size 3 thin tubes and aries covers on all 4 hearing aids. Biologic check was good for EVOLV aids. Z Series were tinny with high pitches. Z Series were connected to [employer] and 03/02/2015 settings were restored to hearing aids. Listening inspection was good. Otoscopy: Clear canal left ear, nearly occluding cerumen right ear. Advised [place] to contact pcp team for cerumen removal. Battery supply was ordered per Veterans request. Plan: [place] will follow up as needed. Suicide Screen: C-SSRS Screening [place]-Suicide Severity Rating Scale (C-SSRS Screener) 1. Over [...] other questions. /luly/ SCOTT CASTANON Audiology Health Service Observer Chief Signed: 03/03/2024 14:58 /luly/ TERE Agustin, JOSE JUAN-A CHIEF, AUDIOLOGY/CONDOMINIUM MANAGER Cosigned: 03/03/2024 15:07 SCOTT CASTANON [facility]
[2024-09-17 17:27] LABS: Alanine Aminotransferase 32 U/L (0-40); Albumin Level 4.2 g/dL (3.5-5.0); Alkaline Phosphatase 61 U/L (39-117); Anion Gap 9 (12-20); Aspartate Amino Transferase 32 U/L (5-37); Bilirubin Total 0.7 mg/dL (0.0-1.0); Blood Urea Nitrogen 23 mg/dL (9-16); Calcium 8.8 mg/dL (8.4-10.2); Carbon Dioxide 29 mmol/L (22-29); Chloride 102 mmol/L (96-108); Estimated Glomerular Filt Rate > 60; Glucose Random 95 mg/dL (60-115); Potassium 4.1 mmol/L (3.3-5.1); Sodium 136 mmol/L (135-145); Total Protein 7.3 g/dL (6.5-8.0)
== END 2024-09-17 16:07 | disposition home or self-care (01) ==
LOC: HO.LAB 16:06
PROVIDERS: PCP Internal Medicine; Visit Provider Internal Medicine
DX: E87.1 Hypo-osmolality and hyponatremia (principal); R73.9 Hyperglycemia, unspecified
CPT/HCPCS: 36415; 80053

== ENCOUNTER 2024-09-29 12:55 | Outpatient (AMB) | payer OTHER, SELFPAY ==
[2024-09-29 13:00] VITALS: BP 124/58; RESP 64; BMI 22.5
--- NOTE | 2024-09-29 13:00 | MHC.OFFVIS ---
Vital Signs 09/29/24 13:00 Height 5 ft 8 in Weight 148 lb BMI 22.5 BP 124/58 L Blood Pressure Location Lt brachial Position Sitting Respiration 64 H Intake Visit Reasons: Overdue for recall colo. Consult. Intake Note: New consult for pre colonoscopy screening recall. Patient denies any GI issues. Industrial Design Engineer Required: No Accompanied by: Self / Same As Patient Allergies No Known Allergies [No Known Allergies*] Allergy (Verified 09/29/24 12:59) HPI HPI Overdue for recall colo. Consult.: Details: LAST COLONOSCOPY 05/06/[address] TUCKER Findings: Terminal Ileum ? Not evaluated Cecum ? A 1 cms sessile polyp adjacent to the appendicular orifice - removed with a cold snare. Ascending Colon ? A 7-8 mm flat polyp in proximal AC removed with a cold snare. Transverse Colon - A 1 cms flat polyp in proximal TC raised with 2 cc of normal saline and removed with a hot snare. Descending Colon ? Moderate diverticulosis Sigmoid Colon ? At 30 - 35 cms - a 12-15 mm sessile polyp removed with a hot snare. A 7-8 mm sessile polyp removed with a cold snare. A 3rd 7-8 mm polyp could not be removed due to excessive spasm of the colon. Moderate diverticulosis Rectum ? Normal Ano-rectum - Moderate internal hemorrhoids Colon preparation: Good Impression and Post Procedure Diagnosis: Colonoscopy Findings: Five polyps removed - a 6th polyp in the SC at 25-30 cms could not be removed due to excessive spasm. Moderate diverticulosis seen in the left colon Moderate hemorrhoids on retroflexed exam. Plan: Await pathology results Patient has an appointment on 05/27/19 in the GI Clinic with Josefa Hough NP. Repeat Colonoscopy interval based on path results ? in 2-3 years if polyps are adenomatous and due to a history of adenomatous colon polyps. Colon polyps and diverticulosis handouts were given in the discharge area ADDENDUM - BIOPSIES SHOWED: A. Colon, cecal polyp, polypectomy: Colonic mucosa with mild surface hyperplastic changes. B. Colon, ascending polyps, polypectomy: Polypoid colonic mucosa within normal limits. C. Colon, transverse polyp, polypectomy: Polypoid colonic mucosa within normal limits. D. Colon, sigmoid polyps, polypectomy: Fragments of tubular TODAY'S VISIT Patient is here today for pre colonoscopy screening. Patient was sent to us by his PCP.? Last colonoscopy?as mentioned above in 2019. Recommendation was made for 2-3 years follow-up. Patient denies any gastrointestinal symptoms in the past or at present.? ? Denies history of difficulty with sedation or anesthesia in the past.? Negative for history of sleep apnea.? Denies any history of cardiac, renal, pulmonary, or hepatic disease.?? No history of infectious? diseases like hepatitis A, B, C, HIV or tuberculosis.? Patient is on Plavix [facility] Medical History (Updated 09/29/24 @ 13:15 by Ayesha Reed, [facility]) Anemia Hyperglycemia Herniated disc Hernia Hyperlipidemia Hypertension Normocytic anemia Surgical History S/P colonoscopic polypectomy Family History Father Pneumonia Mother Diabetes mellitus Sister No problems noted. 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 Cognitive needs: No Hearing needs: Yes Vision needs: No Review of Systems Const Denies weight gain and Denies weight loss ENT Reports no additional complaints, Denies dysphagia and Denies odynophagia Card Reports no additional complaints Resp Reports no additional complaints GI Denies abdominal pain, Denies belching, Denies melena, Denies bloating, Denies change in bowel habits, Denies dysphagia, Denies excessive flatus, Denies dyspepsia, Denies heartburn, Denies diarrhea, Denies loose stools, Denies nausea, Denies odynophagia and Denies vomiting Reports no additional complaints Musc Reports no additional complaints Neuro Reports no additional complaints Psych Reports no additional complaints Endo Reports no additional complaints Physical Exam Vital Signs: Last Vital Signs Resp 64 H 09/29/24 13:00 BP 124/58 L 09/29/24 13:00 BMI result Body Mass Index 22.5 Const General: healthy appearing, no acute distress and well developed Nutritional Appearance: well nourished Orientation/consciousness: patient oriented x3 Resp Effort & Inspection: normal respiratory effort, able to speak in complete sentences, no tracheal deviation and symmetric chest movement Auscultation: clear to auscultation bilaterally Cardio Rate: regular rate GI Inspection: Yes normal to inspection and No distended Palpation (GI): Soft to palpation, not firm, nontender and No hepatosplenomegaly present Auscultation: normal bowel sounds General: Yes no CVA tenderness Back/Spine/Pelvis Back: no CVA tenderness Skin General skin exam: elasticity normal, turgor normal and dry skin Neuro General: patient oriented x3 Psych Appearance: grossly normal Mental Status: mental status grossly normal Assessment & Plan Assessment & Plan (1) Constipation: Code(s): K59.00 - Constipation, unspecified Category: Medical Qualifiers: Constipation type: slow transit constipation Qualified Code(s): K59.01 - Slow transit constipation (2) Anemia: Code(s): D64.9 - Anemia, unspecified Category: Medical (3) Screen for colon cancer: Code(s): Z12.11 - Encounter for screening for malignant neoplasm of colon Plan Patient denies any GI, cardiac or respiratory symptoms.? Denies any issues with anesthesia in the past.? Denies any history of sleep apnea.? No history infectious diseases in the past or present.? Patient is on Plavix? No family or personal history of colon cancer or polyps.? Patient denies melena, hematochezia, unintentional weight loss or ribbon like stools.? Discussed at length the pre-procedure,? prep, diet & medications as well as what to expect prior, during and after the procedure.?? Stressed the importance of good bowel prep.? Recommended the use of Vaseline or Calmoseptine OTC & baby wipes with bowel movements to promote comfort.? ?Patient verbalizes understanding and agrees to plan of care.?He was given the opportunity to ask questions and all questions answered.? Message sent to district claims manager at cardiology practice to add clearance to the appointment before going for the procedure.? Medications: New polyethylene glycol 3350 (Miralax) As directed by gastro[facility]ology department at [facility] 238 grams PO ONCE 238 grams 0RF Z12.11 - Encounter for screening for malignant neoplasm of colon bisacodyl (Dulcolax (bisacodyl)) take 4 tabs at noon the day before your colonoscopy 20 mg (4 x 5 mg) PO ONCE 1 day 4 tabs 0RF Z12.11 - Encounter for screening for malignant neoplasm of colon Coding Level of Care Code New Pt Level 3 (07632) Diagnoses Slow transit constipation K59.01 Constipation type: slow transit constipation Anemia D64.9 Screen for colon cancer Z12.11 Time Spent (min) 40 Comment 30 minutes spent with patient and additional 10 minutes spent reviewing his records
--- OUTSIDE RECORDS SUMMARY | 2024-09-29 14:46 | XMS_ITS | Continuity of Care Document ---
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 Name Role Phone [facility] Unavailable Unavailable Problems Combined list of problems [...] and adjustment of hearing aid [facility] [place] [facility] Medications Combined [...] EVERY MORNING ORAL ACTIVE [facility]G [facility] [place] HYDROCHLORO THIAZIDE 50MG/TRIAMT ERENE 75MG TAB TAKE ONE TABLET BY MOUTH EVERY MORNING ORAL ACTIVE [facility] [place] IBUPROFEN TAB TAKE BY MOUTH NEEDED ORAL ACTIVE [facility]NER [facility] [place] LISINOPRIL 40MG TAB TAKE ONE TABLET BY MOUTH DAILY ORAL ACTIVE [facility] [place] [facility] SIMVASTATIN 40MG TAB TAKE ONE-HALF TABLET BY MOUTH DAILY ORAL ACTIVE [facility] 2013 [facility] [place] [facility] Immunizations Combined list of available immunizations from the Department of Defense and Veterans Affairs facilities. Immunization Series Date Given Administered By Site Reaction Lot Number CVX Code Drug Storage Facility Housekeeper Status Comments Source COVID-19 (MODERNA), MRNA, LNP-S, PF, 100 MCG/0.5 ML DOSE 2 2020 207 complet ed MOD; [id number]; [facility] [place] [facility] [facility] COVID-19 (MODERNA), MRNA, LNP-S, PF, 100 MCG/0.5 ML DOSE 1 2020 207 complet ed MOD; [id number]; 1 [facility] [place] [facility] INFLUENZA, INJECTABLE, MDCK, PRESERVATIVE FREE, QUADRIVALENT 2018 171 complet ed Partner: [facility]. Administe red by: [facility] Clinician (NPI=Not Provided) . Partner 6 Lot#: [id number] Mfr: [facility] [place] [...] FLU,3 YRS (HISTORICAL) 2002 88 complet ed [facility] Encounters Combined list of: 1) Encounters from Department of Veterans Affairs facilities going back up to thelast 18 months. 2) Encounters from the Department of Defense facilities going back up to 280 months. Location Location Details Encounter Type Encounter Number Reason For Visit Attending Provider ADM Date DC Date Status Disposition Source [facility] [place] [facility] Outpatient Encounter [id number] 09/06 [facility] [place] [facility] [facility] [place] [facility] HEARING AID REPAIR/MOD IFYING [id number] Diagnos is: ICD-10- CM Z46.1 Encount er for fitting and adjustm ent of hearing aid<br/ > AALIYAH,KATIE L 03/03 [facility] [place] [facility] [place] [facility] HEARING AID REPAIR/MOD IFYING [id number] Diagnos is: ICD-10- CM Z46.1 Encount er for fitting and adjustm ent of hearing aid<br/ > AALIYAH,KATIE L 04/27 [facility] [place] [facility] [facility] Social History Combined list of available smoking, tobacco, and other social history from Department of Defense and Veterans Affairs facilities. Social History Type Response Date Comment Source Tobacco smoking status NHIS QUIT TOBACCO USE > 7 YEARS AGO 12/30/2017 [facility] [place] [facility] History of tobacco use QUIT TOBACCO USE > 7 YEARS AGO 11/12/2016 [facility] [place] [facility] History of tobacco use QUIT TOBACCO USE > 7 YEARS AGO 09/14/2015 stopped in the 80's [facility] [place] [facility] History of tobacco use HISTORY OF SMOKING 08/05/2005 Smoke free since 1986 [facility] [place] [facility] History of tobacco use HISTORY OF SMOKING 06/27/2004 smoke-free since 1987. [facility] [place] [facility] History of tobacco use HISTORY OF SMOKING 07/13/2003 Quit in 1983 [facility] [place] [facility] History of tobacco use QUIT TOBACCO USE > 7 YEARS AGO [place]05/2002 [facility]
== END 2024-09-29 16:56 | disposition home or self-care (01) ==
PROVIDERS: PCP Internal Medicine; Visit Provider Nurse Practitioner Family
DX: Z01.818 Encounter for other preprocedural examination (principal); Z12.11 Encounter for screening for malignant neoplasm of colon; K59.01 Slow transit constipation; D64.9 Anemia, unspecified
CPT/HCPCS: 99202

== ENCOUNTER → 2024-09-29 12:55 | Outpatient (BNVA) | payer OTHER, SELFPAY | PROVIDERS: PCP Internal Medicine; Visit Provider Nurse Practitioner Family ==

== ENCOUNTER 2024-11-15 15:16 | Outpatient (AMB) | payer OTHER, SELFPAY ==
--- NOTE | 2024-11-15 15:46 | A.OFFVIS_ITS ---
Vital Signs 11/15/24 15:48 Height 5 ft 8 in Weight 152 lb 8.958 oz BMI 23.2 BP 120/60 Blood Pressure Location Lt brachial Position Sitting Pulse 63 Pulse Source Monitor Intake Visit Reasons: 6 mth f/up, clear for colonoscopy Intake Note: 6 mth f/up/ clearance for colonoscopy Recruiting Coordinator Required: No Accompanied by: Self / Same As Patient Allergies No Known Allergies [No Known Allergies*] Allergy (Verified 09/29/24 12:59) Medication List - Last Reconciled 11/15/24 by Klaus Casillas MD atenolol (Tenormin) 50 mg PO DAILY atorvastatin (Lipitor) 40 mg PO DAILY bisacodyl (Dulcolax (bisacodyl)) 20 mg (4 x 5 mg) PO ONCE 1 day clopidogrel 75 mg PO DAILY lisinopril (Zestril) 40 mg PO DAILY polyethylene glycol 3350 (Miralax) 238 grams PO ONCE sildenafil (Viagra) 100 mg PO DAILY PRN triamterene-hydrochlorothiazid 37.5-25 mg 1 cap PO QAM HPI Comments Details: 79-year-old gentleman here for follow-up. He has background history of known coronary artery disease with occluded right coronary artery and severe LAD stenosis which was FFR positive. He was taken for PCI to LAD. He had right radial artery dissection. He is asymptomatic. No bleeding issues. He has been following Mediterranean diet and has lost 20 pounds. 05/14/2023: He returns for follow-up. He has been doing well. He continues to work 40 hours per week. No chest discomfort shortness of breath. He had some shoulder injury and is asking whether he can use NSAIDs. I have advised him to use them as needed and not regularly specially not multiple doses in a day. He has been taking aspirin Plavix since his PCI. 05/24/2024: He is here for follow-up. Continues to be asymptomatic. Taking medications regularly. Blood pressure is well controlled. 11/15/2024: He is here for follow-up. Clinically stable. Denying any significant symptoms. On Plavix monotherapy currently. He needs colonoscopy. [facility] Medical History (Updated 09/29/24 @ 13:15 by Ayesha Reed, [facility] Anemia Hyperglycemia Herniated disc Hernia Hyperlipidemia Hypertension Normocytic anemia Surgical History S/P colonoscopic polypectomy Family History Father Pneumonia Mother Diabetes mellitus Sister No problems noted. 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 Cognitive needs: No Hearing needs: Yes Vision needs: No Review of Systems Const Denies chills, Denies fatigue, Denies fever(s), Denies frequent falls, Denies weakness, Denies weight gain and Denies weight loss ENT Denies dizziness Card Denies chest pain, Denies leg edema, Denies lightheadedness, Denies palpitations, Denies dyspnea and Denies dyspnea on exertion Resp Denies cough, Denies dyspnea and Denies dyspnea on exertion GI Denies hematochezia Musc Denies abnormal gait, Denies muscle weakness, Denies numbness, Denies radiating pain into limb and Denies tingling Neuro Denies abnormal gait, Denies dizziness, Denies frequent falls, Denies numbness, Denies tingling and Denies weakness Endo Denies fatigue and Denies palpitations Physical Exam Vital Signs: Last Vital Signs Pulse 63 11/15/24 15:48 BP 120/60 11/15/24 15:48 BMI result Body Mass Index 23.2 GENERAL APPEARANCE: in no acute distress, well developed, well nourished. NECK/THYROID: no carotid bruit, no jugular venous distention. SKIN: no suspicious lesions, warm and dry. HEART: no murmurs, regular rate and rhythm, S1, S2 normal. LUNGS: clear to auscultation bilaterally. ABDOMEN: normal, bowel sounds present, soft, nontender, nondistended. EXTREMITIES: no clubbing, cyanosis, or edema. PERIPHERAL PULSES: equal. NEUROLOGIC: nonfocal, alert and oriented. PSYCH: mood/affect full range. Office Procedures EKG Details: Sinus rhythm 63 beats per minute, normal axis, nonspecific T-wave changes, QTC 401 milliseconds. [id number], Complete Assessment & Plan Assessment & Plan (1) Hypertension: Comment: Stable Code(s): I10 - Essential (primary) hypertension Category: Medical (2) CAD (coronary artery disease): Comment: silent ischemia. 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 He has FFR positive mid LAD stenosis which is collateralizing the right coronary artery. s/p MICHAEL placement 11/2020 Code(s): I25.10 - Atherosclerotic heart disease of [place] coronary artery without angina pectoris Category: Medical Plan Pleasant 79 year gentleman who is here for follow-up. 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 He had a drug-eluting stent placed to LAD in 2020. He has done well since then. On Plavix monotherapy at this point. Blood pressure is well controlled. Intermediate risk for perioperative complications. For colonoscopy he has to hold the Plavix for 5 days. In that time he will take baby aspirin 81 mg. Colonoscopy should be done on baby aspirin. Follow-up in 6 months. Thank you for allowing me to participate in the care of your patient. Please feel free to contact me if you have any questions. Coding Level of Care Code Est Pt Level 4 (41675) Diagnoses Hypertension I10 CAD (coronary artery disease) I25.10 CPT Codes EKG - CPT: 73612-[id number], Complete ([id number])
[2024-11-15 15:48] VITALS: BP 120/60; PULSE 63; BMI 23.2
--- OUTSIDE RECORDS SUMMARY | 2024-11-15 17:27 | XMS_ITS | Continuity of Care Document ---
Author Name [facility] Organization [facility] Care Team Providers Care Fitness Professional Name Role Phone [facility] Unavailable Unavailable Problems Combined list of problems [...] and adjustment of hearing aid Active [facility] [place] [facility] Medications Combined [...] EVERY MORNING ORAL ACTIVE [facility] [place] HYDROCHLORO THIAZIDE 50MG/TRIAMT ERENE 75MG TAB TAKE ONE TABLET BY MOUTH EVERY MORNING ORAL ACTIVE [facility] [place] IBUPROFEN TAB TAKE BY MOUTH NEEDED ORAL ACTIVE [facility] [place] LISINOPRIL 40MG TAB TAKE ONE TABLET BY MOUTH DAILY [facility]AL ACTIVE [facility] [place] SIMVASTATIN 40MG TAB TAKE ONE-HALF TABLET BY MOUTH DAILY [facility]AL ACTIVE [facility] 2013 [facility] [place] [facility] [facility] Immunizations Combined list of available immunizations from the Department of Defense and Veterans Affairs facilities. 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 Administe red by: [facility] Clinician (NPI=Not Provided) . Partner 6 Lot#: [id number] Mfr: [facility] [place] [...] FLU,3 YRS (HISTORICAL) 2002 88 complet ed [facility] Encounters Combined list of: 1) Encounters from Department of Veterans Affairs facilities going backup to the last 18 months, not all [place] inpatient encounters are included; 2) Encounters from the Department of Defense facilities going backup to 280 months. Location Location Details Encounter Type Encounter Number Reason For Visit Attending Provider ADM Date DC Date Status [facility] Encounter [id number] 09[facility] HEARING AID REPAIR/MOD IFYING [id number] Diagnos is: ICD-10- CM Z46.1 Encount er for fitting and adjustm ent of hearing aid KATIE FISCHER L 03/03 [facility] HEAR[facility] AID REPAIR/MOD IFYING [id number] Diagnos is: ICD-10- CM Z46.1 Encount er for fitting and adjustm ent of hearing aid KATIE FISCHER L 04[facility]27 [facility] Social History Combined list of available smoking, tobacco, and other social history from Department of Defense and Veterans Affairs facilities. Social History Type Response Date Comment Source Tobacco smoking status NHIS QUIT TOBACCO USE > 7 YEARS AGO 12/30/2017 [facility] History of tobacco use QUIT TOBACCO USE > 7 YEARS AGO 11[facility]12/2016 [facility] History of tobacco use QUIT TOBACCO USE > 7 YEARS AGO 09/14/2015 stopped in the 80's [facility] [place] [facility] History of tobacco use HISTORY OF SMOKING 08/05/2005 Smoke free since 1986 [facility] History of tobacco use HISTORY OF SMOKING 06/27/2004 smoke-free since 1987. [facility] [place] [facility] History of tobacco use HISTORY OF SMOKING 07/13/2003 [facility] History of tobacco use QUIT TOBACCO USE > 7 YEARS AGO 01/05/2002 [facility] [place] [facility]
== END 2024-11-15 16:21 | disposition home or self-care (01) ==
PROVIDERS: PCP Internal Medicine; Visit Provider Internal Medicine Cardiovascular Disease
DX: I10 Essential (primary) hypertension (principal); I25.10 Atherosclerotic heart disease of native coronary artery without angina pectoris
CPT/HCPCS: 93010; 99214

== ENCOUNTER → 2024-11-15 15:16 | Outpatient (BNVA) | payer OTHER, SELFPAY | PROVIDERS: PCP Internal Medicine; Visit Provider Internal Medicine Cardiovascular Disease | DX: I25.10 Atherosclerotic heart disease of native coronary artery without angina pectoris (principal); I10 Essential (primary) hypertension; Z79.02 Long term (current) use of antithrombotics/antiplatelets | CPT/HCPCS: 93005 ==

== ENCOUNTER 2025-01-25 09:30 | Outpatient (AMB) | payer OTHER, SELFPAY ==
--- NOTE | 2025-01-25 09:32 | MHC.PC.OV ---
Vital Signs 01/25/25 09:34 Height 5 ft 8 in Weight 151 lb BMI 23.0 BP 122/68 Blood Pressure Location Lt brachial Position Sitting Respiration 18 Pulse 58 Pulse Source Pulse Oximeter Temp 97.5 F Temp Source Oral Pulse Oximetry (%) 99 Oxygen Delivery Method Room Air Intake Visit Reasons: review of xrays Intake Note: Pt is here today for a sick visit. Pt c/o pain on the back of his knee for couple of months. Allergies No Known Allergies [No Known Allergies*] Allergy (Verified 01/25/25 09:37) Tobacco use date assessed: 01/25/25 Fall risk assessment: 1 Fall in past year Last assessed Fall Risk: 01/25/25 Dental Screening Dental Screen Date: 01/25/25 Did you have a dental visit in the last 12 months?: Yes Did you have a dental problem in the last 6 months where you did not have access to dental care?: No Was dental information given to patient?: Patient has dentist HPI review of xrays HPI Details Pt presents for f/u HTN, hyperlipid, CAD, stable on meds. Patient complains of right knee pain behind the joint for 2 months worse when walking down the stairs. He denies any injury joint swelling or pain at rest PFSH Medical History (Updated 01/25/25 @ 10:15 by Hollie Starks MD) Anemia Hyperglycemia Herniated disc Hernia Hyperlipidemia Hypertension Normocytic anemia Surgical History S/P colonoscopic polypectomy Family History Father Pneumonia Mother Diabetes mellitus Sister No problems noted. 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 1. Little interest or pleasure in doing things: not at all 2. Feeling down, depressed, or hopeless: not at all 3. Trouble falling or staying asleep, or sleeping too much: not at all 4. Feeling tired or having little energy: not at all 5. Poor appetite or overeating: not at all 6. Feeling bad about yourself - or that you are a failure or have let yourself or your family down: not at all 7. Trouble concentrating on things, such as reading the newspaper or watching television: not at all 8. Moving or speaking so slowly that other people could have noticed. Or the opposite - being so fidgety or restless that you have been moving around a lot more than usual: not at all 9. Thoughts that you would be better off or of hurting yourself in some way: not at all Total score: 0 Depression Screening Interpretation: Negative Depression Screening Done: Yes 13436 - PHQ-9 Billing: Yes Source: Developed by Drs. Efrain Nelson, Matt Anderson and colleagues, with an educational jamila from [employer]. Thrive Questionnaire Date Thrive assessed: 01/25/25 I am a: Patient AUDIT C Alcohol Use Questionnaire (AUDIT-C) 1. How often do you have a drink containing alcohol?: Monthly or less 2. How many drinks containing alcohol do you have on a typical day when you are drinking?: 1 or 2 3. How often do you have six or more drinks on one occasion?: Never Total Score: 1 MARLEY-7 AMB Questionnaire MARLEY-7 Date MARLEY - 7 assessed: 04/22/24 Source: Developed by Drs. Efrain Nelson, Kathleen Strong, Matt Mason and colleagues, with an educational jamila from [employer]. Review of Systems Const All systems reviewed & are unremarkable except as noted in HPI and below ENT Reports no additional complaints Card Reports no additional complaints Resp Reports no additional complaints GI Reports no additional complaints Reports no additional complaints Physical exam (Primary Care) Vital Signs: Last Vital Signs Temp 97.5 F 01/25/25 09:34 Pulse 58 01/25/25 09:34 Resp 18 01/25/25 09:34 BP 122/68 01/25/25 09:34 Pulse Ox 99 01/25/25 09:34 Oxygen Delivery Method Room Air 01/25/25 09:34 BMI result Body Mass Index 23.0 Tobacco/Smoking Status: Tobacco use Status Tobacco use date assessed 01/25/25 01/25/25 09:41 Patient Tobacco Use Status Former Tobacco user 01/25/25 09:32 e-Cigarette/Vaping Use Never Used 01/25/25 09:32 PHQ-9: PHQ-9 Score PHQ-9: Total score 0 01/25/25 09:32 Depression Screening Interpretation: Negative Thrive Assessment: Date of Thrive Assessment Date Thrive assessed 01/25/25 01/25/25 09:32 Const General: no acute distress HENMT Head: Yes normal to inspection Eyes General: appearance normal, both eyes and all related structures Neck Neck: Yes supple Resp Effort & Inspection: normal respiratory effort Auscultation: diminished lung sounds Cardio Rhythm: regular rhythm Heart sounds: S1 normal heart sound present and S2 normal heart sound present GI Inspection: Yes normal to inspection Palpation (GI): Soft to palpation Extrem Other: There is decreased range of motion , crepitus and osteoarthritic joint deformity of right knee. No soft tissue swelling erythema or warmth. There is no calf tenderness Coding Level of Care Code Est Pt Level 4 (28125) Complex EM visit Add On G2211 Diagnoses Hypertension I10 Hyperlipidemia E78.5 Hyponatremia E87.1 Right knee pain M25.561 Additional Codes PHQ-9 - 30725 - PHQ-9 Billing: Yes ([id number]) Assessment & Plan Assessment & Plan (1) Hypertension: Comment: Stable Code(s): I10 - Essential (primary) hypertension Category: Medical Plan: Continue current medications (2) Hyperlipidemia: Comment: Patient could not tolerate 80 mg of atorvastatin Code(s): E78.5 - Hyperlipidemia, unspecified Category: Medical Plan: Continue statin (3) Hyponatremia: Code(s): E87.1 - Hypo-osmolality and hyponatremia Category: Medical Plan: Check basic metabolic panel today (4) Right knee pain: Code(s): M25.561 - Pain in right knee Category: Medical Plan: Obtain x-ray of right knee and referred to physical therapy Orders: Orders Basic Metabolic Panel Today E78.5 - Hyperlipidemia, unspecified, E87.1 - Hypo-osmolality and hyponatremia, I10 - Essential (primary) hypertension, Z00.00 - Encounter for general adult medical examination without abnormal findings Comprehensive [place]. Panel Fast 6 Months E78.5 - Hyperlipidemia, unspecified, E87.1 - Hypo-osmolality and hyponatremia, I10 - Essential (primary) hypertension, Z00.00 - Encounter for general adult medical examination without abnormal findings Complete Blood Count Auto Diff 6 Months E78.5 - Hyperlipidemia, unspecified, E87.1 - Hypo-osmolality and hyponatremia, I10 - Essential (primary) hypertension, Z00.00 - Encounter for general adult medical examination without abnormal findings Lipid Panel 6 Months E78.5 - Hyperlipidemia, unspecified, E87.1 - Hypo-osmolality and hyponatremia, I10 - Essential (primary) hypertension, Z00.00 - Encounter for general adult medical examination without abnormal findings XR knee RT 2V Today M25.561 - Pain in right knee PT Evaluation and Treatment Today M25.561 - Pain in right knee
[2025-01-25 09:34] VITALS: BP 122/68; PULSE 58; RESP 18; TEMP 36.4; O2SAT 99; BMI 23.0
--- OUTSIDE RECORDS SUMMARY | 2025-01-25 10:25 | XMS_ITS | Encounter Summary ---
Author Name [facility] [place] [facility] [place] [facility] [place] Address [address] [place] [address] Care Team Providers Care Digital Campaign Specialist Name Role Phone DOUG CONTRERAS Primary Care [...] Anthony's Name Patient's Relationship to Policy Anthony [facility] Jul 09, 2012 [id number] LAYNE SMART PATIENT MEDICARE (R) MEDICARE (M) PART A Dec 07, 2010 PART A [id number] LAYNE SMART PATIENT Selected Encounter This section includes the information on record at [place] for the Encounter. Date/Time Encounter Type Encounter [...] of hearing aid RAS CASTANON Errol FAHEEM [facility] Apr 27, 2024 09:24 AM SECONDARY Sensorineural hearing loss, bilateral KENNYRayaRAS [facility] Social History: Smoking Status (Most current) and Tobacco Use (All prior to encounter date) This section includes the most current, and the historical, smoking and tobacco- related health factors from the [place] facility where the Encounter took place. Current Smoking Status This section includes the most current smoking, or tobacco-related health factor, from the [place] facility where the Encounter took place. Date/Time Current Smoking Status Comment Facil ity Dec 30, 2017 02:22 PM QUIT TOBACCO USE > 7 YEARS AGO [facility] Tobacco Use History This section includes a history of the smoking, or tobacco-related health factors, that were collected on or before the date of the Encounter. The data comes from the [place] facility where the Encounter took place. Date/Time Smoking Status/Tobac co Use Comment Facility Nov 12, 2016 02:58 PM QUIT TOBACCO USE > 7 YEARS AGO [facility] Sep 14, 2015 04:22 PM QUIT TOBACCO USE > 7 YEARS AGO stopped in the 's [facility] Aug 05, 2005 03:05 PM HISTORY OF SMOKING Smoke free since 1986 [facility] Jun 27, 2004 03:51 PM HISTORY OF SMOKING smoke-free since 1987. [facility] Jul 13, 2003 03:26 PM HISTORY OF SMOKING Quit in 1983 [facility] Jan 05, 2002 02:30 PM QUIT TOBACCO USE > 7 YEARS AGO [facility] Encounter Notes: All associated encounter notes This section contains the clinical notes associated to the Encounter. Date/Time Encounter Note(s) Provider Source Apr 27, 2024 07:34 AM AUDIOLOGY NOTE: LOCAL TITLE: AUDIOLOGY [facility] STANDARD TITLE: AUDIOLOGY NOTE DATE OF NOTE: APR 27, 2024@07:34 ENTRY DATE: APR 27, 2024@07:34:36 AUTHOR: SCOTT CASTANON COSIGNER: TERE FISCHER URGENCY: STATUS: COMPLETED April 27, 2024 History/Background: [place] was seen for a hearing aid follow up, unaccompanied. [place] scheduled today's appointment reporting his left earmold is not staying in his ear. also reported his back up hearing aid is not working. Hearing aids: AmSafe Evolv AI BTEs Serial Numbers: [id number] Battery size: Rechargeable Date Issued: 02/13/2022 AND Hearing aids: AmSafe 13Z Series i110 BTEs Serial Numbers: [id number] Battery size: 13 Date Issued: 11/04/2014 Hearing aid check: Both hearing aids were cleaned and checked. Replaced size 3 thin tube with a size 4 thin tube. [place] reported better fit. Right Z series is confirmed , no power on audibles or amplification heard after battery was replaced. The right Z Series will be sent to dietitian assistant for repair and will be mailed directly to via [facility]. Otoscopy: Clear canal left ear, non-occluding cerumen deep in right ear canal. Tympanometry revealed a type A tympanogram. Plan: will follow up as needed. /luly/ SCOTT CASTANON Audiology Health Upper Cutter Machine Signed: 04/27/2024 10:20 /luly/ TERE Agustin, [facility]-A CHIEF, AUDIOLOGY/CALCULATION REVIEWER Cosigned: 04/27/2024 11:02 SCOTT CASTANON [facility]
--- OUTSIDE RECORDS SUMMARY | 2025-01-25 10:25 | XMS_ITS | Continuity of Care Document ---
Author Name [facility] Organization [facility] Care Team Providers Care Bun Machine Operator Name Role Phone [facility] Unavailable Unavailable Problems Combined list of problems [...] and adjustment of hearing aid [facility] [place] [facility] Medications Combined [...] TABLET BY MOUTH EVERY MORNING [facility]AL ACTIVE [facility] IBUPROFEN TAB TAKE BY MOUTH NEEDED [facility]AL ACTIVE [facility] LISINOPRIL 40MG TAB TAKE ONE TABLET BY MOUTH DAILY ORAL ACTIVE [facility] SIMVASTATIN 40MG TAB TAKE ONE-HALF TABLET BY MOUTH DAILY ORAL ACTIVE [facility] 2013 [facility] [place] [facility] [facility] Immunizations Combined list of available immunizations from the Department of Defense and Veterans Affairs facilities. Immunization Series Date Given Administered By Site Reaction Lot Number CVX Code Drug Graduate Internship Status Comments Source COVID-19 (MODERNA), MRNA, LNP-S, PF, 100 MCG/0.5 ML DOSE 2 2020 207 complet ed MOD; [id number]; 1 [facility] [place] [facility] [facility] COVID-19 (MODERNA), MRNA, LNP-S, PF, 100 MCG/0.5 ML DOSE 1 2020 207 complet ed MOD; [id number]; 1 [facility] [place] [facility] INFLUENZA, INJECTABLE, MDCK, PRESERVATIVE FREE, QUADRIVALENT 2018 171 complet ed 02, [facility]. Administe red by: [facility] Clinician (NPI=Not Provided) . Partner 6 Lot#: [id number] Mfr: SEQIRUS [facility] [place] [...] 88 complet ed [facility] Encounters Combined list of: 1) Encounters from Department of Veterans Affairs facilities going backup to the last 18 months, not all [place] inpatient encounters are included; 2) Encounters from the Department of Defense facilities going backup to 280 months. Location Location Details Encounter Type Encounter Number Reason For Visit Attending Provider ADM Date DC Date Status Disposition Source [facility] [place] [facility] Outpatient Encounter [id number] 09/06 [facility] [place] [facility] HEARING AID REPAIR/MOD IFYING [id number] Diagnos is: ICD-10- CM Z46.1 Encount er for fitting and adjustm ent of hearing aid KATIE FISCHER L 03/03 [facility] [place] [facility] [place] [facility] HEARING AID REPAIR/MOD IFYING [id number] Diagnos is: ICD-10- CM Z46.1 Encount er for fitting and adjustm ent of hearing aid AALIYAH,KATIE L 04/27 [facility] Social History Combined list of available smoking, tobacco, and other social history from Department of Defense and Veterans Affairs facilities. Social History Type Response Date Comment Source Tobacco smoking status NHIS QUIT TOBACCO USE > 7 YEARS AGO 12/30/2017 [facility] [place] [facility] History of tobacco use QUIT TOBACCO USE > 7 YEARS AGO 11/12/2016 [facility] [place] [facility] History of tobacco use QUIT TOBACCO USE > 7 YEARS AGO 09/14/2015 stopped in the 80's [facility] [place] [facility] History of tobacco use HISTORY OF SMOKING 08/05/2005 Smoke free since 1986 [facility] [place] [facility] History of tobacco use HISTORY OF SMOKING 06/27/2004 smoke-free since 1987. [facility] [place] [facility] History of tobacco use HISTORY OF SMOKING 07/13/2003 Quit in 1983 [facility] [place] [facility] History of tobacco use QUIT TOBACCO USE > 7 YEARS AGO 01/05/2002 [place] [facility]
--- OUTSIDE RECORDS SUMMARY | 2025-01-25 10:25 | XMS_ITS ---
Author Name [facility] [place] Organization [facility] [place] Address [address] [place] [address] Care Team Providers Care Weight Reducing Technician Name Role Phone DOUG CONTRERAS Primary Care [...] Anthony's Name Patient's Relationship to Policy Anthony [facility] ION TECH [facility]AN Jul 09, 2012 [id number] LAYNE SMART PATIENT MEDICARE (R) MEDICARE (M) PART A Dec 07, 2010 PART A [id number] LAYNE SMART PATIENT Selected Encounter This section includes the information on record at [place] for the Encounter. Date/Time Encounter Type Encounter [...] and adjustment of hearing aid RAS CASTANON [facility] Mar 03, 2024 02:56 PM SECONDARY Sensorineural hearing loss, bilateral RAS CASTANON [facility] Plan of Treatment: Future Appointments (+ 6 months) and Future Tests (+/- 45 days) The Plan of Treatment section includes future care activities for the patient from all [place] [facility]. This section includes future appointments and future orders which are active, pending or scheduled. Future Appointments This section includes appointments that were scheduled to occur 6 months from the date of the Encounter, up to a maximum of 20 appointments. The data comes from all [place] treatment facilities. Appointment Date/Time Appointment Type Appointme nt Facility Name Apr 27, 2024 09:00 AM AMBULATORY - REHAB MEDICIN E [facility] Social History: Smoking Status (Most current) and Tobacco Use (All prior to encounter date) This section includes the most current, and the historical, smoking and tobacco- related health factors from the [place] facility where the Encounter took place. Current Smoking Status This section includes the most current smoking, or tobacco-related health factor, from the [place] facility where the Encounter took place. Date/Time Current Smoking Status Comment [facility] Dec 30, 2017 02:22 PM QUIT TOBACCO USE > 7 YEARS AGO [facility] Tobacco Use History This section includes a history of the smoking, or tobacco-related health factors, that were collected on or before the date of the Encounter. The data comes from the [place] facility where the Encounter took place. Date/Time Smoking Status/Tobac co Use Comment Facility Nov 12, 2016 02:58 PM QUIT TOBACCO USE > 7 YEARS AGO [facility] Sep 14, 2015 04:22 PM QUIT TOBACCO USE > 7 YEARS AGO stopped in the 's [facility] Aug 05, 2005 03:05 PM HISTORY OF SMOKING Smoke free since 1986 [facility] Jun 27, 2004 03:51 PM HISTORY OF SMOKING smoke-free since 1987. [facility] Jul 13, 2003 03:26 PM HISTORY OF SMOKING Quit in 1983 [facility] Jan 05, 2002 02:30 PM QUIT TOBACCO USE > 7 YEARS AGO [facility] Encounter Notes: All associated encounter notes This section contains the clinical notes associated to the Encounter. Date/Time Encounter Note(s) Provider Source Mar 03, 2024 08:04 AM AUDIOLOGY NOTE: LOCAL TITLE: AUDIOLOGY [facility] STANDARD TITLE: AUDIOLOGY NOTE DATE OF NOTE: MAR 03, 2024@08:04 ENTRY DATE: MAR 03, 2024@08:04:43 AUTHOR: SCOTT CASTANON COSIGNER: TERE FISCHER URGENCY: STATUS: COMPLETED March 03, 2024 History/Background: [employer] was seen for a hearing aid follow up, unaccompanied. [employer] [place] scheduled today's appointment reporting his left hearing aid is not working. stated he sent his 2015 Z Series out for repair and since he received them back they have been loud and giving feedback Hearing aids: [employer] Evolv AI BTEs Serial Numbers: [id number] Battery size: Rechargeable Date Issued: 02/13/2022 AND Hearing aids: [employer]io 13Z Series i110 BTEs Serial Numbers: [id number] Battery size: 13 Date Issued: 11/04/2014 Hearing aid check: Both hearing aids were cleaned and checked. Replaced size 3 thin tubes and aries covers on all 4 hearing aids. Biologic check was good for EVOLV aids. Z Series were tinny with high pitches. Z Series were connected to [employer] and 03/02/2015 settings were restored to hearing aids. Listening inspection was good. Otoscopy: Clear canal left ear, nearly occluding cerumen right ear. Advised to contact pcp team for cerumen removal. Battery supply was ordered per Veterans request. Plan: will follow up as needed. Suicide Screen: C-SSRS Screening [place]-Suicide Severity Rating Scale (C-SSRS Screener) 1. Over [...] other questions. /luly/ SCOTT CASTANON Audiology Health Painter Helper Spray Signed: 03/03/2024 14:58 /luly/ TERE Agustin, JOSE JUAN-A CHIEF, AUDIOLOGY/SALES APPOINTMENT COORDINATOR Cosigned: 03/03/2024 15:07 SCOTT CASTANON [facility]
== END 2025-01-25 10:19 | disposition home or self-care (01) ==
PROVIDERS: PCP Internal Medicine; Visit Provider Internal Medicine
DX: I10 Essential (primary) hypertension (principal); E78.5 Hyperlipidemia, unspecified; E87.1 Hypo-osmolality and hyponatremia; M25.561 Pain in right knee

== ENCOUNTER 2025-01-25 09:30 | Outpatient (REF) | payer OTHER, SELFPAY ==
--- NOTE | ~2025-01-25 | XR_ITS ---
EXAMINATION: XR KNEE, RIGHT CLINICAL INFORMATION: M25.561 - Pain in right knee COMPARISON: None available. TECHNIQUE: Two views of the right knee. FINDINGS: Normal bone mineralization. No fracture or dislocation. Moderate to severe medial compartment joint space narrowing with compensatory widening of the lateral compartment, and mild varus angulation of the joint. Diffuse chondrocalcinosis is present suggesting CPPD. There is spurring of the tibial spines. Mild degenerative arthrosis in the patellofemoral joint. There is a superior patellar enthesophyte present. No evidence of joint effusion. Soft tissues demonstrate vascular calcifications. XR/XR knee RT 2V IMPRESSION: 1. Tricompartmental arthritis, moderate to severe in the medial compartment. Mild varus angulation of the joint. 2. Diffuse chondrocalcinosis suggesting underlying CPPD. 3. Vascular calcifications in the soft tissues. Electronically signed by: Ganga Elizabeth MD 01/25/2025 10:37 AM EDT
--- OUTSIDE RECORDS SUMMARY | 2025-01-25 11:32 | XMS_ITS | Continuity of Care Document ---
Author Name [facility] Organization [facility] Care Team Providers Care Log Operations Coordinator Name Role Phone [facility] Unavailable Unavailable Problems Combined list of problems [...] and adjustment of hearing aid [facility] [place] [facility] Medications Combined [...] EVERY MORNING ORAL ACTIVE DOUG CONTRERAS 2013 [facility] HYDROCHLORO THIAZIDE 50MG/TRIAMT ERENE 75MG TAB TAKE ONE TABLET BY MOUTH EVERY MORNING ORAL ACTIVE [facility] IBUPROFEN TAB TAKE BY MOUTH NEEDED ORAL ACTIVE [facility] [place] LISINOPRIL 40MG TAB TAKE ONE TABLET BY MOUTH DAILY [facility]IVE [facility] [place] SIMVASTATIN 40MG TAB TAKE ONE-HALF TABLET BY MOUTH DAILY [facility]AL ACTIVE [facility] [place] [facility] [facility] Immunizations Combined list of available immunizations from the Department of Defense and Veterans Affairs facilities. Immunization Series Date Given Administered By Site Reaction Lot Number CVX Code Drug Arcade Game Technician Status Comments Source COVID-19 (MODERNA), MRNA, LNP-S, PF, 100 MCG/0.5 ML DOSE 2 2020 207 complet ed MOD; [id number]; 1 [facility] [place] [facility] [facility] COVID-19 (MODERNA), MRNA, LNP-S, PF, 100 MCG/0.5 ML DOSE 1 2020 207 complet ed MOD; [id number]; 1 [facility] [place] INFLUENZA, INJECTABLE, MDCK, PRESERVATIVE FREE, QUADRIVALENT 2018 171 complet ed 02, [facility]. Administe red by: [facility] Clinician (NPI=Not Provided) . Partner 6 Lot#: [id number] Mfr: SEQIRUS [facility] [place] [...] FLU,3 YRS (HISTORICAL) 2002 88 complet ed [facility] Encounters Combined list of: 1) Encounters from Department of Veterans Affairs facilities going backup to the last 18 months, not all [place] inpatient encounters are included; 2) Encounters from the Department of Defense facilities going backup to 280 months. Location Location Details Encounter Type Encounter Number Reason For Visit Attending Provider ADM Date DC Date Status Disposition Source [facility] [place] [facility] Outpatient Encounter [id number] 09/06 [facility] [place] [facility] HEAR[facility] AID REPAIR/MOD IFYING [id number] Diagnos is: ICD-10- CM Z46.1 Encount er for fitting and adjustm ent of hearing aid KATIE FISCHER L 03/03 [facility] [place] [facility] [facility] HEARING AID REPAIR/MOD IFYING [id number] Diagnos is: ICD-10- CM Z46.1 Encount er for fitting and adjustm ent of hearing aid AALIYAH,KATIE L 04/27 [facility] Social History Combined list of available smoking, tobacco, and other social history from Department of Defense and Veterans Affairs facilities. Social History Type Response Date Comment Source Tobacco smoking status NHIS QUIT TOBACCO USE > 7 YEARS AGO 12/30/2017 [facility] [place] [facility] History of tobacco use QUIT TOBACCO USE > 7 YEARS AGO 11/12/2016 [facility] [place] [facility] History of tobacco use QUIT TOBACCO USE > 7 YEARS AGO 09/14/2015 stopped in the 80's [facility] [place] [facility] History of tobacco use HISTORY OF SMOKING 08/05/2005 Smoke free since 1986 [facility] [place] [facility] History of tobacco use HISTORY OF SMOKING 06/27/2004 smoke-free since 1987. [facility] [place] [facility] History of tobacco use HISTORY OF SMOKING 07/13/2003 Quit in 1983 [facility] [place] [facility] History of tobacco use QUIT TOBACCO USE > 7 YEARS AGO 01/05/2002 [facility]
[2025-01-25 13:44] LABS: Anion Gap 12 (12-20); Blood Urea Nitrogen 18 mg/dL (9-16); Calcium 9.5 mg/dL (8.4-10.2); Carbon Dioxide 27 mmol/L (22-29); Chloride 98 mmol/L (96-108); Estimated Glomerular Filt Rate > 60; Glucose Random 90 mg/dL (60-115); Sodium 133 mmol/L (135-145)
== END 2025-01-25 09:31 | disposition home or self-care (01) ==
LOC: HO.HMGCX 09:30
PROVIDERS: PCP Internal Medicine; Visit Provider Internal Medicine
DX: I10 Essential (primary) hypertension (principal); E78.5 Hyperlipidemia, unspecified; E87.1 Hypo-osmolality and hyponatremia; M25.561 Pain in right knee; I25.10 Atherosclerotic heart disease of native coronary artery without angina pectoris; Z79.899 Other long term (current) drug therapy; Z00.00 Encounter for general adult medical examination without abnormal findings
CPT/HCPCS: 36415; 73560; 80048; 96127

== ENCOUNTER → 2025-01-25 10:22 | Outpatient (BNV) | payer OTHER, SELFPAY | PROVIDERS: PCP Internal Medicine; Visit Provider Radiology Diagnostic Radiology | DX: M17.11 Unilateral primary osteoarthritis, right knee (principal) | CPT/HCPCS: 73560 ==

== ENCOUNTER 2025-02-22 06:52 | Day surgery (SDC) | payer OTHER, SELFPAY ==
--- OUTSIDE RECORDS SUMMARY | 2025-01-25 15:03 | XMS_ITS | Continuity of Care Document ---
Author Name [facility] Organization [facility] Care Team Providers Care Clerk Cashier Name Role Phone [facility] Unavailable Unavailable Problems Combined list of problems [...] and adjustment of hearing aid [facility] [place] [facility] Medications Combined [...] EVERY MORNING ORAL ACTIVE DOUG CONTR[facility]AS [facility] HYDROCHLORO THIAZIDE 50MG/TRIAMT ERENE 75MG TAB TAKE ONE TABLET BY MOUTH EVERY MORNING [facility]AL [facility]IVE [facility] IBUPROFEN TAB TAKE BY MOUTH NEEDED ORAL ACTIVE [facility] LISINOPRIL 40MG TAB TAKE ONE TABLET BY MOUTH DAILY [facility]AL ACTIVE [facility] SIMVASTATIN 40MG TAB TAKE ONE-HALF TABLET BY MOUTH DAILY ORAL ACTIVE [facility] 2013 [facility] [place] [facility] Immunizations Combined list of available immunizations from the Department of Defense and Veterans Affairs facilities. Immunization Series Date Given Administered By Site Reaction Lot Number CVX Code Drug Barrel Brander Status Comments Source COVID-19 (MODERNA), MRNA, LNP-S, PF, 100 MCG/0.5 ML DOSE 2 2020 207 complet ed MOD; [id number]; 1 [facility] [place] COVID-19 (MODERNA), MRNA, LNP-S, PF, 100 MCG/0.5 ML DOSE 1 2020 207 complet ed MOD; [id number]; 1 [facility] [place] [facility] INFLUENZA, INJECTABLE, MDCK, PRESERVATIVE FREE, QUADRIVALENT 2018 171 complet ed 02, [facility]. Administe red by: [facility] Clinician (NPI=Not Provided) . Partner 6 Lot#: [id number] Mfr: [facility]QIRUS [facility] [place] [...] FLU,3 YRS (HISTORICAL) 2002 88 complet ed [facility] Encounters Combined list of: 1) Encounters from Department of Veterans Affairs facilities going backup to the last 18 months, not all [place] inpatient encounters are included; 2) Encounters from the Department of Defense facilities going backup to 280 months. Location Location Details Encounter Type Encounter Number Reason For Visit Attending Provider ADM Date DC Date Status Disposition Source [facility] Outpatient Encounter [id number] 09/06 [facility] [place] [facility] HE[facility]ING AID REPAIR/MOD IFYING [id number] Diagnos is: ICD-10- CM Z46.1 Encount er for fitting and adjustm ent of hearing aid KATIE FISCHER L 03/03 [facility] [place] [facility] [place] [facility] HEARING AID REPAIR/MOD IFYING [id number] Diagnos is: ICD-10- CM Z46.1 Encount er for fitting and adjustm ent of hearing aid AALIYAH,KATIE L 04/27 [facility] Social History Combined list of available smoking, tobacco, and other social history from Department of Defense and Veterans Affairs facilities. Social History Type Response Date Comment Source Tobacco smoking status NHIS QUIT TOBACCO USE > 7 YEARS AGO 12/30/[facility] [place] [facility] History of tobacco use QUIT TOBACCO USE > 7 YEARS AGO 11/12/2016 [facility] [place] [facility] History of tobacco use QUIT TOBACCO USE > 7 YEARS AGO 09/14/2015 stopped in the 80's [facility] [place] [facility] History of tobacco use HISTORY OF SMOKING 08/05/2005 Smoke free since 1986 [facility] [place] [facility] History of tobacco use HISTORY OF SMOKING 06/27/2004 smoke-free since 1987. [facility] [place] [facility] History of tobacco use HISTORY OF SMOKING 07/13/2003 Quit in 1983 [facility] [place] [facility] History of tobacco use QUIT TOBACCO USE > 7 YEARS AGO 01/05/2002 [place] [facility]
[2025-02-18 14:17] VITALS: BMI 23.1
--- NOTE | 2025-02-21 13:02 | HO.ANESPROP2 ---
Documented by User: Jessenia Martinez NP 02/21/25 13:24 HPI - Anesthesia Eval Consult details Narrative: 80yo M for Colonoscopy Follows [facility] Cardiology for CAD s/p MICHAEL 2020. Stable at 11/2024 office visit. OK to proceed with colonoscopy (plavix to be held 5 days and colo should be done on asa) REPLACED BY [facility] Active Problems Active Problems: All Active Problems Right knee pain (Acute) STD (male) (Acute) Constipation (Acute) Right rib fracture (Acute) Allergic rhinitis (Acute) Sprain of shoulder, right (Acute) Shoulder strain (Acute) Sinusitis (Acute) Osteoarthritis of left shoulder (Acute) Upper respiratory tract infection (Acute) Sprain of left shoulder (Acute) Edema (Acute) Dysplastic nevus (Acute) Annual physical exam (Acute) Hyponatremia (Acute) Impacted cerumen, right ear (Acute) S/P colonoscopic polypectomy (Acute) S/P coronary angioplasty (Acute) CAD (coronary artery disease) (Acute) Hyperglycemia (Acute) Hyperlipidemia (Acute) Hypertension (Acute) Biceps tendinitis (Acute) Anemia (Chronic) Past Medical History Medical History (Updated 02/22/25 @ 07:30 by Mari Carpenter RN) Bilateral cataracts CAD (coronary artery disease) Hyperglycemia Anemia Herniated disc Hernia Hyperlipidemia Hypertension Normocytic anemia Family History Family History Father Pneumonia Mother Diabetes mellitus Sister No problems noted. Daughter Mental health disorder Surgical History Surgical History (Updated 02/22/25 @ 07:30 by Mari Carpenter RN) History of surgery S/P colonoscopic polypectomy Social History Social History Household Members: Children and Other Household Members Other:: gradchild Housing: House Alcohol intake: current Alcohol intake frequency: a few times a week Alcohol type: beer Patient Tobacco Use Status: Former Tobacco user Years Smoked: 30+ e-Cigarette/Vaping Use: Never Used Second Hand Smoke Exposure: No Use of substances other than those prescribed or required for medical reasons: No Are you DNR?: No Advance Directives: No Advance Directives Information Provided: Yes Poor oral hygiene: No service: Yes Current occupational status: employed 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 Cognitive needs: No Hearing needs: Yes Vision needs: No Meds Allergies Allergy/AdvReac Type Severity Reaction Status Date / Time No Known Allergies Allergy Verified 01/25/25 09:37 [No Known Allergies*] Home Medications ?Medication ?Instructions ?Recorded ?Confirmed ?Last Taken ?Type aspirin 81 mg tablet,delayed 81 mg PO DAILY 02/18/25 02/18/25 02/21/25 History release Exam Height,Weight and Vital Signs: Height 5 ft 8 in Weight 68.946 kg Pertinent Lab Results Pertinent Lab Results: Laboratory Tests 05/04/24 01/25/25 06:08 10:23 WBC 5.6 Hgb 11.4 L Hct 33.2 L Plt Count 145 L Sodium 133 L Potassium 4.0 Chloride 98 Carbon Dioxide 27 BUN 18 H Creatinine 0.81 Narrative Narrative: EKG 11/2024 Details: Sinus rhythm 63 beats per minute, normal axis, nonspecific T-wave changes, QTC 401 milliseconds. Assessment and Plan Assessment Anesthesia Assessment: Chart Reviewed Documented by User: Ruel Beckham MD 02/22/25 07:57 PMFSH Past Medical History Medical History (Updated 02/22/25 @ 07:30 by Mari Carpenter RN) Bilateral cataracts CAD (coronary artery disease) Hyperglycemia Anemia Herniated disc Hernia Hyperlipidemia Hypertension Normocytic anemia Family History Family History Father Pneumonia Mother Diabetes mellitus Sister No problems noted. Daughter Mental health disorder Family history of problems with anesthesia: No Surgical History Surgical History (Updated 02/22/25 @ 07:30 by Mari Carpenter RN) History of surgery S/P colonoscopic polypectomy History of Problems with Anesthesia: No Social History Social History Household Members: Children and Other Household Members Other:: gradchild Housing: House Alcohol intake: current Alcohol intake frequency: a few times a week Alcohol type: beer Patient Tobacco Use Status: Former Tobacco user Years Smoked: 30+ e-Cigarette/Vaping Use: Never Used Second Hand Smoke Exposure: No Use of substances other than those prescribed or required for medical reasons: No Are you DNR?: No Advance Directives: No Advance Directives Information Provided: Yes Poor oral hygiene: No service: Yes Current occupational status: employed 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 Cognitive needs: No Hearing needs: Yes Vision needs: No Meds Allergies Allergy/AdvReac Type Severity Reaction Status Date / Time No Known Allergies Allergy Verified 01/25/25 09:37 [No Known Allergies*] Home Medications ?Medication ?Instructions ?Recorded ?Confirmed ?Last Taken ?Type aspirin 81 mg tablet,delayed 81 mg PO DAILY 02/18/25 02/18/25 02/21/25 History release Exam Airway Mallampati Class: II TM Dist: >3cm Neck ROM: Full Assessment and Plan Assessment Anesthesia Assessment: Anesthesia Plan Discussed Final Anesthetic Review Family History of Problems with Anesthesia: No History of Problems with Anesthesia: No NPO: Yes ASA Class: III Final Preanesthetic Review: No Changes in Pt Med Stat, Meds/Allgs Chart Reviewed, Consent Obtained/Reviewed and Anes Risks/Benef Reviewed Patient Risk: Intermediate Procedure Risk: Low Anesthetic Plan Anesthetic Plan: TIVA Disposition: Standard PACU
[2025-02-22 07:34] VITALS: BMI 21.9
[2025-02-22 07:38] VITALS: BP 129/45; PULSE 57; RESP 16; TEMP 36.2; O2SAT 99
[2025-02-22] MEDS: Lactated Ringers 1,000 ML 100 ML IVCONT (07:52)
--- NOTE | 2025-02-22 08:04 | P.HPSUR_ITS ---
Pre-Procedural Eval Section A - 24 Hr Update-Section A only Date of Service: 02/22/25 Section B - Complete if H&P > 30 days Chief Complaint: screening Relevant Family History (Specify if Yes): No Relevant Social History: None Present Medications: see Short Stay Collaborative assessment Medical History: Significant History (Anemia Hyperglycemia Herniated disc Hernia Hyperlipidemia Hypertension Normocytic anemia) History of Previous Operations: Relevant previous surgery/procedure and date(s) ( S/P colonoscopic polypectomy) Allergies: Allergies Allergy/AdvReac Type Severity Reaction Status Date / Time No Known Allergies Allergy Verified 01/25/25 09:37 [No Known Allergies*] Review of Systems Sugical H&P ROS: Negative: Constitution, Cardiovascular, Respiratory, Neurological, Psychiatric, Hem-Onc, Allergic/Immunologic, Gastrointestinal, Genitourinary, Musculoskeletal, Integumentary, Endocrine and Eyes/Ears/Nose/Throat Exam Surgical H&P Exam: Normal: HEENT, Normal: Heart, Normal: Lungs, Normal: Ex tremities, Normal: Abdomen, Normal: Skin and Normal: Neurological Plan Diagnosis/Plan: Unchanged I have reviewed the history and physical and performed a pertinent physical examination on my patient. No changes have occurred unless specified. Time Spent With Patient Time: Total time managing care of this patient today ____ minutes.
--- NOTE | 2025-02-22 08:30 | W.PM.OPN ---
Operative Note Operative Note Date of Service: 02/22/25 Narrative: Operative Information Procedure Description: Colonoscopy Indication: hx of polyps Anesthesia: MAC COLONOSCOPY Instrument: Olympus variable stiffness pediatric scope 190L Colonoscopy Monitoring: Vital signs and clinical assessment, continuous EKG monitoring, Pulse oximetry, Carbon Dioxide monitoring and blood pressure monitoring were done throughout the procedure. Colon withdrawal time was 7 minutes. Procedure: The patient was placed in the left lateral decubitis position and pre-procedure medications were administered. After a digital rectal examination of the ano-rectum, the video colonoscope was inserted into the rectum and advanced through the colon to the cecum/TI. The colonoscope was slowly withdrawn in a retrograde panoramic fashion and the colon mucosa was carefully examined including a retroflexed view of the rectum. Findings and interventions are described below. Procedure Difficulty: easy Findings: Terminal Ileum-normal Cecum:normal Right sided retroflexion- normal Ascending Colon: normal Transverse Colon -normal Descending Colon:normal Sigmoid Colon: mild diverticulosis Rectum: Retroflexion with small internal hemorrhoids seen, grade I Anorectum - normal Intervention: none Colon preparation: [place] Bowel Preparation Scale Right colon; 2 Transverse colon: 2 Left colon; 2 (0 = Unprepared colon segment with mucosa not seen due to solid stool that cannot be cleared. 1 = Portion of mucosa of the colon segment seen, but other areas of the colon segment not well seen due to staining, residual stool and/or opaque liquid. 2 = Minor amount of residual staining, small fragments of stool and/or opaque liquid, but mucosa of colon segment seen well. 3 = Entire mucosa of colon segment seen well with no residual staining, small fragments of stool or opaque liquid) Impression and Post Procedure Diagnosis: diverticulosis internal hemorrhoids Plan: High fiber diet leaflet Avoid straining at stool, epsom salts and sitz bath, anusol supps or cream Repeat Colonoscopy in 5 years if health allows due to prior hx of polyps or earlier if clinically indicated Above findings were reviewed with the patient and relevant handouts were provided if indicated.
[2025-02-22 08:34] VITALS: BP 66/35; PULSE 55; RESP 14; TEMP 36.6; O2SAT 97
[2025-02-22 08:39] VITALS: BP 100/46; PULSE 63; RESP 14; O2SAT 97
[2025-02-22 08:49] VITALS: BP 113/91; PULSE 61; RESP 16; TEMP 36.6; O2SAT 100
== END 2025-02-22 09:28 | disposition home or self-care (01) ==
PROVIDERS: PCP Internal Medicine; Visit Provider Internal Medicine Gastroenterology
PROC: 0DJD8ZZ Inspection of Lower Intestinal Tract, Via Natural or Artificial Opening Endoscopic (ICD-10-PCS; CPT 45378; principal; 2025-02-22 08:20)
DX: Z12.11 Encounter for screening for malignant neoplasm of colon (principal); Z86.0101 Personal history of adenomatous and serrated colon polyps; K57.30 Diverticulosis of large intestine without perforation or abscess without bleeding; K64.0 First degree hemorrhoids; I25.10 Atherosclerotic heart disease of native coronary artery without angina pectoris; Z95.5 Presence of coronary angioplasty implant and graft; I10 Essential (primary) hypertension; R73.9 Hyperglycemia, unspecified; E78.5 Hyperlipidemia, unspecified; D64.9 Anemia, unspecified; Z79.82 Long term (current) use of aspirin; Z87.891 Personal history of nicotine dependence
CPT/HCPCS: 45378; J2003; J2704

== ENCOUNTER → 2025-02-22 06:52 | Outpatient (BNV) | payer OTHER, SELFPAY | PROVIDERS: PCP Internal Medicine; Visit Provider Internal Medicine Gastroenterology | DX: Z12.11 Encounter for screening for malignant neoplasm of colon (principal); Z86.0100 Personal history of colon polyps, unspecified; K57.30 Diverticulosis of large intestine without perforation or abscess without bleeding; K64.0 First degree hemorrhoids | CPT/HCPCS: 45378 ==

== ENCOUNTER 2025-02-25 08:50 | Outpatient (REF) | payer OTHER, SELFPAY ==
--- NOTE | ~2025-02-25 | XR_ITS ---
CLINICAL HISTORY: M25.512 - Pain in left shoulder 3 view left shoulder Comparison: None provided Findings: Bones intact. No dislocations. There are degenerative changes in the AC joint. Positioning of the humeral head suggests chronic rotator cuff pathology. No erosions. No radiopaque foreign body. IMPRESSION: 1. No acute findings This document has been electronically signed by: William Patel MD on 02/26/2025 08:55:59
== END 2025-02-25 08:51 | disposition home or self-care (01) ==
LOC: HO.HOSX 08:50
PROVIDERS: Visit Provider Physician Assistant
DX: M19.012 Primary osteoarthritis, left shoulder (principal); M25.512 Pain in left shoulder
CPT/HCPCS: 20610; 73030; J1010; J2003

== ENCOUNTER 2025-02-25 14:40 | Outpatient (AMB) | payer OTHER, SELFPAY ==
--- NOTE | 2025-02-25 14:42 | MHC.OFFVIS ---
Intake Visit Reasons: INJ-Left shoulder Last 08/11/24 Intake Note: Zander is a 79 year old male who presents today for a left shoulder injection, last injetion on 08/13/24. Patient reports he found relief with his last left shoulder injection and would like to repeat today. Allergies No Known Allergies (No Known Allergies*) Allergy (Verified 02/25/25 14:58) HPI HPI INJ-Left shoulder Last 08/11/24: Details: 80-year-old gentleman returns to the office today for a follow-up left shoulder status post injection on 08/11/2024. He states the injections are helpful with pain however he continues to have limitations in his function. [facility] Medical History Bilateral cataracts CAD (coronary artery disease) Hyperglycemia Anemia Herniated disc Hernia Hyperlipidemia Hypertension Normocytic anemia Surgical History History of surgery S/P colonoscopic polypectomy Family History Father Pneumonia Mother Diabetes mellitus Sister No problems noted. 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 He is able to bring the hand to the back of his head. Unable to reach overhead . NVI. ? Office Procedures AMB Joint Injection/Aspiration Joint Injection/Aspiration Primary Site: left shoulder Prep: site was prepped using aseptic technique, ethochloride spray was applied and injection warnings given Injected: 80 mg of, DepoMedrol, with 8 mL of, 1% plain lidocaine and in the subcromial space Approach Used: posterolateral Procedure: The patient tolerated the procedure well and there was some relief with the local anesthesia Coding 79117 - Glenohumeral/Tronchanteric Bursa/Intraarticular Procedure code (CPT) selection complete Results Reviewed Results Reviewed: Xrays were obtained in the office today and personally reviewed by me of the left shoulder is significant for OA Assessment & Plan Assessment & Plan (1) Osteoarthritis of left shoulder: Code(s): M19.012 - Primary osteoarthritis, left shoulder Category: Medical Qualifiers: Osteoarthritis type: primary Qualified Code(s): M19.012 - Primary osteoarthritis, left shoulder Plan We discussed options today, which include steroid injection. The patient did consent to move forward with the left shoulder injection, which was tolerated well. I recommended rest, ice, and elevation and OTC anti-inflammatories as needed for discomfort. If symptoms persist or worsens over the next 6-8 weeks, patient will contact the office, otherwise follow-up as needed. Orders: Orders XR shoulder LT min 2V Today M25.512 - Pain in left shoulder Coding Level of Care Code Est Pt Level 3 (69402) Complex EM visit Add On G2211 Diagnoses Primary osteoarthritis of left shoulder M19.012 Osteoarthritis type: primary CPT Codes Coding - Joint 7: 12219 - Glenohumeral/Tronchanteric Bursa/Intraarticular ([id number])
== END 2025-02-25 15:07 | disposition home or self-care (01) ==
LOC: HO.HOS 14:41
PROVIDERS: PCP Internal Medicine; Visit Provider Physician Assistant
DX: M19.012 Primary osteoarthritis, left shoulder (principal)
CPT/HCPCS: 20610; 99213

== ENCOUNTER → 2025-02-25 14:43 | Outpatient (BNV) | payer OTHER, SELFPAY | PROVIDERS: Visit Provider Specialist | DX: M25.512 Pain in left shoulder (principal) | CPT/HCPCS: 73030 ==

== ENCOUNTER 2025-03-15 13:53 | Outpatient (RCR) | payer OTHER, SELFPAY ==
--- NOTE | 2025-03-15 14:47 | MHC.PT.EP ---
[facility] [place] Office [place] Office [place] Office [address] [place]edar Arte[place] [address] [phone] F: [phone] F: [phone] F: [phone] F: [phone] Physical Therapy Plan of Care Date of Evaluation: 03/15/25 Date of Surgery: n/a Diagnosis: R knee pain Assessment: Patient is a 80 year old male presenting to PT with complaints of pain in his R knee. Pt reports onset of pain began November 2024 due to insidious onset. He presents today with impairments in pain, knee ROM, strength. 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 Pt expresses halfway goal of reducing pain, and is motivated to work towards this in PT. Clinical presentation today is most consistent with signs and sx associated with R knee pain. He would like to work on an HEP at home vs come in to the clinic for scheduled appointments due to his high copay. I feel this is reasonable and therefore will provide him with an HEP today. I will also leave his chart open for 30 days incase anything comes up. These problems limit the patient with the following functional activities: stair negotiation. The prescribed treatment plan of care is medically necessary. Co-morbidities of hx stent and skin CA surgery were identified and taken into considerations of plan of care. Pt was educated on HEP, role of PT, prognosis, POC. Frequency and Duration: The patient will be seen pt wants HEP Short Term Goals: Pt will be independent in HEP in 1 visit. Correction Goals: Treatment Plan: Modalities to reduce pain, spasms and effusion. Manual therapy to restore motion and function. Therapeutic exercise to improve strength and flexibility. Neuromuscular re-education for posture and balance. Therapeutic activities to return to functional activities of daily living. Electronically signed by: Olga Peace, PT, DPT, ATC Please sign and return to therapist. Thank you for your referral.
--- NOTE | 2025-04-29 14:20 | MHC.PT.DC ---
[facility] [place] Office [place] Office [place] Office [address] 140 [facility] [phone] F: [phone] F: [phone] F: [phone] F: [phone] Physical Therapy Discharge Report Diagnosis: R knee pain Date of Surgery: n/a Date of Evaluation: 03/15/25 Date of Discharge: 04/29/25 Treatments to Date: 1 Cancellations to Date: 0 No Shows to Date: 0 Discharge Status: Patient Elected to Stop Discharge Summary: Pt did not return to PT after the eval which was greater than 30 days ago, so therefore to be d/c per policy. Electronically signed by: Olga Peace, PT, DPT, ATC Please sign and return to therapist. Thank you for your referral.
== END 2025-04-29 14:21 | disposition home or self-care (01) ==
LOC: HO.PTCHIC 13:53
PROVIDERS: PCP Internal Medicine; Visit Provider Internal Medicine
DX: M25.561 Pain in right knee (principal)
CPT/HCPCS: 97110; 97161

== ENCOUNTER 2025-05-19 10:18 | Outpatient (AMB) | payer OTHER, SELFPAY ==
[2025-05-19 10:23] VITALS: BP 106/66; PULSE 85; RESP 19; TEMP 36.8; O2SAT 94; BMI 22.8
--- NOTE | 2025-05-19 10:23 | MHC.PC.OV ---
Vital Signs 05/19/25 10:23 Height 5 ft 8 in Weight 150 lb BMI 22.8 BP 106/66 Blood Pressure Location Lt brachial Position Sitting Respiration 19 Pulse 85 Pulse Source Pulse Oximeter Temp 98.2 F Temp Source Oral Pulse Oximetry (%) 94 Oxygen Delivery Method Room Air Intake Visit Reasons: PE Intake Note: Pt is here today for PE. Allergies No Known Allergies (No Known Allergies*) Allergy (Verified 05/19/25 10:31) Medication List - Last Reconciled 05/19/25 by Hollie Starks MD atenolol (Tenormin) 50 mg PO DAILY atorvastatin (Lipitor) 40 mg PO DAILY clopidogrel 75 mg PO DAILY lisinopril (Zestril) 40 mg PO DAILY sildenafil (Viagra) 100 mg PO DAILY PRN triamterene-hydrochlorothiazid 37.5-25 mg 1 cap PO QAM Tobacco use date assessed: 05/19/25 Fall risk assessment: No Falls in past year Last assessed Fall Risk: 05/19/25 Dental Screening Dental Screen Date: 01/25/25 HPI PE HPI Details Patient presents for the follow-up. Hypertension and hyperlipidemia controlled on current medications. Patient has been taking clopidogrel but not an aspirin for history of LAD MICHAEL placement 4 years ago. Patient is established with [facility] and has an appointment coming up. Patient denies angina dyspnea on exertion PND orthopnea palpitations. Patient complains of chronic persistent right knee pain worse when walking up and down the stairs. He denies any joint swelling. [facility] Medical History (Updated 05/20/25 @ 08:40 by Hollie Starks MD) CAD (coronary artery disease) Bilateral cataracts Hyperglycemia Anemia Herniated disc Hernia Hyperlipidemia Hypertension Normocytic anemia Surgical History (Updated 05/20/25 @ 08:40 by Hollie Starks MD) History of surgery S/P colonoscopic polypectomy Family History Father Pneumonia Mother Diabetes mellitus Sister No problems noted. 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 1. Little interest or pleasure in doing things: not at all 2. Feeling down, depressed, or hopeless: not at all 3. Trouble falling or staying asleep, or sleeping too much: not at all 4. Feeling tired or having little energy: not at all 5. Poor appetite or overeating: not at all 6. Feeling bad about yourself - or that you are a failure or have let yourself or your family down: not at all 7. Trouble concentrating on things, such as reading the newspaper or watching television: not at all 8. Moving or speaking so slowly that other people could have noticed. Or the opposite - being so fidgety or restless that you have been moving around a lot more than usual: not at all 9. Thoughts that you would be better off or of hurting yourself in some way: not at all Total score: 0 Depression Screening Interpretation: Negative Depression Screening Done: Yes Source: Developed by Drs. Efrain Nelson, Kathleen Strong, Matt Mason and colleagues, with an educational jamila from [email or web address]. Thrive Questionnaire Date Thrive assessed: 05/19/25 What is your living situation today?: I have a steady place to live Within the past 12 months, did the food you bought not last and you didn't have the money to get more?: Never true Within the past 12 months, did you worry whether your food would run out before you got money to buy more?: Never true Do you have trouble paying for medicines?: No Do you have trouble getting transportation to medical appointments?: No Do you have trouble paying your heating and electricity bill?: No Do you have trouble taking care of your child, family member or friend?: No Do you have trouble with day-to-day activities such as bathing, preparing meals, shopping, managing finances, etc.?: No Are you currently unemployed and looking for a job?: No Are you interested in more education?: No Please select the resources that you would like help with: None Currently or been in a relationship where the following occur: No concerns reported THRIVE Score: 0 AUDIT C Alcohol Use Questionnaire (AUDIT-C) 1. How often do you have a drink containing alcohol?: 2-4 times a month 2. How many drinks containing alcohol do you have on a typical day when you are drinking?: 1 or 2 3. How often do you have six or more drinks on one occasion?: Never Total Score: 2 MARLEY-7 AMB Questionnaire MARLEY-7 Date MARLEY - 7 assessed: 05/19/25 Feeling nervous, anxious, or on edge: 0 = Not at all Not being able to stop or control worryin = Not at all Worrying too much about different things: 0 = Not at all Trouble relaxin = Not at all Being so restless that it is hard to sit still: 0 = Not at all Becoming easily annoyed or irritable: 0 = Not at all Feeling afraid as if something awful might happen: 0 = Not at all Total MARLEY-7 score (0-4 normal; 5-9 mild; 10-14 moderate; 15-21 severe): 0 Source: Developed by Drs. Efrain Nelson, Kathleen Strong, Matt Mason and colleagues, with an educational jamila from [email or web address]. MARLEY-7 Assessment Billing MARLEY-7 Assessment Tool: MARLEY-7 Assessment 95850 Review of Systems Const All systems reviewed & are unremarkable except as noted in HPI and below Eyes Reports no additional complaints ENT Reports no additional complaints Card Reports no additional complaints Resp Reports no additional complaints GI Reports no additional complaints Reports no additional complaints Physical exam (Primary Care) Vital Signs: Last Vital Signs Temp 98.2 F 05/19/25 10:23 Pulse 85 05/19/25 10:23 Resp 19 05/19/25 10:23 BP 106/66 05/19/25 10:23 Pulse Ox 94 05/19/25 10:23 Oxygen Delivery Method Room Air 05/19/25 10:23 BMI result Body Mass Index 22.8 Tobacco/Smoking Status: Tobacco use Status Tobacco use date assessed 05/19/25 05/19/25 10:23 Patient Tobacco Use Status Former Tobacco user 05/19/25 10:23 e-Cigarette/Vaping Use Never Used 05/19/25 10:23 PHQ-9: PHQ-9 Score PHQ-9: Total score 0 05/19/25 10:33 Depression Screening Interpretation: Negative Thrive Assessment: Date of Thrive Assessment Date Thrive assessed 05/19/25 05/19/25 10:47 Currently or been in a relationship where the following occur: No concerns reported Const General: no acute distress HENMT Head: Yes normal to inspection Ears: hearing grossly normal bilaterally Face and sinus: Yes normal facial exam Mouth: Normal oral and palatal mucosa present Eyes General: appearance normal, both eyes and all related structures Neck Neck: Yes no lymphadenopathy and Yes supple Resp Effort & Inspection: normal respiratory effort Auscultation: clear to auscultation bilaterally Cardio Rhythm: regular rhythm Heart sounds: S1 normal heart sound present and S2 normal heart sound present GI Inspection: Yes normal to inspection Palpation (GI): Soft to palpation Percussion: Yes normal to percussion Auscultation: normal bowel sounds Extrem Other: There is decreased range of motion and crepitus in the right knee more than left General: Yes no clubbing, cyanosis or edema Coding Level of Care Code Est Pt Prev Care >65y(38076) Diagnoses Right knee pain M25.561 Hypertension I10 Hyperlipidemia E78.5 Annual physical exam Z00.00 CAD (coronary artery disease) I25.10 Additional Codes MARLEY-7 Assessment Billing - MARLEY-7 Assessment Tool: MARLEY-7 Assessment 64195 ([id number]) Assessment & Plan Assessment & Plan (1) Right knee pain: Comment: 01/2025 moderate to severe osteoarthritis in medial compartment Code(s): M25.561 - Pain in right knee Category: Medical Plan: patient will be referred to orthopedic surgeon (2) Hypertension: Comment: Stable Code(s): I10 - Essential (primary) hypertension Category: Medical Plan: Continue current medications (3) Hyperlipidemia: Comment: Patient could not tolerate 80 mg of atorvastatin Code(s): E78.5 - Hyperlipidemia, unspecified Category: Medical Plan: Continue statin, (4) Annual physical exam: Code(s): Z00.00 - Encounter for general adult medical examination without abnormal findings Category: Medical Plan: Well-balanced diet regular physical activity discussed with the patient. He will have a fasting blood work today (5) CAD (coronary artery disease): Comment: silent ischemia. 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 He has FFR positive mid LAD stenosis which is collateralizing the right coronary artery. s/p MICHAEL placement 11/2020 Code(s): I25.10 - Atherosclerotic heart disease of [place] coronary artery without angina pectoris Category: Medical Plan: Follow-up with cardiology. Unclear why the patient is not on aspirin but on clopidogrel he will discuss it with his Panel Installer Orders: Orders Comprehensive [place]. Panel Fast Today E78.5 - Hyperlipidemia, unspecified, I10 - Essential (primary) hypertension, R73.9 - Hyperglycemia, unspecified, Z00.00 - Encounter for general adult medical examination without abnormal findings UA w Microscopic Today E78.5 - Hyperlipidemia, unspecified, I10 - Essential (primary) hypertension, R73.9 - Hyperglycemia, unspecified, Z00.00 - Encounter for general adult medical examination without abnormal findings Complete Blood Count Auto Diff 6 Months E78.5 - Hyperlipidemia, unspecified, I10 - Essential (primary) hypertension Lipid Panel Today E78.5 - Hyperlipidemia, unspecified, I10 - Essential (primary) hypertension, R73.9 - Hyperglycemia, unspecified, Z00.00 - Encounter for general adult medical examination without abnormal findings Complete Blood Count Auto Diff Today E78.5 - Hyperlipidemia, unspecified, I10 - Essential (primary) hypertension, R73.9 - Hyperglycemia, unspecified, Z00.00 - Encounter for general adult medical examination without abnormal findings PSA,Total (Free>4and<10) Today E78.5 - Hyperlipidemia, unspecified, I10 - Essential (primary) hypertension, R73.9 - Hyperglycemia, unspecified, Z00.00 - Encounter for general adult medical examination without abnormal findings Comprehensive [place]. Panel Fast 6 Months E78.5 - Hyperlipidemia, unspecified, I10 - Essential (primary) hypertension Referrals Orthopedics Referral M25.561 - Pain in right knee
== END 2025-05-19 16:55 | disposition home or self-care (01) ==
PROVIDERS: PCP Internal Medicine; Visit Provider Internal Medicine
DX: M25.561 Pain in right knee (principal); I10 Essential (primary) hypertension; E78.5 Hyperlipidemia, unspecified; Z00.00 Encounter for general adult medical examination without abnormal findings; I25.10 Atherosclerotic heart disease of native coronary artery without angina pectoris

== ENCOUNTER → 2025-05-19 10:18 | Outpatient (BNVA) | payer OTHER, SELFPAY | PROVIDERS: PCP Internal Medicine; Visit Provider Internal Medicine | DX: Z00.00 Encounter for general adult medical examination without abnormal findings (principal); M17.11 Unilateral primary osteoarthritis, right knee; M25.561 Pain in right knee; I10 Essential (primary) hypertension; E78.5 Hyperlipidemia, unspecified; I25.10 Atherosclerotic heart disease of native coronary artery without angina pectoris; Z79.899 Other long term (current) drug therapy; Z13.31 Encounter for screening for depression; Z13.39 Encounter for screening examination for other mental health and behavioral disorders | CPT/HCPCS: 96127 ==

== ENCOUNTER 2025-05-20 06:01 | Outpatient (REF) | payer OTHER, SELFPAY ==
[2025-05-20 10:36] LABS: MANUAL DIFF FLAG NO
[2025-05-20 10:42] LABS: Hematocrit 30.7 % (42.0-52.0); Hemoglobin 10.6 g/dl (14.0-18.0); Imm Gran Abs Auto 0.02 X10*3/uL (0.00-0.03); Imm Gran Pct Auto 0.4 % (0.0-0.4); Lymphocytes Absolute Auto 1.3 X10*3/uL (1.2-4.9); Mean Corpuscular HGB Conc 34.5 g/dl (31.0-36.0); Mean Corpuscular Hemoglobin 30.4 pg (27.0-33.0); Mean Corpuscular Volume 88.0 fL (80.0-98.0); NRBC Abs Auto 0.000 X10*3/uL (0.0-0.012); NRBC Pct Auto 0.0 /100WBC (0.0-0.2); Platelet Count 132 X10*3/uL (160-400); Red Blood Count 3.49 X10*6/uL (4.60-5.80); White Blood Count 5.3 X10*3/uL (4.8-10.8)
[2025-05-20 10:51] LABS: Appearance Urine Clear; Glucose Urine UA Negative (Negative); PH 6.5 (5.0-9.0); Specific Gravity - Urine 1.015 (1.005-1.025); UMIC TRIGGER UA YES
[2025-05-20 10:58] LABS: Alanine Aminotransferase 23 U/L (0-40); Albumin Level 4.1 g/dL (3.5-5.0); Alkaline Phosphatase 62 U/L (39-117); Anion Gap 13 (12-20); Aspartate Amino Transferase 33 U/L (5-37); Blood Urea Nitrogen 18 mg/dL (9-16); Calcium 9.0 mg/dL (8.4-10.2); Carbon Dioxide 25 mmol/L (22-29); Chloride 102 mmol/L (96-108); Cholesterol 121 mg/dL (<200); Estimated Glomerular Filt Rate > 60; HDL Cholesterol 30 mg/dL (>40); Potassium 4.0 mmol/L (3.3-5.1); Sodium 136 mmol/L (135-145); Total Protein 7.0 g/dL (6.5-8.0); Triglycerides 85 mg/dL (<150)
[2025-05-20 11:21] LABS: PSA,Total (Free>4and<10) 4.15 ng/mL (0.00-4.00)
[2025-05-23 13:33] LABS: Free Prostate Spec Ag 0.8 ng/mL; Percent Free Prostate Spec Ag 20 % (calc) (>25)
== END 2025-05-20 06:02 | disposition home or self-care (01) ==
LOC: HO.HMGCLDS 06:01
PROVIDERS: PCP Internal Medicine; Visit Provider Internal Medicine
DX: Z00.00 Encounter for general adult medical examination without abnormal findings (principal); I10 Essential (primary) hypertension; R73.9 Hyperglycemia, unspecified; E78.5 Hyperlipidemia, unspecified; Z12.5 Encounter for screening for malignant neoplasm of prostate
CPT/HCPCS: 36415; 80053; 80061; 81001; 84153; 84154; 85025

== ENCOUNTER 2025-07-18 08:51 | Outpatient (REF) | payer OTHER, SELFPAY ==
--- OUTSIDE RECORDS SUMMARY | 2025-06-10 09:00 | XMS_ITS | Continuity of Care Document ---
Author Organization [facility] Address [address] [place] [address] Phone Care Team Providers Care Merchandise Worker Name Role Phone Sheldon DOMINGO, RVT, RPVI, Efrain Unavailable U navailable Allergies, Adverse Reactions, Alerts Substance Reaction Status Criticality No Known Allergies Active No Inform ation Procedures Procedure Date Duplex Scan-extrem Veins; Uni/ CT & [place] O Endovenous Laser, 1st Vein- CT & [place] Office/Outpt E&M Established 15 Mins- CT & [place] Duplex Scan-extrem Veins; Comp- CT & [place] Duplex Scan-extrem Veins; Uni/ CT & [place] J Duplex Scan-extrem Veins; Uni/ CT & [place] J Inj Scleros Solut; Mx Veins 1- CT & MA J Ultrason Guidan Needle Bx-rad- CT & MA J Endovenous Rf, 1st Vein- CT & [place] 2024 Duplex Scan-extrem Veins; Uni/ CT & [place] J Endovenous Rf, 1st Vein- CT & MA 2024 Ultrason Guidan Needle Bx-rad- CT & MA M Inj Sclerosing Solution; Sngl- CT & MA M Offic/outpt E&m Estab 5 Min Trial- Telem edicine CT & [place] Office/Oupt E&M New Pt 30 Mins- CT & [place] Surgical Stockings CVR Reveal Thigh High 20-30 Duplex Scan-extrem Veins; Comp- CT & [place] Advance Directives Directive Yes / No Effective Date File Name No Information Encounters Encounter Description Practice Location Reason(s) For Visit Diagnoses Date Provider Providers Copied on Encounter [facility] MD ROJAS, [address] [place] [address] Dr Javier 1000[address], [id number], tel:[phone] CVR - [facility] Encounter for follow-up examination after completed treatment for conditions other than malignant neoplasmPain in left lower leg 5 Sheldon DOMINGO RVT, KOKO Zuniga. [address] [place] [address], Nick[place], [id number], [place]. tel:[phone] Referring Provider: [address] [place], [address]. tel:[phone] [facility] MD ROJAS, [address] [place] [address] Dr Javier 1000Suite [place] Santana [place], [id number], [place] tel:[phone] [facility] Varicose veins of left lower extremity with other complications 5 Sheldon DOMINGO RVT, RPVI Robert. [address] [place] [address], Nickie [place]ollar [place], [id number], [place]. tel:[phone] Referring Provider: [facility] [address] [place], [address]. tel:[phone] Office/Outpt E&M Established 15 Mins- [place] & [facility] MD ROJAS, [address] [place] [address] Dr Javier 1000Suite 1000Vir[place]ilio [place], [id number], [place] tel:[phone] CVR - [facility] Localized edemaCramp and spasmVenous insufficiency (chronic) (peripheral)P ruritus, unspecifiedEs sential (primary) hypertension 5 Sheldon DOMINGO RVT, RPVI Robert. [address] [place] [address], [place] [address], [place], [id number], [place]. tel:[phone] Referring Provider: Eduardo Gonzalez Dr[address] [place], [address]. tel:[phone] [facility] ROJAS, [address] [place] [address] Dr Javier 1000SuVirgilio ko [place], [id number], [place] tel:[phone] [place] Varicose veins of bilateral lower extremities with pain 5 Sheldon DOMINGO RVT, KOKO Zuniga. [address] [place] [address], [facility] [place], [id number], [place]. tel:[phone] Referring Provider: Ganga CODY, [facility] [place], [address]. tel:[phone] [facility] MD ROJAS, [address] [place] [address] Dr Javier 1000SuVirgilio ko [place], [id number], [place] tel:[phone] [place] - [place] Encounter for follow-up examination after completed treatment for conditions other than malignant neVaricose veins of left lower extremity with pain 5 Sheldon DOMINGO RVT, KOKO Zuniga. [address] [place] [address], [facility] [place], [id number], [place]. tel:[phone] Referring Provider: Ganga CODY, [facility] [place], [address]. tel:[phone] [facility] MD ROJAS, [address] [place] [address] Dr Javier 1000SuVirgilio ko MD, [id number], [place] tel:[phone] [facility] - [place] Encounter for follow-up examination after completed treatment for conditions other than malignant neVaricose veins of left lower extremity with pain 5 Sheldon DOMINGO RVT, KOKO Zuniga. [address] [place] [address], [place] [address], [facility] [place] [place], [id number], [place]. tel:[phone] Referring Provider: Eduardo Gonzalez Dr[address] [place], [address]. tel:[phone] [facility] Angela ROJAS, [address] [place] [address] Dr Javier 1000Virgilio De Luna [place], [id number], [place] tel:[phone] CVR - [facility] Varicose veins of left lower extremity with other complications 5 Sheldon DOMINGO RVT, KOKO Zuniga. [address] [place] [address], [facility] [place], [id number], [place]. tel:[phone] Referring Provider: Ganga CODY, [facility] [place], [address]. tel:[phone] [facility], [address] [place] [address] Dr Javier 1000SuVirgilio ko [place], [id number], [place] tel:[phone] CV[place] - [place] Chronic venous hypertension (idiopathic) with inflammation of left lower extremity 5 Sheldon DOMINGO RVT, KOKO Zuniga. [address] [place] [address], [facility] [place], [id number], [place]. tel:[phone] Referring Provider: Ganga CODY, [facility] [address] [place], [address]. tel:[phone] [facility], [address] [place] [address] Dr Javier 1000SuVirgilio ko [place], [id number], [place] tel:[phone] CVR - [facility] Encounter for follow-up examination after completed treatment for conditions other than malignant neVaricose veins of right lower extremity with pain 5 Sheldon DOMINGO RVT, KOKO Zuniga. [address] [place] [address], [facility] [place] [place], [id number], [place]. tel:[phone] Referring Provider: Ganga CODY, [facility] [address] [place], [address]. tel:[phone] [facility], [address] [place] [address] Dr Javier 1000SuVirgilio ko MD, [id number], [place] tel:[phone] CV[place] - [place] Chronic venous hypertension (idiopathic) with inflammation of right lower extremity 5 Sheldon DOMINGO RVT, RPVI Robert. [address] [place] [address], Nick[place], [id number], [place]. tel:[phone] Referring Provider: Ganga CODY, Eduardo [address] [place], [address]. tel:[phone] [facility], [address] [place] [address] Dr Javier 1000Suite 1000[place], [id number], [place] tel:[phone] [facility] - [place] No Information 5 Sheldon DOMINGO, KEVIN, KOKO Zuniga. [address] [place] [address], [place], [id number], [place]. tel:[phone] Offic/outpt E&m Estab 5 Min Trial- Telemedicine CT & [place] [facility], [address] [place] [address] Dr Javier 1000[facility] [address], [id number], [place] tel:[phone] [place] - [place] Localized edemaCramp and spasmVenous insufficiency (chronic) (peripheral)P ruritus, unspecifiedEs sential (primary) hypertension Dec- 5 Chris Schuler. [facility] [place] [address], Nickie [place], [id number], [place]. tel:[phone] Referring Provider: Ganga CODY, [facility] [place], [address]. tel:[phone] Office/Oupt E&M New Pt 30 Mins- CT & [place] [facility], [address] [place] [address] Dr Javier 1000Suite 1000[place], [id number], [place] tel:[phone] [place] - [place] Pain in right lower legPain in left lower legPain in right legPain in left legEssential (primary) hypertensionP ruritus, unspecifiedCr amp and spasmLocalize d edema 5 Sheldon DOMINGO RVT, KOKO Zuniga. [address] [place] [address], Nickie [place], [id number], [place]. tel:[phone] Referring Provider: Ganga CODY, [place] [address] [place], [address]. tel:[phone] [facility], [address], [place], [id number], [place] tel:[phone] CVR - [place] - [place] Varicose veins of bilateral lower extremities with pain Sheldon DOMINGO, RVT, RPVI Efrain. [address], [address], [place], [id number], [place]. tel:[phone] Referring Provider: Ganga CODY[address] , [place], [address]. tel:[phone] Family History Family Member Type Diagnosis Age At Onset No Information Payers Payer name Insurance type Covered democrat ID Abdirizak myrick([facility] [id number] Social History Type Description Quantity Date Captured Comments Sex Male Smoking Status No Information Chief Complaint And Reason For Visit No Information Reason For Referral Reason For Referral No Information Plan Of Treatment Date Type Action Status Goal Tobacco cessation counseling completed Goal Diet education completed Goal Tobacco cessation counseling completed Goal Tobacco cessation counseling completed Goal Diet education completed Referral Ordered: Weight management: Referral to physician timeframe: 3 Months (related to Body mass index (BMI) 23.0-23.9, adult) ordered Referral Ordered: Weight management: Referral to physician timeframe: 3 Months (related to Body mass index (BMI) 23.0-23.9, adult) ordered Appointment Zander Brambila BOOKED Appointment Zander Brambila BOOKED History Of Present Illness Encounter Date Complaint History Of Prese nt Illness No Information Functional Status Date Functional Assessmen t No Information Instructions Date Instruction Additional Infor mation Compression stocking usage as conservative measure Related to Localized edema Patient education booklet given Related to Localized edema Lifestyle education Related to B saloni mass index (BMI) 23.0-23.9, adult Giving Encouragement to exercise Related to Body mass index (BMI) 23.0-23.9, adult Diet education Related to Body mass index (BMI) 23.0-23.9, adult Patient education booklet given Related to Localized edema Pre and post instruc tions reviewed and provided Related to Localized edema Patient education booklet given Related to Pain in right lower leg Pre and post instruc tions reviewed and provided Related to Pain in right lower leg Diet education Related to Body mass index (BMI) 23.0-23.9, adult Giving Encouragement to exercise Related to Body mass index (BMI) 23.0-23.9, adult Lifestyle education Related to B saloni mass index (BMI) 23.0-23.9, adult Assessments Type Assessment Date No Information Patient Care Teams Name Effective Dates (start - stop) Status Members No Information
--- NOTE | ~2025-07-18 | XR_ITS ---
EXAMINATION: XR KNEE, RIGHT CLINICAL INFORMATION: M25.569 - Pain in unspecified knee COMPARISON: X-ray 01/25/2025 TECHNIQUE: AP bilateral knees one view. Right knee sunrise one view. FINDINGS: Severe medial compartment arthritis. Mild lateral, mild-moderate patellofemoral arthritis. No visible acute fracture, dislocation. No suspicious bony lesion. Soft tissue calcifications medial to the femur could reflect vascular calcifications or dystrophic calcifications. XR/XR knee RT 2V IMPRESSION: Tricompartment osteoarthritis. Severe medial compartment arthritis. Electronically signed by: Len Correa MD 07/19/2025 08:50 AM MARC
== END 2025-07-18 08:52 | disposition home or self-care (01) ==
LOC: HO.HOSX 08:51
PROVIDERS: Visit Provider Physician Assistant
DX: M17.11 Unilateral primary osteoarthritis, right knee (principal)
CPT/HCPCS: 20610; 73560; J0665; J1100; J2003

== ENCOUNTER 2025-07-18 14:18 | Outpatient (AMB) | payer OTHER, SELFPAY ==
--- OUTSIDE RECORDS SUMMARY | 2025-06-10 09:00 | XMS_ITS | Continuity of Care Document ---
Author Organization [facility] Address [address] [place] [address] Phone Care Team Providers Care Real Estate Paralegal Name Role Phone Sheldon DOMINGO, RVT, RPVI, [...] Providers Copied on Encounter [facility] MD ROJAS, [address] [place] [address] Dr Javier 1000Suite 1000[place], [id number], tel:[phone] CVR - [facility] Encounter for follow-up examination after completed treatment for conditions other than malignant neoplasmPain in left lower leg 5 Sheldon DOMINGO RVT, KOKO Zuniga. [address] [place] [address], [place], [id number], [place]. tel:[phone] Referring Provider: [place] [address] [place], [address]. tel:[phone] [place] [facility] MD ROJAS, [address] [place] [address] Dr Javier 1000Suite [place] Santana [place], [id number], [place] tel:[phone] [facility] Varicose veins of left lower extremity with other complications 5 Sheldon DOMINGO RVT, RPVI Robert. [address] [place] [address], [place], [id number], [place]. tel:[phone] Referring Provider: Ganga [facility]ODY [facility] [address] [place], [address]. tel:[phone] Office/Outpt E&M Established 15 Mins- [place] & [facility] MD ROJAS, [address] [place] [address] Dr Javier 1000Suite 1000[place], [id number], [place] tel:[phone] CVR - [facility] Localized edemaCramp and spasmVenous insufficiency (chronic) (peripheral)P ruritus, unspecifiedEs sential (primary) hypertension 5 Sheldon DOMINGO RVT, RPVI Robert. [address] [place] [address], [place] [address], [place], [id number], [place]. tel:[phone] Referring Provider: Eduardo Gonzalez Dr[address] [place], [address]. tel:[phone] [facility] ROJAS, [address] [place] [address] Dr Javier 1000SuVirgilio ko MD, [id number], [place] tel:[phone] [place] - [place] Varicose veins of bilateral lower extremities with pain 5 Sheldon DOMINGO RVT, KOKO Zuniga. [address] [place] [address], [facility] [place] [place], [id number], [place]. tel:[phone] Referring Provider: Ganga CODY, [facility] [address] [place], [address]. tel:[phone] [facility] MD ROJAS, [address] [place] [address] Dr Javier 1000SuVirgilio ko MD, [id number], [place] tel:[phone] [facility] - [place] Encounter for follow-up examination after completed treatment for conditions other than malignant neVaricose veins of left lower extremity with pain 5 Sheldon DOMINGO RVT, KOKO Zuniga. [address] [place] [address], [facility] [place], [id number], [place]. tel:[phone] Referring Provider: Ganga CODY, [facility] [place], [address]. tel:[phone] [facility] MD ROJAS, [address] [place] [address] Dr Javier 1000SuVirgilio ko MD, [id number], [place] tel:[phone] CV[place] - [place] Encounter for follow-up examination after completed treatment for conditions other than malignant neVaricose veins of left lower extremity with pain 5 Sheldon DOMINGO RVT, KOKO Zuniga. [address] [place] [address], [place] [address], [facility] [place], [id number], [place]. tel:[phone] Referring Provider: Eduardo Gonzalez Dr[address] [place], [address]. tel:[phone] [facility] ROJAS, [address] [place] [address] Dr Javier 1000Virgilio De [place] MD, [id number], [place] tel:[phone] CVR - [facility] Varicose veins of left lower extremity with other complications 5 Sheldon DOMINGO RVT, KOKO Zuniga. [address] [place] [address], [facility] [place], [id number], [place]. tel:[phone] Referring Provider: Ganga CODY, [facility] [place], [address]. tel:[phone] [facility], [address] [place] [address] Dr Javier 1000SuVirgilio ko MD, [id number], [place] tel:[phone] CVR - [place] - [place] Chronic venous hypertension (idiopathic) with inflammation of left lower extremity 5 Sheldon DOMINGO RVT, KOKO Zuniga. [address] [place] [address], [facility] [place] [place], [id number], [place]. tel:[phone] Referring Provider: Ganga CODY, [facility] [address] [place], [address]. tel:[phone] [facility], [address] [place] [address] Dr Javier 1000SuVirgilio ko MD, [id number], [place] tel:[phone] CVR - [facility] Encounter for follow-up examination after completed treatment for conditions other than malignant neVaricose veins of right lower extremity with pain 5 Sheldon DOMINGO RVT, KOKO Zuniga. [address] [place] [address], [facility] [place], [id number], [place]. tel:[phone] Referring Provider: Ganga CODY, [facility] [address] [place], [address]. tel:[phone] [facility], [address] [place] [address] Dr Javier 1000SuVirgilio ko MD, [id number], [place] tel:[phone] CVR - [place] - [place] Chronic venous hypertension (idiopathic) with inflammation of right lower extremity 5 Sheldon DOMINGO RVT, RPVI Robert. [address] [place] [address], Nick[place], [id number], [place]. tel:[phone] Referring Provider: Ganga CODY, [address] [place], [address]. tel:[phone] [place] [facility], [address] [place] [address] Dr Javier 1000Suite 1000[place], [id number], [place] tel:[phone] [place] - [place] No Information 5 Sheldon DOMINGO, KEVIN, KOKO Zuniga. [address] [place] [address], [place], [id number], [place]. tel:[phone] Offic/outpt E&m Estab 5 Min Trial- Telemedicine CT & [place] [facility], [address] [place] [address] Dr Javier 1000[facility] [address]Vir[place], [id number], [place] tel:[phone] CVR - [place] Localized edemaCramp and spasmVenous insufficiency (chronic) (peripheral)P ruritus, unspecifiedEs sential (primary) hypertension Dec- 5 Chris Schuler. [facility] [place] [address], [place], [id number], [place]. tel:[phone] Referring Provider: Ganga CODY, [facility] [place], [address]. tel:[phone] Office/Oupt E&M New Pt 30 Mins- CT & [place] [facility], [address] [place] [address] Dr Javier 1000Suite 1000Vir[place]ilio MD, [id number], [place] tel:[phone] [place] - [place] Pain in right lower legPain in left lower legPain in right legPain in left legEssential (primary) hypertensionP ruritus, unspecifiedCr amp and spasmLocalize d edema 5 Sheldon DOMINGO RVT, KOKO Zuniga. [address] [place] [address], [place], [id number], [place]. tel:[phone] Referring Provider: Ganga CODY, [place] [address], [address]. tel:[phone] [facility], [address], [place], [id number], [place] tel:[phone] CVR - [place] - [place] Varicose veins of bilateral lower extremities with pain Sheldon DOMINGO, RVT, RPVI Efrain. [address] [facility], [address], [place], [id number], [place]. tel:[phone] Referring Provider: Ganga CODY[address] , [place], [address]. tel:[phone] Family History Family Member Type Diagnosis Age At Onset No Information Payers Payer name Insurance type Covered libertarian ID Abdirizak myrick([place] [facility] [id number] Social History Type Description Quantity Date Captured Comments Sex Male Smoking Status No Information Chief Complaint And Reason For Visit No Information Reason For Referral Reason For Referral No Information Plan Of Treatment Date Type Action Status Goal Tobacco cessation counseling completed Goal Diet education completed Goal Tobacco cessation counseling completed Goal Diet education completed Goal Tobacco cessation counseling completed Referral Ordered: Weight management: Referral to [...] reviewed and provided Related to Localized edema Lifestyle education Related to B saloni mass index (BMI) 23.0-23.9, adult Giving Encouragement to exercise Related to Body mass index (BMI) 23.0-23.9, adult Diet education Related to Body mass index (BMI) 23.0-23.9, adult Pre and post instruc tions reviewed and provided Related to Pain in right lower leg Patient education booklet given Related to Pain in right lower leg Assessments Type Assessment Date No Information Patient Care Teams Name Effective Dates (start - stop) Status Members No Information
--- NOTE | 2025-07-18 14:31 | A.OFFVIS_ITS ---
Intake Visit Reasons: Newprob-Pain in the right knee Intake Note: Zander is a 80 year old male who presents today as a new problem for his right knee pain. Patient was referred by his PCP 05/19/25 and he had a RT Knee X ray 01/25/25. At today's visit he states ongoing pain for since . Patient notices that his pain is worse when he is going down the stairs. He states that his pain is tolerable but it never goes away. Patient had and injury a couple years ago when he had a slip and fall on ice. Allergies No Known Allergies (No Known Allergies*) Allergy (Verified 07/18/25 14:34) Medication List - Last Reconciled 07/20/25 by Kalia Izaguirre PA-C atenolol (Tenormin) 50 mg PO DAILY atorvastatin (Lipitor) 40 mg PO DAILY clopidogrel 75 mg PO DAILY lisinopril (Zestril) 40 mg PO DAILY sildenafil (Viagra) 100 mg PO DAILY PRN triamterene-hydrochlorothiazid 37.5-25 mg 1 cap PO QAM HPI HPI Newprob-Pain in the right knee: Details: 80-year-old gentleman presents to the office today for right knee pain. He has had pain for approximately the last 6-8 months which is worse with going downstairs and walking long distances. He sees me for steroid injections in the shoulder but he has not had any treatment on the knee. [facility] Medical History (Updated 07/20/25 @ 08:57 by Kalia Izaguirre PA-C) CAD (coronary artery disease) Bilateral cataracts Hyperglycemia Anemia Herniated disc Hernia Hyperlipidemia Hypertension Normocytic anemia Surgical History (Updated 05/20/25 @ 08:40 by Hollie Starks MD) History of surgery S/P colonoscopic polypectomy Family History Father Pneumonia Mother Diabetes mellitus Sister No problems noted. 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 Full range of motion with crepitus. Medial joint line tenderness. Calf supple and nontender neurovascularly intact. Office Procedures AMB Joint Injection/Aspiration Joint Injection/Aspiration Primary Site: right knee Prep: site was prepped using aseptic technique, ethochloride spray was applied and injection warnings given Injected: 40 mg of, with 3 mL of, 1% plain lidocaine, 0.25% bupivacaine, in the joint and decadron Approach Used: anterolateral Procedure: The patient tolerated the procedure well and there was some relief with the local anesthesia Coding 02841 - Glenohumeral/Tronchanteric Bursa/Intraarticular Procedure code (CPT) selection complete Results Reviewed Results Reviewed: X-rays of the right knee obtained in the office today and reviewed by me show medial compartment arthritis along with patellofemoral arthritis Assessment & Plan Assessment & Plan (1) Osteoarthritis of right knee: Code(s): M17.11 - Unilateral primary osteoarthritis, right knee Category: Medical Plan: We discussed options today which includes conservative management with physical therapy, anti-inflammatories and steroid injections. The patient is interested in steroid injection given his relief with shoulder injections in the past. Right knee was injected today with steroid which the patient tolerated well. He will continue with activities as tolerated and if symptoms persist or worsen he will contact our office otherwise he will follow up as needed. Orders: Orders XR knee RT 2V 07/18/25 M25.569 - Pain in unspecified knee Coding Level of Care Code Est Pt Level 3 (27450) Complex EM visit Add On G2211 Diagnoses Osteoarthritis of right knee M17.11 CPT Codes Coding - Joint 7: 53426 - Glenohumeral/Tronchanteric Bursa/Intraarticular ([id number])
== END 2025-07-18 15:11 | disposition home or self-care (01) ==
LOC: HO.HOS 14:20
PROVIDERS: PCP Internal Medicine; Visit Provider Physician Assistant
DX: M17.11 Unilateral primary osteoarthritis, right knee (principal)
CPT/HCPCS: 20610; 99213

== ENCOUNTER → 2025-07-18 14:23 | Outpatient (BNV) | payer OTHER, SELFPAY | PROVIDERS: Visit Provider Radiology Diagnostic Ultrasound | DX: M17.11 Unilateral primary osteoarthritis, right knee (principal) | CPT/HCPCS: 73560 ==

== ENCOUNTER 2025-08-11 09:03 | Outpatient (AMB) | payer OTHER, SELFPAY ==
--- NOTE | 2025-08-11 09:09 | A.OFFVIS_ITS ---
Vital Signs 08/11/25 09:16 Height 5 ft 8 in Weight 150 lb BMI 22.8 Intake Visit Reasons: INJ- Left shoulder inj Intake Note: Zander is a 80 year old male who presents today for a left shoulder injection, last injection on 02/25/25. Patient reports last injection provided him with mild relief for about a month. He wishes to repeat injection today. Allergies No Known Allergies (No Known Allergies*) Allergy (Verified 08/11/25 09:16) Medication List - Last Reconciled 08/11/25 by Kalia Izaguirre PA-C atenolol (Tenormin) 50 mg PO DAILY atorvastatin (Lipitor) 40 mg PO DAILY clopidogrel 75 mg PO DAILY lisinopril (Zestril) 40 mg PO DAILY sildenafil (Viagra) 100 mg PO DAILY PRN triamterene-hydrochlorothiazid 37.5-25 mg 1 cap PO QAM HPI HPI INJ- Left shoulder inj: Details: 80-year-old gentleman presents to the office today for a follow-up left shoulder pain status post injection. States the injections are quite helpful and allow him to perform activities without significant pain. Currently he has developed increased pain which does limit his ability to perform activities such as reaching or overhead movement. [facility] Medical History (Updated 07/20/25 @ 08:57 by Kalia Izaguirre PA-C) CAD (coronary artery disease) Bilateral cataracts Hyperglycemia Anemia Herniated disc Hernia Hyperlipidemia Hypertension Normocytic anemia Surgical History History of surgery S/P colonoscopic polypectomy Family History Father Pneumonia Mother Diabetes mellitus Sister No problems noted. 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 He is able to bring the hand to the back of his head. Unable to reach overhead . NVI. ? Office Procedures AMB Joint Injection/Aspiration Joint Injection/Aspiration Primary Site: Left Shoulder Prep: site was prepped using aseptic technique, ethochloride spray was applied and injection warnings given Injected: 40 mg of, Decadron, with 3 mL of, 1% plain Lidocaine, 0.25% Bupivacaine and in the subcromial space Approach Used: posterolateral Procedure: The patient tolerated the procedure well and there was some relief with the local anesthesia Coding 76943 - Glenohumeral/Tronchanteric Bursa/Intraarticular Procedure code (CPT) selection complete Assessment & Plan Assessment & Plan (1) Osteoarthritis of left shoulder: Code(s): M19.012 - Primary osteoarthritis, left shoulder Category: Medical Qualifiers: Osteoarthritis type: primary Qualified Code(s): M19.012 - Primary osteoarthritis, left shoulder Plan We discussed options today, which include steroid injection. The patient did consent to move forward with the left shoulder injection, which was tolerated well. I recommended rest, ice, and elevation and OTC anti-inflammatories as needed for discomfort. If symptoms persist or worsens over the next 6-8 weeks, patient will contact the office, otherwise follow-up as needed. Coding Level of Care Code Complex visit Add On G2211 Diagnoses Primary osteoarthritis of left shoulder M19.012 Osteoarthritis type: primary CPT Codes Coding - Joint 7: 67649 - Glenohumeral/Tronchanteric Bursa/Intraarticular ([id number])
[2025-08-11 09:16] VITALS: BMI 22.8
== END 2025-08-11 10:09 | disposition home or self-care (01) ==
LOC: HO.HOS 09:03
PROVIDERS: Visit Provider Physician Assistant
DX: M19.012 Primary osteoarthritis, left shoulder (principal)
CPT/HCPCS: 20610

== ENCOUNTER → 2025-08-11 09:03 | Outpatient (BNVA) | payer OTHER, SELFPAY | PROVIDERS: Visit Provider Physician Assistant | DX: M19.012 Primary osteoarthritis, left shoulder (principal) | CPT/HCPCS: 20610; J0665; J1100; J2003 ==